=== PATIENT | female | born 1960 | race Caucasian/White ===

== ENCOUNTER 2016-06-11 10:11 | Emergency (ER) | payer MEDICAID ==
[~2016-06-11] VITALS: Ht 170.2 cm; Wt 81.6 kg
[~2016-06-11 10:11] MED LIST: ALPR-229 PO; HYDR-2616 PO; LACO100T PO; LAMO200T34 PO; LEVE750T16 PO; LISI-275 PO; METH4PAK PO; NITR-48 PO; NORTRIPTYLINE PO
[2016-06-11 10:28] VITALS: BP 110/58
== END 2016-06-11 11:36 | disposition home or self-care (01) ==
LOC: ER 10:11
DX: J20.9 Acute bronchitis, unspecified (principal); J44.9 Chronic obstructive pulmonary disease, unspecified; I10 Essential (primary) hypertension; F17.210 Nicotine dependence, cigarettes, uncomplicated
CPT/HCPCS: 71020; 99284; J7030

== ENCOUNTER 2017-01-11 11:09 | Emergency (ER) | payer MEDICAID ==
[~2017-01-11] VITALS: Ht 170.2 cm; Wt 86.2 kg
[2017-01-11 11:09] VITALS: BP 142/92
[2017-01-11] MEDS ORDERED: KETOROLAC TROMETH 60MG/2ML VIAL IM ONE (13:15)
[2017-01-11] MEDS ORDERED: diphenhdrAMINE HCL 25 MG CAP PO ONE (13:15)
== END 2017-01-11 14:08 | disposition home or self-care (01) ==
LOC: ER 11:09
DX: J32.9 Chronic sinusitis, unspecified (principal); I10 Essential (primary) hypertension; G40.909 Epilepsy, unspecified, not intractable, without status epilepticus; Z98.51 Tubal ligation status; F17.210 Nicotine dependence, cigarettes, uncomplicated
CPT/HCPCS: 70486; 96372; 99284; J1885

== ENCOUNTER 2017-08-01 16:13 | Observation (INO) | payer MEDICAID ==
[~2017-08-01] VITALS: Ht 170.2 cm; Wt 86.2 kg
[~2017-08-01 16:13] MED LIST changes: +ALPR1TAB2 PO; +FENO1TAB42 PO; -HYDR-2616 PO; +LEVE500T22 PO; -LEVE750T16 PO; -LISI-275 PO; -METH4PAK PO; +NORT25CA PO; -NORTRIPTYLINE PO
[2017-08-01 18:01] LABS: Basophils # (auto) 0.1 uL; Eosinophils # (auto) 0.1 uL; Eosinophils % (auto) 1.7 % (0.0-7.0); Hematocrit 43.3 % (36.0-46.0); Hemoglobin 14.5 g/dL (12.2-16.2); Lymphocytes # (auto) 2.2 uL; Lymphocytes % (auto) 35.6 % (10.0-50.0); Mean Corpuscular Hemoglobin 30.9 pg (28.0-32.0); Mean Corpuscular Hgb Conc. 33.4 g/dL (32.0-36.0); Mean Corpuscular Volume 92.5 fL (80.0-100.0); Monocytes # (auto) 0.4 uL; Monocytes % (auto) 7.3 % (0.0-12.0); Neutrophils # (auto) 3.3 uL; Neutrophils % (auto) 54.4 % (37.0-80.0); Nucleated Red Blood Cells % 0.3 %; Platelet Count (auto) 297 10^3/uL (140-450); Red Blood Cells 4.68 10^6/uL (4.0-5.20); Red Cell Distribution Width 13.2 % (11.8-14.3); White Blood Cell 6.1 10^3/uL (4.4-10.8)
[2017-08-01 18:21] LABS: Urine Bacteria NONE SEEN /hpf (None Seen); Urine Blood Negative /uL (Negative); Urine Mucus FEW (None Seen); Urine Specific Gravity 1.025 (1.001-1.035); Urine WBC 229 /hpf (0 - 5)
[2017-08-01 18:29] LABS: Alanine Aminotransferase 34 U/L (13-56); Albumin 4.3 g/dL (3.4-5.0); Alkaline Phosphatase 67 U/L (45-117); Anion Gap 10 (5-15); BUN/Creatinine Ratio 8.6; Bilirubin, Total 0.5 mg/dL (0.2-1.0); Blood Urea Nitrogen 7 mg/dL (7-18); Carbon Dioxide 24 mmol/L (21-32); Chloride 107 mmol/L (98-107); GFR African American 94 mL/min; GFR Non-African American 78 mL/min; Glucose 91 mg/dL (74-106); Potassium 3.9 mmol/L (3.5-5.1); Sodium 141 mmol/L (136-145); Total Protein 7.7 g/dL (6.4-8.2)
[2017-08-01 18:48] LABS: Aspartate Aminotransferase 19 U/L (15-37)
[2017-08-01] MEDS ORDERED: ACETAMINOPHEN 325 MG TAB PO ONE (19:15)
[2017-08-01 20:03] LABS: Alcohol, Urine < 3.0 mg/dL (0-5); Amphetamine Screen, Urine NEGATIVE (NEGATIVE); Barbiturate Scree,Urine NEGATIVE (NEGATIVE); Benzodiazephine Screen, Urine POSITIVE (NEGATIVE); Cannabinoid Screen, Urine NEGATIVE (NEGATIVE); Cocaine Screen, Urine NEGATIVE (NEGATIVE); Opiate Scree,Urine NEGATIVE (NEGATIVE); Phencyclidine Screen, Urine NEGATIVE (NEGATIVE)
[2017-08-01 21:00] VITALS: BP 150/95
[2017-08-01] MEDS ORDERED: cefTRIAXone 1GM/10ml IVPUSH 10 ML IV ONE (21:00)
== END 2017-08-01 21:26 | disposition home or self-care (01) | DRG 54 ==
LOC: ER 16:13 → OVERFLOW 19:16 → ER 21:26
PROVIDERS: ADMIT Family Medicine; ATTEND Family Medicine
DX: R51 Headache (principal); N30.00 Acute cystitis without hematuria; G40.909 Epilepsy, unspecified, not intractable, without status epilepticus; Z82.49 Family history of ischemic heart disease and other diseases of the circulatory system
CPT/HCPCS: 36415; 70450; 71045; 80053; 80307; 81001; 83735; 84484; 85025; 99285; G0378

== ENCOUNTER 2017-08-04 10:28 | Emergency (ER) | payer MEDICAID ==
[~2017-08-04] VITALS: Ht 170.2 cm; Wt 88.0 kg
[2017-08-04 10:38] VITALS: BP 134/56
== END 2017-08-04 16:20 | disposition left against medical advice (07) ==
LOC: ER 10:28
DX: R63.0 Anorexia (principal); R42 Dizziness and giddiness; Z53.21 Procedure and treatment not carried out due to patient leaving prior to being seen by health care provider
CPT/HCPCS: 93005

== ENCOUNTER 2017-10-22 11:40 | Emergency (ER) | payer MEDICAID ==
[~2017-10-22] VITALS: Ht 170.2 cm; Wt 87.1 kg
[2017-10-22] MEDS ORDERED: LORazepam 2MG/ML-1ML VIAL ONE (12:04)
[2017-10-22] MEDS ORDERED: LORazepam 2MG/ML-1ML VIAL IV ONE (12:15)
[2017-10-22 12:18] LABS: Urine WBC None Seen /hpf (0 - 5)
[2017-10-22 12:18] LABS: Basophils # (auto) 0 uL; Basophils % (auto) 0.5 % (0.0-2.0); Eosinophils # (auto) 0.1 uL; Hematocrit 45.1 % (36.0-46.0); Lymphocytes # (auto) 2.2 uL; Lymphocytes % (auto) 29.5 % (10.0-50.0); Mean Corpuscular Hemoglobin 30.7 pg (28.0-32.0); Mean Corpuscular Hgb Conc. 33.3 g/dL (32.0-36.0); Mean Corpuscular Volume 92.2 fL (80.0-100.0); Monocytes # (auto) 0.3 uL; Monocytes % (auto) 4.5 % (0.0-12.0); Neutrophils # (auto) 4.8 uL; Neutrophils % (auto) 64.5 % (37.0-80.0); Nucleated Red Blood Cells % 0.1 %; Platelet Count (auto) 332 10^3/uL (140-450); Red Blood Cells 4.89 10^6/uL (4.0-5.20); Red Cell Distribution Width 12.9 % (11.8-14.3); White Blood Cell 7.4 10^3/uL (4.4-10.8)
[2017-10-22] MEDS ORDERED: LEVETIRACETAM INJ 1,000 MG in D5W 5% 100 ML IV ONE (12:30)
[2017-10-22 12:33] LABS: Urine Bacteria NONE SEEN /hpf (None Seen); Urine Blood Negative /uL (Negative); Urine Specific Gravity 1.007 (1.001-1.035)
[2017-10-22] MEDS ORDERED: ACETAMINOPHEN 325 MG TAB PO ONE (12:45)
[2017-10-22 13:06] LABS: Albumin 4.4 g/dL (3.4-5.0); BUN/Creatinine Ratio 7.6; Bilirubin, Total 0.4 mg/dL (0.2-1.0); Total Protein 7.9 g/dL (6.4-8.2)
[2017-10-22 14:53] VITALS: BP 125/92
== END 2017-10-22 15:32 | disposition home or self-care (01) ==
LOC: ER 11:40
DX: G40.909 Epilepsy, unspecified, not intractable, without status epilepticus (principal); I12.9 Hypertensive chronic kidney disease with stage 1 through stage 4 chronic kidney disease, or unspecified chronic kidney disease; N18.9 Chronic kidney disease, unspecified; E78.5 Hyperlipidemia, unspecified; F17.210 Nicotine dependence, cigarettes, uncomplicated
CPT/HCPCS: 36415; 80053; 81001; 82542; 85025; 93005; 94761; 96365; 96375; 99285; J1953; J2060; J7060

== ENCOUNTER 2018-04-13 17:22 | Emergency (ER) | payer MEDICAID ==
[~2018-04-13] VITALS: Ht 167.6 cm; Wt 79.4 kg
[~2018-04-13 17:22] MED LIST changes: -NITR-48 PO; +NITR100C44 PO
[2018-04-13 18:14] LABS: Basophils # (auto) 0 uL; Basophils % (auto) 0.5 % (0.0-2.0); Eosinophils # (auto) 0.1 uL; Eosinophils % (auto) 0.8 % (0.0-7.0); Hematocrit 41.7 % (36.0-46.0); Hemoglobin 13.9 g/dL (12.2-16.2); Lymphocytes # (auto) 1.2 uL; Lymphocytes % (auto) 16.2 % (10.0-50.0); Mean Corpuscular Hemoglobin 30.8 pg (28.0-32.0); Mean Corpuscular Hgb Conc. 33.4 g/dL (32.0-36.0); Mean Corpuscular Volume 92.1 fL (80.0-100.0); Monocytes # (auto) 0.3 uL; Monocytes % (auto) 3.9 % (0.0-12.0); Neutrophils # (auto) 5.8 uL; Neutrophils % (auto) 78.6 % (37.0-80.0); Platelet Count (auto) 301 10^3/uL (140-450); Red Blood Cells 4.52 10^6/uL (4.0-5.20); Red Cell Distribution Width 12.8 % (11.8-14.3); White Blood Cell 7.3 10^3/uL (4.4-10.8)
[2018-04-13 18:32] LABS: Albumin 4.3 g/dL (3.4-5.0); BUN/Creatinine Ratio 12.8; Calcium 9.2 mg/dL (8.5-10.1); Potassium 3.9 mmol/L (3.5-5.1)
[2018-04-13 18:35] LABS: Bilirubin, Total 0.5 mg/dL (0.2-1.0); Total Protein 7.7 g/dL (6.4-8.2)
[2018-04-14 05:43] VITALS: BP 139/97
[2018-04-14] MEDS ORDERED: MECLIZINE HCL 25 MG TAB PO ONE (07:15)
[2018-04-14 08:29] LABS: Urine Bacteria FEW /hpf (None Seen); Urine Blood Negative /uL (Negative); Urine Mucus FEW (None Seen); Urine Specific Gravity 1.013 (1.001-1.035); Urine WBC 25 /hpf (0 - 5)
== END 2018-04-14 08:57 | disposition home or self-care (01) ==
LOC: ER 17:22 → EDBD 17:22 → ER 04-14 08:57
DX: R42 Dizziness and giddiness (principal); I12.9 Hypertensive chronic kidney disease with stage 1 through stage 4 chronic kidney disease, or unspecified chronic kidney disease; N18.9 Chronic kidney disease, unspecified; E78.5 Hyperlipidemia, unspecified; F17.210 Nicotine dependence, cigarettes, uncomplicated; Z88.8 Allergy status to other drugs, medicaments and biological substances; Z79.899 Other long term (current) drug therapy; Z98.51 Tubal ligation status
CPT/HCPCS: 36415; 70450; 80053; 81001; 85025; 93005; 99284; J8597

== ENCOUNTER 2019-01-02 21:13 | Emergency (ER) | payer MEDICAID ==
[~2019-01-02] VITALS: Ht 172.7 cm; Wt 67.1 kg
[2019-01-02 22:32] LABS: Urine Bacteria FEW /hpf (None Seen); Urine Blood Negative /uL (Negative); Urine Hyaline Cast FEW /lpf (0 - 2); Urine Specific Gravity 1.022 (1.001-1.035); Urine WBC 28 /hpf (0 - 5)
[2019-01-02 22:42] LABS: Basophils # (auto) 0 uL; Basophils % (auto) 0.4 % (0.0-2.0); Eosinophils # (auto) 0.1 uL; Eosinophils % (auto) 1.5 % (0.0-7.0); Hematocrit 40.3 % (36.0-46.0); Hemoglobin 13.8 g/dL (12.2-16.2); Lymphocytes # (auto) 1.1 uL; Lymphocytes % (auto) 18.5 % (10.0-50.0); Mean Corpuscular Hemoglobin 31.4 pg (28.0-32.0); Mean Corpuscular Hgb Conc. 34.2 g/dL (32.0-36.0); Mean Corpuscular Volume 91.9 fL (80.0-100.0); Monocytes # (auto) 0.3 uL; Monocytes % (auto) 5.5 % (0.0-12.0); Neutrophils # (auto) 4.5 uL; Neutrophils % (auto) 74.1 % (37.0-80.0); Platelet Count (auto) 285 10^3/uL (140-450); Red Blood Cells 4.38 10^6/uL (4.0-5.20); Red Cell Distribution Width 12.8 % (11.8-14.3); White Blood Cell 6.1 10^3/uL (4.4-10.8)
[2019-01-02 22:59] LABS: Albumin 4.5 g/dL (3.4-5.0); Anion Gap 7 (5-15); Blood Urea Nitrogen 10 mg/dL (7-18); Calcium 9.4 mg/dL (8.5-10.1); Carbon Dioxide 26 mmol/L (21-32); Chloride 107 mmol/L (98-107); Glucose 99 mg/dL (74-106); Magnesium 2.5 mg/dL (1.6-2.6); Sodium 140 mmol/L (136-145)
[2019-01-02 23:05] LABS: Alanine Aminotransferase 28 U/L (13-56); Alkaline Phosphatase 39 U/L (45-117); Aspartate Aminotransferase 17 U/L (15-37); BUN/Creatinine Ratio 9.6; Bilirubin, Total 0.4 mg/dL (0.2-1.0); GFR African American 70 mL/min; GFR Non-African American 58 mL/min
[2019-01-02 23:11] LABS: INR 1.09 (0.9-1.15); Partial Thromboplastin Time 24.1 sec (23.64-32.05)
[2019-01-03 00:33] LABS: Alcohol, Urine < 3.0 mg/dL (0-5); Amphetamine Screen, Urine NEGATIVE (NEGATIVE); Barbiturate Scree,Urine NEGATIVE (NEGATIVE); Benzodiazephine Screen, Urine NEGATIVE (NEGATIVE); Cannabinoid Screen, Urine NEGATIVE (NEGATIVE); Cocaine Screen, Urine NEGATIVE (NEGATIVE); Opiate Scree,Urine NEGATIVE (NEGATIVE); Phencyclidine Screen, Urine NEGATIVE (NEGATIVE)
[2019-01-03 07:48] VITALS: BP 105/75
[2019-01-03] MEDS ORDERED: ONDANSETRON ODT 4 MG TAB PO ONE (08:00)
[2019-01-03] MEDS ORDERED: MECLIZINE HCL 25 MG TAB PO ONE (08:00)
== END 2019-01-03 08:00 | disposition home or self-care (01) ==
LOC: EDBD 21:13 → ER 21:20
DX: R42 Dizziness and giddiness (principal); N39.0 Urinary tract infection, site not specified; E78.5 Hyperlipidemia, unspecified; I12.9 Hypertensive chronic kidney disease with stage 1 through stage 4 chronic kidney disease, or unspecified chronic kidney disease; N18.9 Chronic kidney disease, unspecified; F17.210 Nicotine dependence, cigarettes, uncomplicated; Z98.51 Tubal ligation status; Z79.899 Other long term (current) drug therapy
CPT/HCPCS: 36415; 70450; 71045; 80053; 80307; 81001; 83735; 83880; 84484; 85025; 85379; 85610; 85730; 93005; 99284; J8597; Q0162

== ENCOUNTER 2019-02-24 19:35 | Emergency (ER) | payer MEDICAID ==
[~2019-02-24] VITALS: Ht 170.2 cm; Wt 36.3 kg
[2019-02-24 20:09] LABS: Basophils # (auto) 0.1 uL; Basophils % (auto) 0.9 % (0.0-2.0); Eosinophils # (auto) 0.2 uL; Eosinophils % (auto) 2.3 % (0.0-7.0); Hematocrit 40.3 % (36.0-46.0); Hemoglobin 13.4 g/dL (12.2-16.2); Lymphocytes # (auto) 2.9 uL; Lymphocytes % (auto) 35.3 % (10.0-50.0); Mean Corpuscular Hemoglobin 30.9 pg (28.0-32.0); Mean Corpuscular Hgb Conc. 33.2 g/dL (32.0-36.0); Mean Corpuscular Volume 93.1 fL (80.0-100.0); Monocytes # (auto) 0.4 uL; Monocytes % (auto) 4.9 % (0.0-12.0); Neutrophils # (auto) 4.7 uL; Neutrophils % (auto) 56.6 % (37.0-80.0); Nucleated Red Blood Cells % 0.1 %; Platelet Count (auto) 360 10^3/uL (140-450); Red Blood Cells 4.33 10^6/uL (4.0-5.20); Red Cell Distribution Width 13.4 % (11.8-14.3); White Blood Cell 8.3 10^3/uL (4.4-10.8)
[2019-02-24 20:30] LABS: Albumin 4.1 g/dL (3.4-5.0); BUN/Creatinine Ratio 15.2; Calcium 8.5 mg/dL (8.5-10.1); Potassium 3.9 mmol/L (3.5-5.1)
[2019-02-24] MEDS ORDERED: MORPHINE SULFATE 4 MG/ML SYR/VIAL IV ONE ×2 (20:30→22:45)
[2019-02-24] MEDS ORDERED: ONDANSETRON HCL 4 MG/2 ML VIAL IV ONE (20:30)
[2019-02-24 20:32] LABS: Bilirubin, Total 0.3 mg/dL (0.2-1.0); Total Protein 7.6 g/dL (6.4-8.2)
[2019-02-24 22:50] LABS: INR 1.06 (0.9-1.15); Partial Thromboplastin Time 23.6 sec (23.64-32.05)
[2019-02-24 23:13] VITALS: BP 139/67
[2019-02-24] MEDS ORDERED: PROMETHAZINE HCL 25 MG/ML 1ML IV ONE (23:15)
== END 2019-02-25 00:13 | disposition short-term general hospital (02) ==
LOC: EDBD 19:35 → ER 19:38
DX: S22.20XA Unspecified fracture of sternum, initial encounter for closed fracture (principal); S22.31XA Fracture of one rib, right side, initial encounter for closed fracture; S16.1XXA Strain of muscle, fascia and tendon at neck level, initial encounter; S30.1XXA Contusion of abdominal wall, initial encounter; R51 Headache; I12.9 Hypertensive chronic kidney disease with stage 1 through stage 4 chronic kidney disease, or unspecified chronic kidney disease; N18.9 Chronic kidney disease, unspecified; E78.5 Hyperlipidemia, unspecified; Z98.51 Tubal ligation status; Z88.4 Allergy status to anesthetic agent; Z79.899 Other long term (current) drug therapy; V43.62XA Car passenger injured in collision with other type car in traffic accident, initial encounter; Y93.89 Activity, other specified; Y99.8 Other external cause status; Y92.410 Unspecified street and highway as the place of occurrence of the external cause
CPT/HCPCS: 36415; 70450; 71250; 72125; 74176; 80053; 84484; 85025; 85610; 85730; 93005; 96374; 96375; 96376; 99291; J2270; J2405; J2550

== ENCOUNTER 2019-06-01 18:48 | Emergency (ER) | payer MEDICAID ==
[~2019-06-01] VITALS: Ht 170.2 cm; Wt 81.6 kg
[~2019-06-01 18:48] MED LIST changes: -ALPR-229 PO; +ALPR2TAB6 PO; +FENO145T27 PO; -FENO1TAB42 PO
[2019-06-01 21:33] LABS: Albumin 4.4 g/dL (3.4-5.0); Calcium 9.3 mg/dL (8.5-10.1); Potassium 3.6 mmol/L (3.5-5.1)
[2019-06-01 21:37] LABS: Bilirubin, Total 0.6 mg/dL (0.2-1.0); Total Protein 8.3 g/dL (6.4-8.2)
[2019-06-01 21:40] LABS: Basophils # (auto) 0 uL; Basophils % (auto) 0.4 % (0.0-2.0); Eosinophils # (auto) 0.1 uL; Eosinophils % (auto) 0.8 % (0.0-7.0); Hematocrit 43.5 % (36.0-46.0); Hemoglobin 14.7 g/dL (12.2-16.2); Lymphocytes # (auto) 1.7 uL; Lymphocytes % (auto) 17.6 % (10.0-50.0); Mean Corpuscular Hemoglobin 30.9 pg (28.0-32.0); Mean Corpuscular Hgb Conc. 33.8 g/dL (32.0-36.0); Mean Corpuscular Volume 91.3 fL (80.0-100.0); Monocytes # (auto) 0.4 uL; Monocytes % (auto) 4.5 % (0.0-12.0); Neutrophils # (auto) 7.2 uL; Neutrophils % (auto) 76.7 % (37.0-80.0); Nucleated Red Blood Cells % 0.1 %; Platelet Count (auto) 312 10^3/uL (140-450); Red Blood Cells 4.76 10^6/uL (4.0-5.20); Red Cell Distribution Width 12.9 % (11.8-14.3); White Blood Cell 9.4 10^3/uL (4.4-10.8)
[2019-06-01] MEDS ORDERED: SODIUM CHLORIDE 0.9% 1,000 ML IV ONE (23:30)
[2019-06-01] MEDS ORDERED: FAMOTIDINE (10MG/ML) 2ML VL IV ONE (23:30)
[2019-06-01] MEDS ORDERED: ONDANSETRON HCL 4 MG/2 ML VIAL IV ONE (23:30)
[2019-06-01] MEDS ORDERED: MECLIZINE HCL 25 MG TAB PO ONE (23:30)
[2019-06-02] VITALS: BP 119/63
== END 2019-06-02 05:09 | disposition home or self-care (01) ==
LOC: ER 18:50
DX: E86.0 Dehydration (principal); R51 Headache; R42 Dizziness and giddiness; I12.9 Hypertensive chronic kidney disease with stage 1 through stage 4 chronic kidney disease, or unspecified chronic kidney disease; N18.9 Chronic kidney disease, unspecified; E78.5 Hyperlipidemia, unspecified; F17.210 Nicotine dependence, cigarettes, uncomplicated
CPT/HCPCS: 36415; 70450; 80053; 82542; 85025; 96361; 96374; 96375; 99284; J2405; J3490; J7030; J8597

== ENCOUNTER 2019-07-05 09:36 | Emergency (ER) | payer MEDICAID ==
[~2019-07-05] VITALS: Ht 170.2 cm; Wt 86.2 kg
[2019-07-05 09:46] VITALS: BP 130/82
== END 2019-07-05 11:31 | disposition home or self-care (01) ==
LOC: ER 09:36
DX: J20.9 Acute bronchitis, unspecified (principal); I12.9 Hypertensive chronic kidney disease with stage 1 through stage 4 chronic kidney disease, or unspecified chronic kidney disease; N18.9 Chronic kidney disease, unspecified; E78.5 Hyperlipidemia, unspecified; F17.210 Nicotine dependence, cigarettes, uncomplicated; Z98.51 Tubal ligation status
CPT/HCPCS: 71046

== ENCOUNTER 2019-10-28 14:24 | Emergency (ER) | payer MEDICAID ==
[~2019-10-28] VITALS: Ht 170.2 cm; Wt 86.2 kg
[2019-10-28 14:35] VITALS: BP 148/82
[2019-10-28] MEDS ORDERED: KETOROLAC TROMETH 60MG/2ML VIAL IM ONE (16:15)
== END 2019-10-28 16:36 | disposition home or self-care (01) ==
LOC: ER 14:24
DX: S46.911A Strain of unspecified muscle, fascia and tendon at shoulder and upper arm level, right arm, initial encounter (principal); S83.92XA Sprain of unspecified site of left knee, initial encounter; F17.210 Nicotine dependence, cigarettes, uncomplicated; I11.0 Hypertensive heart disease with heart failure; I50.9 Heart failure, unspecified; E78.5 Hyperlipidemia, unspecified; Z98.51 Tubal ligation status; Z88.6 Allergy status to analgesic agent; Z79.899 Other long term (current) drug therapy; W10.8XXA Fall (on) (from) other stairs and steps, initial encounter; Y93.89 Activity, other specified; Y92.89 Other specified places as the place of occurrence of the external cause; Y99.8 Other external cause status
CPT/HCPCS: 73030; 73562; 96372; 99284; J1885

== ENCOUNTER 2019-11-30 14:08 | Emergency (ER) | payer MEDICAID ==
[~2019-11-30] VITALS: Ht 170.2 cm; Wt 86.2 kg
[2019-11-30 14:23] VITALS: BP 140/86
[2019-11-30] MEDS ORDERED: ACETAMINOPHEN 500 MG TAB PO ONE (15:00)
== END 2019-11-30 15:17 | disposition home or self-care (01) ==
LOC: ER 14:08
DX: J01.91 Acute recurrent sinusitis, unspecified (principal)

== ENCOUNTER 2020-02-13 14:28 | Emergency (ER) | payer MEDICAID ==
[~2020-02-13] VITALS: Ht 170.2 cm; Wt 81.6 kg
[~2020-02-13 14:28] MED LIST changes: -LEVE500T22 PO; +LEVE500T32 PO; +NITR-87 PO; -NITR100C44 PO
[2020-02-13 15:19] VITALS: BP 151/75
[2020-02-13] MEDS ORDERED: IBUPROFEN 800 MG TAB PO ONE (16:15)
[2020-02-13] MEDS ORDERED: METHOCARBAMOL 500 MG TAB PO ONE (16:15)
== END 2020-02-13 16:39 | disposition home or self-care (01) ==
LOC: ER 14:28
DX: S33.5XXA Sprain of ligaments of lumbar spine, initial encounter (principal); N39.0 Urinary tract infection, site not specified; F17.210 Nicotine dependence, cigarettes, uncomplicated; I12.9 Hypertensive chronic kidney disease with stage 1 through stage 4 chronic kidney disease, or unspecified chronic kidney disease; N18.9 Chronic kidney disease, unspecified; E78.5 Hyperlipidemia, unspecified; Z79.899 Other long term (current) drug therapy; Z88.8 Allergy status to other drugs, medicaments and biological substances; X58.XXXA Exposure to other specified factors, initial encounter; Y93.89 Activity, other specified; Y92.89 Other specified places as the place of occurrence of the external cause; Y99.8 Other external cause status
CPT/HCPCS: 72100; 72220

== ENCOUNTER 2023-07-26 11:23 | Emergency (ER) | payer MEDICAID ==
[~2023-07-26] VITALS: Ht 170.2 cm; Wt 90.4 kg
[~2023-07-26 11:23] MED LIST changes: -LEVE500T32 PO; +LEVE500T40 PO
[2023-07-26 11:33] VITALS: BP 170/58; PULSE 82; RESP 16; O2SAT 95
[2023-07-26] MEDS ORDERED: AUG875T PO (14:41)
[2023-07-26] MEDS ORDERED: ACET500T58 PO (14:41)
[2023-07-26] MEDS ORDERED: PSEU120T2 PO (14:41)
== END 2023-07-26 14:50 | disposition home or self-care (01) ==
LOC: ER 11:23
DX: J32.1 Chronic frontal sinusitis (principal); I12.9 Hypertensive chronic kidney disease with stage 1 through stage 4 chronic kidney disease, or unspecified chronic kidney disease; N18.9 Chronic kidney disease, unspecified; E78.5 Hyperlipidemia, unspecified; F32.9 Major depressive disorder, single episode, unspecified; F17.210 Nicotine dependence, cigarettes, uncomplicated; Z98.890 Other specified postprocedural states

== ENCOUNTER 2024-04-25 14:07 | Emergency (ER) | payer MEDICAID ==
[~2024-04-25] VITALS: Ht 170.2 cm; Wt 85.0 kg
[~2024-04-25 14:07] MED LIST changes: +ACET500T58 PO; +ALBU108A5 IN; +AUG875T PO; +AZIT500T66 PO; +BENZ200C64 PO; +CEPH500C PO; +HYDR-4798 PO; +KEP500T PO; +LACO10SO3 PO; +LAMO200T2 PO; +LISI10TA34 PO; +MECL12.586 PO; +MEMA1TAB3 PO; +PHEN-922 PO; +PHEN95TA17 OR; +PRED20TA2 PO; +PROM1SOL4 PO; +PSEU120T2 PO
--- NOTE | 2024-04-25 14:20 | ED.PDOC ---
History of Present Illness HPI Comments 64 year old female presents to the ED with chief complaint of cough. Patient reports that she has been experiencing a productive cough with yellow phlegm for the past few days and a headache for the past 2 days. Patient denies any N/V/D, chest pain, SOB, dizziness, fever, or chills. Time Seen by MD: 14:14 Primary Care Provider: Ron Reviewed Notes: Nurses Notes, Medications, Allergies Allergies: Coded Allergies: Lidocaine (Verified Allergy, Unknown, 09/03/15) Home Meds Active Scripts Hydrocodone-Acetaminophen (Hydrocodone Bitartrate/AC 10-325 mg) 1 Tab Tab, 1 TAB PO BID, #10 TAB Prov:MARGE GARSIA 01/20/24 Cephalexin Monohydrate (Cephalexin) 500 Mg Cap, 1 CAP PO TID for 3 Days, #9 CAP Prov:SHWETHA ANDREA MD 01/02/24 Phenazopyridine HCl (Phenazopyridine Hydrochlo) 200 Mg Tab, 200 MG PO TID for 2 Days, #6 TAB 0 Refills Prov:MYRA GARCIA NP 11/09/23 Nitrofurantoin Monohydrate Mac (Macrobid) 100 Mg Cap, 100 MG PO BID for 7 Days, #14 CAP 0 Refills Prov:MYRA GARCIA NP 11/09/23 Promethazine-Dm (Promethazine Dm 6.25-15 mg/5Ml) 1 Alexa Alexa, 5 ML PO TID, #180 ML Prov:MARGE GARSIA 09/10/23 Albuterol Sulfate (Albuterol Sulfate Hfa) 108 Mcg/Act Aer, 108 MCG IN TID, #90 AER Prov:MAGRE GARSIA 09/10/23 Prednisone (Prednisone) 20 Mg Tab, 60 MG PO DAILY, #15 TAB Prov:MARGE GARSIA 09/04/23 Benzonatate (Benzonatate) 200 Mg Cap, 1 CAP PO TIDP, #30 CAP Prov:MARGE GARSIA 09/04/23 Azithromycin (Azithromycin) 500 Mg Tab, 1 TAB PO DAILY, #5 TAB Prov:MARGE GARSIA 09/04/23 Acetaminophen (Acetaminophen) 500 Mg Tab, 500 MG PO TIDPRN PRN for 10 Days, #30 TAB 0 Refills Prov:MYRA GARCIA INSULATION MACHINE OPERATOR 07/26/23 Pseudoephedrine (Sudafed 12 Hour) 120 Mg Tab, 1 TAB PO BID for 10 Days, #20 TAB 0 Refills Prov:MYRA GARCIA INSULATION MACHINE OPERATOR 07/26/23 Amoxicillin & Pot Clavulanate (AUGMENTIN TABLET) 875 Mg Tb, 875 MG PO BID for 7 Days, #14 TAB 0 Refills Prov:MYRA GARCIA INSULATION MACHINE OPERATOR 07/26/23 Nitrofurantoin Monohydrate Mac (Macrobid) 100 Mg Cap, 100 MG PO Q12HR, #13 CAP Prov:STAR ALVARADO MD 05/12/17 Reported Medications Memantine Hydrochloride (Memantine HCl) 5 Mg Tab, 5 MG PO BID, TAB 01/01/24 Meclizine Hcl (Meclizine Hcl) 12.5 Mg Tab, 12.5 MG PO BIDP PRN for DIZZINESS for 30 Days, MG 01/01/24 Lisinopril (Lisinopril) 10 Mg Tab, 10 MG PO DAILY for 30 Days, MG 01/01/24 Lacosamide (Vimpat) 10 Mg/Ml Alexa, 10 MG PO BID, ML 01/01/24 Lamotrigine (Lamictal) 200 Mg Tab, 200 MG PO BID, TAB 01/01/24 Levetiracetam (KEPPRA TABLET) 500 Mg Tb, 500 MG PO BID, TAB 01/01/24 Phenazopyridine Hcl (EQ URINARY PAIN RELIEF) 95 Mg Tab, 95 MG OR BID, TAB 01/01/24 Nortriptyline Hcl (PAMELOR CAPSULE) 25 Mg Cp, 10 MG PO BID, #30 CAP 05/12/17 Fenofibrate (FENOFIBRATE) 145 Mg Tab, 1 TAB PO DAILY, #30 TAB 5 Refills 05/12/17 Alprazolam (Xanax) 1 Mg Tab, 1 TAB PO TID, #90 TAB 05/12/17 Levetiracetam (Keppra) 500 Mg Tab, 1000 MG PO BID for 30 Days, MG 05/11/17 [Alprazolam2 Mg] (Alprazolam) 2 MG TAB No Conflict Check, 2 MG PO BID, 0 Refills 01/10/13 Lamotrigine (Lamotrigine) 200 Mg Tab, 200 MG PO BID 03/16/12 Lacosamide (Vimpat) 100 Mg Tab, 100 MG PO BID 03/16/12 Information Source: Patient Mode of Arrival: Ambulatory Severity: Moderate Timing: Days Duration: Since onset Prehospital treatment: None Past Medical History PAST MEDICAL HISTORY: CKF, Depression, High Lipids, HTN, Seizures Past Medical History (Other): Hearing problems, Fractured back. Surgical History: Tubal Ligation VALIDATION ARCHITECT History: No Pertinent VALIDATION ARCHITECT History Family History Family History: Reviewed,noncontributory to illness, Family hx of heart letty, Family hx of HTN Social History Smoker: Cigarettes, Less Than 1 Pack/Day Alcohol: Denies ETOH Use Drugs: Denies Drug Use Lives In: Home Constitutional: denies: chills, diaphoresis, fatigue, fever, malaise, sweats, weakness, others EENTM: denies: blurred vision, double vision, ear bleeding, ear discharge, ear drainage, ear pain, ear ringing, eye pain, eye redness, hearing loss, mouth pain, mouth swelling, nasal discharge, nose bleeding, nose congestion, nose pain, photophobia, tearing, throat pain, throat swelling, voice changes, others Respiratory: reports: cough; denies: hemoptysis, orthopnea, SOB at rest, shortness of breath, SOB with excertion, stridor, wheezing, others Cardiovascular: denies: chest pain, dizzy spells, diaphoresis, Dyspnea on exertion, edema, irregular heart beat, left arm pain, lightheadedness, palpitations, PND, syncope, others Gastrointestinal: denies: abdomen distended, abdominal pain, blood streaked bowels, constipated, diarrhea, dysphagia, difficulty swallowing, hematemesis, melena, nausea, poor appetite, poor fluid intake, rectal bleeding, rectal pain, vomiting, others Genitourinary: denies: abnormal vagina bleeding, burning, dyspareunia, dysuria, flank pain, frequency, hematuria, incontinence, pain, , vagina discharge, urgency, others Neurological: reports: headache; denies: dizziness, fainting, left sided numbness, left sided weakness, numbness, paresthesia, pre-existing deficit, right sided numbness, right sided weakness, seizure, speech problems, tingling, tremors, weakness, others Musculoskeletal: denies: back pain, gout, joint pain, joint swelling, muscle pain, muscle stiffness, neck pain, others Integumetry: denies: bruises, change in color, change in hair/nails, dryness, laceration, lesions, lumps, rash, wounds, others Allergic/Immunocompromised: denies: Difficulty Healing, Frequent Infections, Hives, Itching, others Hematologic/Lymphatic: denies: anemia, blood clots, easy bleeding, easy bruising, swollen glands, others Endocrine: denies: excessive hunger, excessive sweating, excessive thirst, excessive urination, flushing, intolerance to cold, intolerance to heat, unexplained weight gain, unexplained weight loss, others Psychiatric: denies: anxiety, bipolar disorder, depression, hopeless, panic disorder, schizophrenia, sleepless, suicidal, others All Other Systems: Reviewed and Negative Physical Exam General Appearance: No Apparent Distress, Normal HEENT: Normal ENT Inspection, PERRL/EOMI, Pharynx Normal, TMs Normal Neck: Full Range of Motion, Non-Tender, Normal, Normal Inspection Respiratory: Chest Non-Tender, Lungs Clear, No Accessory Muscle Use, No Respiratory Distress, Normal Breath Sounds Cardiovascular: No Edema, No JVD, No Murmur, No Gallop, Normal Peripheral Pulses, Regular Rate/Rhythm Breast Exam: Deferred Gastrointestinal: No Organomegaly, Non Tender, No Pulsatile Mass, Normal Bowel Sounds, Soft Genitalia: Deferred Pelvic: Deferred Rectal: Deferred Extremities: No calf tenderness, Normal capillary refill, Normal inspection, Normal range of motion, Non-tender, No pedal edema Musculoskeletal : Apperance: Normal Neurologic: Alert, tile setter apprentice II-XII nml as Tested, No Motor Deficits, Normal Affect, Normal Mood, No Sensory Deficits Cerebellar Function: Normal Reflexes: Normal Skin: Dry, Normal Color, Warm Lymphatic: No Adenopathy Was a procedure done? Was a procedure done?: No Differential Dx Considerations may include: bronchitis, pneumonia, viral uri, postnasal drips, allergy, GERD X-Ray, Labs, Meds, VS Vital Signs Date Time Temp Pulse Resp B/P (MAP) Pulse Ox O2 Delivery O2 Flow Rate FiO2 04/25/24 14:16 98.6 100 18 153/96 (115) 96 Chest XR: FINDINGS: Lines and Tubes: None Lungs: No focal consolidation. Pleura: No effusion. No pneumothorax. Cardiomediastinal contours: Unremarkable Bones: No acute osseous abnormality. IMPRESSION: No acute cardiopulmonary disease. Images Reviewed?: Images reviewed and evaluated by me Time of 1ST Reevaluation: 15:14 Reevaluation 1ST: Unchanged Patient Education/Counseling: Diagnosis, Treatment, Prognosis, Need For Follow Up Family Education/Counseling: No Family Present Additional Information - The following tests were ordered, and results were reviewed by me: Chest XR - I reviewed and agreed with the following test results read by other provider: Chest XR - I discussed treatments and results with medical personnel. pt does not have pneumonia. she appears well. pt has bronchitis. i will start her on tessalon. she is stable to follow up with her PCP Departure 1 Departure Time of Disposition: 16:35 Impression: Primary Impression: Acute bronchitis Qualified Codes: J20.9 - Acute bronchitis, unspecified Disposition: HOME / SELF CARE / HOMELESS Condition: Good e-Prescriptions Albuterol Sulfate (Proair Respiclick) 108 Mcg/Act Aer 108 MCG IN Q4HP PRN, #1 AER Prov: REILLY ALVAREZ MD 04/25/24 Benzonatate (Benzonatate) 200 Mg Cap 1 CAP PO TID, #30 CAP Prov: REILLY ALVAREZ MD 04/25/24 Discharged With: Self Critical Care Note Critical Care Time?: No Stability Stability form required: No Heart Score Heart Score: Heart Score Response (Comments) Value History N/A 0 EKG N/A 0 Age N/A 0 Risk Factors N/A 0 Troponin N/A 0 Total 0 I personally scribed for REILLY ALVAREZ MD ([email or web address]) on 04/25/24 at 14:20. Electronically submitted by Cruz Parisi ([email or web address]). I personally scribed for REILLY ALVAREZ MD ([email or web address]) on 04/25/24 at 15:22. Electronically submitted by Cruz Parisi ([email or web address]). REILLY ALVAREZ MD Apr 25, 2024 14:20
--- NOTE | 2024-04-25 14:53 | DVH ---
EXAM: XY CHEST PORTABLE Indication: cough Technique: Single frontal view of the chest was obtained Comparison: None FINDINGS: Lines and Tubes: None Lungs: No focal consolidation. Pleura: No effusion. No pneumothorax. Cardiomediastinal contours: Unremarkable Bones: No acute osseous abnormality. IMPRESSION: No acute cardiopulmonary disease.
[2024-04-25] MEDS ORDERED: BENZ200C64 PO (16:37)
[2024-04-25] MEDS ORDERED: ALBU1AER4 IN (16:37)
[2024-04-25 16:43] VITALS: BP 140/62; TEMP 98.6
[2024-04-25 16:44] VITALS: PULSE 72; RESP 20; O2SAT 97
== END 2024-04-25 16:46 | disposition home or self-care (01) ==
LOC: ER 14:07
DX: J20.9 Acute bronchitis, unspecified (principal); E78.5 Hyperlipidemia, unspecified; I12.9 Hypertensive chronic kidney disease with stage 1 through stage 4 chronic kidney disease, or unspecified chronic kidney disease; N18.9 Chronic kidney disease, unspecified; F17.210 Nicotine dependence, cigarettes, uncomplicated; Z98.890 Other specified postprocedural states; Z88.6 Allergy status to analgesic agent; Z79.899 Other long term (current) drug therapy
CPT/HCPCS: 71045

== ENCOUNTER 2024-05-27 23:46 | Inpatient (IN) | payer MEDICAID ==
[~2024-05-27] VITALS: Ht 167.6 cm; Wt 89.9 kg
[~2024-05-27 23:46] MED LIST changes: +ALBU1AER4 IN
[2024-05-28] VITALS (12 sets, daily range): BP systolic 98–152; BP diastolic 56–78; PULSE 62–94; RESP 14–20; TEMP 97.9–98.2; O2SAT 92–100
--- NOTE | 2024-05-28 00:32 | ED.PDOC ---
History of Present Illness HPI Comments 64-year-old female came to ER via EMS for generalized weakness. Patient was very histrionic at time of evaluation. Patient is a poor informant. She states she has been unable to eat for the past 3 days. States she feels like something is blocking her from eating. Since then patient has been feeling generally weak, has been having difficulty standing up and ambulating, feeling dizzy with loss of balance. Vital signs were stable on arrival. Chief Complaint: General Weakness Time Seen by MD: 00:39 Primary Care Provider: Ron Reviewed Notes: Nurses Notes, Brake Tester Notes Allergies: Coded Allergies: Lidocaine (Verified Allergy, Unknown, 09/03/15) Home Meds Active Scripts Albuterol Sulfate (Proair Respiclick) 108 Mcg/Act Aer, 108 MCG IN Q4HP PRN, #1 AER Prov:REILLY ALVAREZ MD 04/25/24 Benzonatate (Benzonatate) 200 Mg Cap, 1 CAP PO TID, #30 CAP Prov:REILLY ALVAREZ MD 04/25/24 Hydrocodone-Acetaminophen (Hydrocodone Bitartrate/AC 10-325 mg) 1 Tab Tab, 1 TAB PO BID, #10 TAB Prov:MARGE GARSIA 01/20/24 Cephalexin Monohydrate (Cephalexin) 500 Mg Cap, 1 CAP PO TID for 3 Days, #9 CAP Prov:SHWETHA ANDREA MD 01/02/24 Phenazopyridine HCl (Phenazopyridine Hydrochlo) 200 Mg Tab, 200 MG PO TID for 2 Days, #6 TAB 0 Refills Prov:MYRA GARCIA NP 11/09/23 Nitrofurantoin Monohydrate Mac (Macrobid) 100 Mg Cap, 100 MG PO BID for 7 Days, #14 CAP 0 Refills Prov:MYRA GARCIA NP 11/09/23 Promethazine-Dm (Promethazine Dm 6.25-15 mg/5Ml) 1 Alexa Alexa, 5 ML PO TID, #180 ML Prov:MARGE GARSIA 09/10/23 Albuterol Sulfate (Albuterol Sulfate Hfa) 108 Mcg/Act Aer, 108 MCG IN TID, #90 AER Prov:MARGE GARSIA 09/10/23 Prednisone (Prednisone) 20 Mg Tab, 60 MG PO DAILY, #15 TAB Prov:MARGE GARSIA 09/04/23 Benzonatate (Benzonatate) 200 Mg Cap, 1 CAP PO TIDP, #30 CAP Prov:MARGE GARSIA 09/04/23 Azithromycin (Azithromycin) 500 Mg Tab, 1 TAB PO DAILY, #5 TAB Prov:MARGE GARSIA 09/04/23 Acetaminophen (Acetaminophen) 500 Mg Tab, 500 MG PO TIDPRN PRN for 10 Days, #30 TAB 0 Refills Prov:MYRA GARCIA DIRECTOR FOR [employer] 07/26/23 Pseudoephedrine (Sudafed 12 Hour) 120 Mg Tab, 1 TAB PO BID for 10 Days, #20 TAB 0 Refills Prov:MYRA GARCIA DIRECTOR FOR [employer] 07/26/23 Amoxicillin & Pot Clavulanate (AUGMENTIN TABLET) 875 Mg Tb, 875 MG PO BID for 7 Days, #14 TAB 0 Refills Prov:MYRA GARCIA DIRECTOR FOR [employer] 07/26/23 Nitrofurantoin Monohydrate Mac (Macrobid) 100 Mg Cap, 100 MG PO Q12HR, #13 CAP Prov:STAR ALVARADO MD 05/12/17 Reported Medications Memantine Hydrochloride (Memantine HCl) 5 Mg Tab, 5 MG PO BID, TAB 01/01/24 Meclizine Hcl (Meclizine Hcl) 12.5 Mg Tab, 12.5 MG PO BIDP PRN for DIZZINESS for 30 Days, MG 01/01/24 Lisinopril (Lisinopril) 10 Mg Tab, 10 MG PO DAILY for 30 Days, MG 01/01/24 Lacosamide (Vimpat) 10 Mg/Ml Alexa, 10 MG PO BID, ML 01/01/24 Lamotrigine (Lamictal) 200 Mg Tab, 200 MG PO BID, TAB 01/01/24 Levetiracetam (KEPPRA TABLET) 500 Mg Tb, 500 MG PO BID, TAB 01/01/24 Phenazopyridine Hcl (EQ URINARY PAIN RELIEF) 95 Mg Tab, 95 MG OR BID, TAB 01/01/24 Nortriptyline Hcl (PAMELOR CAPSULE) 25 Mg Cp, 10 MG PO BID, #30 CAP 05/12/17 Fenofibrate (FENOFIBRATE) 145 Mg Tab, 1 TAB PO DAILY, #30 TAB 5 Refills 05/12/17 Alprazolam (Xanax) 1 Mg Tab, 1 TAB PO TID, #90 TAB 05/12/17 Levetiracetam (Keppra) 500 Mg Tab, 1000 MG PO BID for 30 Days, MG 05/11/17 [Alprazolam2 Mg] (Alprazolam) 2 MG TAB No Conflict Check, 2 MG PO BID, 0 Refills 01/10/13 Lamotrigine (Lamotrigine) 200 Mg Tab, 200 MG PO BID 03/16/12 Lacosamide (Vimpat) 100 Mg Tab, 100 MG PO BID 03/16/12 Information Source: Patient, Emergency Med Personnel Mode of Arrival: EMS Severity: Moderate Timing: Days Duration: Intermittent Prehospital treatment: None Past Medical History PAST MEDICAL HISTORY: CKF, Depression, High Lipids, HTN, Seizures Surgical History: Tubal Ligation SOLUTIONS DEVELOPMENT ANALYST History: No Pertinent SOLUTIONS DEVELOPMENT ANALYST History Family History Family History: Reviewed,noncontributory to illness, Family hx of heart letty, Family hx of HTN Social History Smoker: Cigarettes, Less Than 1 Pack/Day Alcohol: Denies ETOH Use Drugs: Denies Drug Use Lives In: Home Constitutional: reports: fatigue, weakness; denies: chills, diaphoresis, fever, malaise, sweats, others EENTM: denies: blurred vision, double vision, ear bleeding, ear discharge, ear drainage, ear pain, ear ringing, eye pain, eye redness, hearing loss, mouth pain, mouth swelling, nasal discharge, nose bleeding, nose congestion, nose pain, photophobia, tearing, throat pain, throat swelling, voice changes, others Respiratory: denies: cough, hemoptysis, orthopnea, SOB at rest, shortness of breath, SOB with excertion, stridor, wheezing, others Cardiovascular: denies: chest pain, dizzy spells, diaphoresis, Dyspnea on exertion, edema, irregular heart beat, left arm pain, lightheadedness, palpitations, PND, syncope, others Gastrointestinal: reports: poor appetite; denies: abdomen distended, abdominal pain, blood streaked bowels, constipated, diarrhea, dysphagia, difficulty swallowing, hematemesis, melena, nausea, poor fluid intake, rectal bleeding, rectal pain, vomiting, others Genitourinary: denies: abnormal vagina bleeding, burning, dyspareunia, dysuria, flank pain, frequency, hematuria, incontinence, pain, , vagina discharge, urgency, others Neurological: reports: dizziness, weakness; denies: fainting, headache, left sided numbness, left sided weakness, numbness, paresthesia, pre-existing deficit, right sided numbness, right sided weakness, seizure, speech problems, tingling, tremors, others Musculoskeletal: denies: back pain, gout, joint pain, joint swelling, muscle pain, muscle stiffness, neck pain, others Integumetry: denies: bruises, change in color, change in hair/nails, dryness, laceration, lesions, lumps, rash, wounds, others Allergic/Immunocompromised: denies: Difficulty Healing, Frequent Infections, Hives, Itching, others Hematologic/Lymphatic: denies: anemia, blood clots, easy bleeding, easy bruising, swollen glands, others Endocrine: denies: excessive hunger, excessive sweating, excessive thirst, excessive urination, flushing, intolerance to cold, intolerance to heat, unexplained weight gain, unexplained weight loss, others Psychiatric: reports: depression; denies: anxiety, bipolar disorder, hopeless, panic disorder, schizophrenia, sleepless, suicidal, others Physical Exam General Appearance: Moderate Distress (Patient appears to be in moderate distress at time of evaluation. Patient appears to be in poor overall health.), Normal HEENT: Normal ENT Inspection, Pharynx Normal, TMs Normal Neck: Full Range of Motion, Non-Tender, Normal, Normal Inspection Respiratory: Chest Non-Tender, Lungs Clear, No Accessory Muscle Use, No Respiratory Distress, Normal Breath Sounds Cardiovascular: No Edema, No JVD, No Murmur, No Gallop, Normal Peripheral Pulses, Regular Rate/Rhythm Breast Exam: Deferred Gastrointestinal: Non Tender, No Pulsatile Mass, Normal Bowel Sounds, Soft Genitalia: Deferred Pelvic: Deferred Rectal: Deferred Extremities: Normal capillary refill, No pedal edema, Other (Patient states she can not stand up on her own. Patient states she has bilateral leg weakness.) Musculoskeletal : Apperance: Normal Neurologic: Alert, No Sensory Deficits Cerebellar Function: NOT DONE Reflexes: NOT DONE Skin: Dry, Normal Color, Warm Lymphatic: No Adenopathy Was a procedure done? Was a procedure done?: No Differential Dx Considerations may include: Anemia, electrolyte imbalance, dehydration, sepsis, pneumonia, failure to thrive, fall risk X-Ray, Labs, Meds, VS Vital Signs Date Time Temp Pulse Resp B/P (MAP) Pulse Ox O2 Delivery O2 Flow Rate FiO2 05/28/24 02:59 94 14 95 Room Air* 0 21 05/28/24 02:50 98.2 94 14 120/71 (87) 95 98.2 05/27/24 23:54 98.0 90 24 130/84 (99) 98 Lab Test 05/28/24 00:29 Range/Units White Blood Count 10.1 4.4-10.8 10^3/uL Red Blood Count 4.74 4.0-5.20 10^6/uL Hemoglobin 14.8 12.2-16.2 g/dL Hematocrit 43.5 36.0-46.0 % Mean Corpuscular Volume 91.8 80.0-100.0 fL Mean Corpuscular Hemoglobin 31.2 28.0-32.0 pg Mean Corpuscular Hemoglobin Concent 34.0 32.0-36.0 g/dL Red Cell Distribution Width 13.4 11.8-14.3 % Platelet Count 301 140-450 10^3/uL Mean Platelet Volume 7.7 6.9-10.8 fL Neutrophils (%) (Auto) 79.7 37.0-80.0 % Lymphocytes (%) (Auto) 14.8 10.0-50.0 % Monocytes (%) (Auto) 3.7 0.0-12.0 % Eosinophils (%) (Auto) 1.3 0.0-7.0 % Basophils (%) (Auto) 0.5 0.0-2.0 % Neutrophils # (Auto) 8.0 1.6-8.6 10 ^3/uL Lymphocytes # (Auto) 1.5 0.4-5.4 10 ^3/uL Monocytes # (Auto) 0.4 0-1.3 10 ^3/uL Eosinophils # (Auto) 0.1 0-0.8 10 ^3/uL Basophils # (Auto) 0 0-0.2 10 ^3/uL Nucleated Red Blood Cells 0.0 % Sodium Level 141 136-145 mmol/L Potassium Level 3.0 L 3.5-5.1 mmol/L Chloride Level 106 98-107 mmol/L Carbon Dioxide Level 26 20-31 mmol/L Anion Gap 9 5-15 Blood Urea Nitrogen 12 9-23 mg/dL Creatinine 0.92 0.550-1.02 mg/dL Glomerular Filtration Rate Calc 70 >90 mL/min BUN/Creatinine Ratio 13.0 10.0-20.0 Serum Glucose 140 H 74-106 mg/dL Calcium Level 10.1 8.7-10.4 mg/dL Total Bilirubin 0.7 0.2-1.0 mg/dL Aspartate Amino Transferase (AST) 9 L 13-40 U/L Alanine Aminotransferase (ALT) 16 7-40 U/L Alkaline Phosphatase 87 46-116 U/L B-Type Natriuretic Peptide 7.36 0-100 pg/mL Total Protein 7.4 5.7-8.2 g/dL Albumin 4.8 3.2-4.8 g/dL Current Medications Medications (Trade) Dose Ordered Sig/Octavio Route Start Time Stop Time Status Last Admin Meclizine HCl (Antivert Tablet) 25 mg ONCE ONCE PO 05/28/24 00:30 05/28/24 00:31 DC 05/28/24 02:54 X-Ray, Labs, Meds, VS Comment Several studies were pending at time of this note. Of the studies available, patient reveals a pneumonia with some mild pleural effusion. Additionally, patient was hypokalemic. Due to the patient's fall risk and concerns and what appears to be failure to thrive, patient will be admitted for antibiotics to address her pneumonia as well as possible SNF placement to address her failure to thrive and weakness concerns. Time of 1ST Reevaluation: 03:09 Reevaluation 1ST: Improved Consultation: PCP Patient Education/Counseling: Diagnosis, Treatment Family Education/Counseling: Diagnosis, Treatment, No Family Present Departure 1 Departure Time of Disposition: 03:10 Impression: Primary Impression: Pneumonia Additional Impressions: Pleural effusion Hypokalemia Failure to thrive Risk for falls Disposition: 09 ADMITTED INPATIENT Condition: Fair Discharged With: Self Critical Care Note Critical Care Time?: No Stability Stability form required: No Heart Score Heart Score: Heart Score Response (Comments) Value History N/A 0 EKG N/A 0 Age N/A 0 Risk Factors N/A 0 Troponin N/A 0 Total 0 I personally scribed for PRINCE HILL PAC ([email or web address]) on 05/28/24 at 00:32. Elect ronically submitted by Mickey Fitzgerald ([email or web address]). I personally scribed for PRINCE HILL PAC ([email or web address]) on 05/28/24 at 00:39. E lectronically submitted by Mickey Fitzgerald ([email or web address]). PRINCE HILL PAC May 28, 2024 00:32
[2024-05-28 00:54] LABS: Basophils # (auto) 0 10 ^3/uL (0-0.2); Basophils % (auto) 0.5 % (0.0-2.0); Eosinophils # (auto) 0.1 10 ^3/uL (0-0.8); Eosinophils % (auto) 1.3 % (0.0-7.0); Hematocrit 43.5 % (36.0-46.0); Hemoglobin 14.8 g/dL (12.2-16.2); Lymphocytes # (auto) 1.5 10 ^3/uL (0.4-5.4); Lymphocytes % (auto) 14.8 % (10.0-50.0); Mean Corpuscular Hemoglobin 31.2 pg (28.0-32.0); Mean Corpuscular Volume 91.8 fL (80.0-100.0); Monocytes # (auto) 0.4 10 ^3/uL (0-1.3); Monocytes % (auto) 3.7 % (0.0-12.0); Neutrophils % (auto) 79.7 % (37.0-80.0); Platelet Count (auto) 301 10^3/uL (140-450); Red Blood Cells 4.74 10^6/uL (4.0-5.20); Red Cell Distribution Width 13.4 % (11.8-14.3); White Blood Cell 10.1 10^3/uL (4.4-10.8)
[2024-05-28 01:07] LABS: Alanine Aminotransferase 16 U/L (7-40); Alkaline Phosphatase 87 U/L (46-116); Anion Gap 9 (5-15); Blood Urea Nitrogen 12 mg/dL (9-23); Calcium 10.1 mg/dL (8.7-10.4); Carbon Dioxide 26 mmol/L (20-31); Chloride 106 mmol/L (98-107); Sodium 141 mmol/L (136-145)
[2024-05-28 01:08] LABS: Bilirubin, Total 0.7 mg/dL (0.2-1.0); Total Protein 7.4 g/dL (5.7-8.2)
[2024-05-28 01:25] LABS: Albumin 4.8 g/dL (3.2-4.8); Aspartate Aminotransferase 9 U/L (13-40); Glucose 140 mg/dL (74-106)
--- NOTE | 2024-05-28 01:41 | DVH ---
CHEST RADIOGRAPH Indication: Shortness of breath Technique: Single frontal view of the chest was obtained COMPARISON: XY CHEST PORTABLE on DOS: 04/25/24 FINDINGS: Lines and Tubes: None Lungs: Left basilar opacity may reflect atelectasis or mild pneumonia. Pleura: Small left pleural effusion. No pneumothorax. Cardiomediastinal contours: Unremarkable Bones: Unremarkable IMPRESSION: 1. Left basilar opacity may reflect atelectasis or mild pneumonia. 2. Small left pleural effusion
[2024-05-28] MEDS: MECLIZINE HCL 25 MG TAB PO ONE (02:54)
[2024-05-28] MEDS: POTASSIUM EFFERVESENT TAB 25 MEQ PO ONE (03:50)
[2024-05-28] MEDS: AZITHROMYCIN 500MG/ 250ML 250 ML IV ONE (03:51)
--- NOTE | 2024-05-28 05:40 | DVH ---
EXAM: CT HEAD WITHOUT CONTRAST INDICATION: dizziness TECHNIQUE: CT of the head without intravenous contrast. Radiation Dose Information: CT Dose: CTDI volume is 25 mGy. Dose-length product is 250 mGy*cm The dose indicators for CT are the volume Computed Tomography (CT) Dose Index (CTDIvol) and the Dose Length Product (DLP), and are measured in units of mGy and mGy-cm, respectively. These indicators are not patient dose, but values generated from the CT scanner acquisition factors. The report includes radiation exposure data for exposures received during this examination. COMPARISON: HEAD WITHOUT CONTRAST on DOS: 06/01/19 FINDINGS: There is no evidence of acute intracranial hemorrhage, extra-axial collection, mass effect, midline s hift, herniation or hydrocephalus. The ventricles, sulci and cisterns are age appropriate. The green-white differentiation is intact. Patchy periventricular and subcortical white matter hypoattenuation is nonspecific but may be related to small vessel ischemic disease. The visualized paranasal sinuses and mastoid air cells are clear. The surrounding soft tissues and osseous structures are unremarkable. IMPRESSION: No acute intracranial abnormality.
[2024-05-28 05:42] LABS: COVID19 ANTIGEN SOFIA FIA NEGATIVE (NEGATIVE)
[2024-05-28 05:44] LABS: Rapid Influenza A Negative (Negative); Rapid Influenza B Negative (Negative)
[2024-05-28 05:54] LABS: Urine Bacteria None Seen /hpf (None Seen)
[2024-05-28] MEDS ORDERED: ACETAMINOPHEN 325 MG TAB PO PRN (06:00)
[2024-05-28] MEDS ORDERED: ONDANSETRON HCL 4 MG/2 ML VIAL IV PRN (06:00)
--- NOTE | 2024-05-28 06:09 | DVHHP2 ---
Admitting Diagnosis: Pneumonia, Failure to thrive History of Present Illness History Source: Patient Exam Limitations: No limitations HPI Mrs. Marion Morris is a 64-year-old female with a history of CKF, Depression, anxiety, HTN, seizures who presents with a chief complaint of generalized weakness.. Patient states she has been unable to eat for the past 3 days reports poor appetite. Since then patient has been feeling generally weak, has been having difficulty standing up and ambulating, feeling dizzy with loss of balance. Patient reports she has been feeling depressed and anxious denies any suicidal ideations. Patient reports she does not take any anti depression medications only antiseizures and has been compliant with her home medication. Patient reports she lives with some roommates. Patient denies chest pain , nausea, vomiting, abdominal pain, constipation, diarrhea. Patient admitted for further evaluation. Home Meds Active Scripts Albuterol Sulfate (Proair Respiclick) 108 Mcg/Act Aer, 108 MCG IN Q4HP PRN, #1 AER Prov:REILLY ALVAREZ MD 04/25/24 Benzonatate (Benzonatate) 200 Mg Cap, 1 CAP PO TID, #30 CAP Prov:REILLY ALVAREZ MD 04/25/24 Hydrocodone-Acetaminophen (Hydrocodone Bitartrate/AC 10-325 mg) 1 Tab Tab, 1 TAB PO BID, #10 TAB Prov:MARGE GARSIA 01/20/24 Cephalexin Monohydrate (Cephalexin) 500 Mg Cap, 1 CAP PO TID for 3 Days, #9 CAP Prov:SHWETHA ANDREA MD 01/02/24 Phenazopyridine HCl (Phenazopyridine Hydrochlo) 200 Mg Tab, 200 MG PO TID for 2 Days, #6 TAB 0 Refills Prov:MYRA GARCIA NP 11/09/23 Nitrofurantoin Monohydrate Mac (Macrobid) 100 Mg Cap, 100 MG PO BID for 7 Days, #14 CAP 0 Refills Prov:MYRA GARCIA NP 11/09/23 Promethazine-Dm (Promethazine Dm 6.25-15 mg/5Ml) 1 Alexa Alexa, 5 ML PO TID, #180 ML Prov:MARGE GARSIA 09/10/23 Albuterol Sulfate (Albuterol Sulfate Hfa) 108 Mcg/Act Aer, 108 MCG IN TID, #90 AER Prov:SUNLIDYAPrecious POTTS 09/10/23 Prednisone (Prednisone) 20 Mg Tab, 60 MG PO DAILY, #15 TAB Prov:SUN,LIDYAPrecious POTTS 09/04/23 Benzonatate (Benzonatate) 200 Mg Cap, 1 CAP PO TIDP, #30 CAP Prov:SUNMARTHAPAUL POTTS 09/04/23 Azithromycin (Azithromycin) 500 Mg Tab, 1 TAB PO DAILY, #5 TAB Prov:SUNMARTHAPAUL POTTS 09/04/23 Acetaminophen (Acetaminophen) 500 Mg Tab, 500 MG PO TIDPRN PRN for 10 Days, #30 TAB 0 Refills Prov:MYRA GARCIA [employer] 07/26/23 Pseudoephedrine (Sudafed 12 Hour) 120 Mg Tab, 1 TAB PO BID for 10 Days, #20 TAB 0 Refills Prov:MYRA GARCIA [employer] 07/26/23 Amoxicillin & Pot Clavulanate (AUGMENTIN TABLET) 875 Mg Tb, 875 MG PO BID for 7 Days, #14 TAB 0 Refills Prov:MYRA GARCIA [employer] 07/26/23 Nitrofurantoin Monohydrate Mac (Macrobid) 100 Mg Cap, 100 MG PO Q12HR, #13 CAP Prov:STAR ALVARADO MD 05/12/17 Reported Medications Memantine Hydrochloride (Memantine HCl) 5 Mg Tab, 5 MG PO BID, TAB 01/01/24 Meclizine Hcl (Meclizine Hcl) 12.5 Mg Tab, 12.5 MG PO BIDP PRN for DIZZINESS for 30 Days, MG 01/01/24 Lisinopril (Lisinopril) 10 Mg Tab, 10 MG PO DAILY for 30 Days, MG 01/01/24 Lacosamide (Vimpat) 10 Mg/Ml Alexa, 10 MG PO BID, ML 01/01/24 Lamotrigine (Lamictal) 200 Mg Tab, 200 MG PO BID, TAB 01/01/24 Levetiracetam (KEPPRA TABLET) 500 Mg Tb, 500 MG PO BID, TAB 01/01/24 Phenazopyridine Hcl (EQ URINARY PAIN RELIEF) 95 Mg Tab, 95 MG OR BID, TAB 01/01/24 Nortriptyline Hcl (PAMELOR CAPSULE) 25 Mg Cp, 10 MG PO BID, #30 CAP 12/27/17 Fenofibrate (FENOFIBRATE) 145 Mg Tab, 1 TAB PO DAILY, #30 TAB 5 Refills 05/12/17 Alprazolam (Xanax) 1 Mg Tab, 1 TAB PO TID, #90 TAB 05/12/17 Levetiracetam (Keppra) 500 Mg Tab, 1000 MG PO BID for 30 Days, MG 05/11/17 [Alprazolam2 Mg] (Alprazolam) 2 MG TAB No Conflict Check, 2 MG PO BID, 0 Refills 01/10/13 Lamotrigine (Lamotrigine) 200 Mg Tab, 200 MG PO BID 03/16/12 Lacosamide (Vimpat) 100 Mg Tab, 100 MG PO BID 03/16/12 Past Medical History Cardiac: HTN, Hyperlipidemia Pulmonary: No pertinent Hx Central Nervous System: Seizure GI: No pertinent Hx Hemotology/Oncology: No pertinent Hx Hepatobiliary: No pertinent Hx Psychiatric: Anxiety, Depression Musculoskeletal: No pertinent Hx Rheumotologic: No pertinent Hx Infectious Disease: No peritnent Hx ENT: No pertinent Hx Renal/: No pertinent Hx Endocrine: No pertinent Hx Dermatology: No pertinent Hx Patient Family History: Cerebrovascular accident (CVA) G8 FATHER FH: myocardial infarction G8 FATHER Family history: Cardiovascular disease G8 FATHER Smoker: No Hx (Negative) Alocohol: None Drugs: None Lives with: Roommate Domestic Violence: Neg Review of Systems Constitutional: Weakness, Other (poor appetite , dizziness, ) All Other Systems depression, anxiety H&P Exam Vital Signs Vital Signs Date Time Temp Pulse Resp B/P (MAP) Pulse Ox O2 Delivery O2 Flow Rate FiO2 05/28/24 02:59 94 14 95 Room Air* 0 21 05/28/24 02:50 98.2 120/71 (87) 98.2 General Appeara: Well developed, Other (flat affect) Head Exam: Normal inspection Neck Exam: Normal inspection, Non-tender, Normal alignment Eye Exam: bilateral eye Normal inspection, bilateral eye PERRL, bilateral eye EOMI Ear Exam: bilateral ear Auricle normal Nasal Exam: Normal inspection Mouth: Normal Inspection Pulmonary/Respiratory: Normal inspection, Normal breath sounds, Chest non- tender, Lungs clear Cardiovascular/Chest: Normal inspection, Regular rate, Normal Rhythm Peripheral Pulses: 2+ dorsalis pedis (R), 2+ dorsalis pedis (L), 2+ Radial (R), 2+ Radial (L) Abdominal Exam: Normal bowel sounds, Soft, No tenderness Rectal Exam: Deferred Back Exam: Normal inspection Pelvic 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: 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 Exam: Normal hearing, Normal speech, PERRL Neuro/Mental St: Alert, Oriented, Depressed affect Appearance: Appropriate appearance, Appropriate insight Eye contact/ Speech: Cooperative, Normal speech, Avoids eye contact Thoughts/Psych: Normal thought pattern Skin Exam: Normal inspection, Normal color, Warm/dry Labs/Xrays Labs Test 05/28/24 04:32 05/28/24 00:29 05/28/24 00:18 Range/Units Influenza Type A Antigen Negative Negative Influenza Type B Antigen Negative Negative SARS-CoV-2 Antigen (Rapid) Negative NEGATIVE White Blood Count 10.1 4.4-10.8 10^3/uL Red Blood Count 4.74 4.0-5.20 10^6/uL Hemoglobin 14.8 12.2-16.2 g/dL Hematocrit 43.5 36.0-46.0 % Mean Corpuscular Volume 91.8 80.0-100.0 fL Mean Corpuscular Hemoglobin 31.2 28.0-32.0 pg Mean Corpuscular Hemoglobin Concent 34.0 32.0-36.0 g/dL Red Cell Distribution Width 13.4 11.8-14.3 % Platelet Count 301 140-450 10^3/uL Mean Platelet Volume 7.7 6.9-10.8 fL Neutrophils (%) (Auto) 79.7 37.0-80.0 % Lymphocytes (%) (Auto) 14.8 10.0-50.0 % Monocytes (%) (Auto) 3.7 0.0-12.0 % Eosinophils (%) (Auto) 1.3 0.0-7.0 % Basophils (%) (Auto) 0.5 0.0-2.0 % Neutrophils # (Auto) 8.0 1.6-8.6 10 ^3/uL Lymphocytes # (Auto) 1.5 0.4-5.4 10 ^3/uL Monocytes # (Auto) 0.4 0-1.3 10 ^3/uL Eosinophils # (Auto) 0.1 0-0.8 10 ^3/uL Basophils # (Auto) 0 0-0.2 10 ^3/uL Nucleated Red Blood Cells 0.0 % Sodium Level 141 136-145 mmol/L Potassium Level 3.0 L 3.5-5.1 mmol/L Chloride Level 106 98-107 mmol/L Carbon Dioxide Level 26 20-31 mmol/L Anion Gap 9 5-15 Blood Urea Nitrogen 12 9-23 mg/dL Creatinine 0.92 0.550-1.02 mg/dL Glomerular Filtration Rate Calc 70 >90 mL/min BUN/Creatinine Ratio 13.0 10.0-20.0 Serum Glucose 140 H 74-106 mg/dL Calcium Level 10.1 8.7-10.4 mg/dL Total Bilirubin 0.7 0.2-1.0 mg/dL Aspartate Amino Transferase (AST) 9 L 13-40 U/L Alanine Aminotransferase (ALT) 16 7-40 U/L Alkaline Phosphatase 87 46-116 U/L B-Type Natriuretic Peptide 7.36 0-100 pg/mL Total Protein 7.4 5.7-8.2 g/dL Albumin 4.8 3.2-4.8 g/dL Assessment/Plan Problem List: (1) Pneumonia (2) Failure to thrive (3) Hypokalemia Plan This is a 64 yo female with a history of CKF, Hyperlipidemia, hypertension, se izures, anxiety, depression who presents with poor appetite , generalized weakness, dizziness 1. Pneumonia 2. Failure to thrive 3. Depression 4. Acute Hypokalemia Plan Admit Telemetry Tele med psych consultation Social service consultation Dietary consultation IV antibiotic Duo Neb Treatments 2D echocardiogram Monitor electrolytes replenish as needed PT evaluation Discussed all above with patient who verbalizes agreement and understanding of care plan. All questions were answered. Discussed assessment and care plan with supervising MD. Plan discussed with: Patient, Other Code Visit Code Visit Total Time (mins): 45 Additional Comments Additional Comments Additional Comments Patient's chart is reviewed and discussed with the nurse practitioner. I agree with the nurse practitioner's evaluation, documentation, assessment and care plan as outlined. EZEKIEL MARIE May 28, 2024 06:09 MARCIO LOPEZ MD May 28, 2024 16:53
[2024-05-28 06:36] LABS: Urine Blood Negative /uL (Negative); Urine Clarity Turbid (Clear); Urine Color Yellow (Yellow); Urine Hyaline Cast FEW /lpf (0 - 2); Urine Mucus FEW (None Seen); Urine Protein, UAD 1+ (Negative); Urine Specific Gravity 1.035 (1.001-1.035); Urine Squamous Epithelial Cell FEW /hpf (<5); Urine Urobilinogen 2 mg/dL (Negative); Urine WBC 14 /hpf (0 - 5)
[2024-05-28 06:40] LABS: Barbiturate Scree,Urine Neg (NEGATIVE)
[2024-05-28 07:00] LABS: Amphetamine Screen, Urine Neg (NEGATIVE); Benzodiazephine Screen, Urine Neg (NEGATIVE); Cannabinoid Screen, Urine Neg (NEGATIVE); Cocaine Screen, Urine Neg (NEGATIVE); Opiate Scree,Urine Pos (NEGATIVE); Phencyclidine Screen, Urine Neg (NEGATIVE)
[2024-05-28] MEDS: IPRATROPIUM BROM 0.5 MG/2.5ML INH SOL NEB SCH (08:27)
[2024-05-28] MEDS: levoFLOXacin 500MG 100 ML IV SCH (10:00)
[2024-05-28] MEDS: ENOXAPARIN SOD 40 MG/0.4 ML SYRINGE SC SCH (10:16)
[2024-05-28] MEDS ORDERED: POTASSIUM CHLORIDE 20 MEQ, LIDOCAINE 1% (LOCAL ANESTH.) 2 ML in SODIUM CHL 0.9% 100 ML IV ONE (17:00)
[2024-05-28] MEDS: Ensure Enlive Strawberry 8oz Bottle PO SCH (18:20)
[2024-05-28] MEDS: MEMANTINE HCL 5 MG TAB PO SCH (21:22)
[2024-05-28] MEDS: NORTRIPTYLINE HCL 10 MG CAP PO SCH (21:22)
[2024-05-28] MEDS: levETIRAcetam 500 MG TAB PO SCH (21:22)
[2024-05-28] MEDS ORDERED: MECLIZINE HCL 25 MG TAB PO PRN (23:15)
[2024-05-28 23:40] LABS: Chloride 106 mmol/L (98-107); Potassium 3.5 mmol/L (3.5-5.1); Sodium 142 mmol/L (136-145)
[2024-05-28 23:41] LABS: Anion Gap 5 (5-15); Calcium 10.2 mg/dL (8.7-10.4); Carbon Dioxide 31 mmol/L (20-31)
[2024-05-28 23:46] LABS: BUN/Creatinine Ratio 16.5 (10.0-20.0); Blood Urea Nitrogen 15 mg/dL (9-23); Glucose 106 mg/dL (74-106)
[2024-05-29] VITALS (9 sets, daily range): BP systolic 67–141; BP diastolic 53–79; PULSE 68–118; RESP 16–19; TEMP 97.6–98.3; O2SAT 92–99
[2024-05-29 07:47] LABS: Basophils # (auto) 0 10 ^3/uL (0-0.2); Basophils % (auto) 0.7 % (0.0-2.0); Chloride 106 mmol/L (98-107); Eosinophils # (auto) 0.3 10 ^3/uL (0-0.8); Eosinophils % (auto) 3.9 % (0.0-7.0); Hematocrit 39.7 % (36.0-46.0); Hemoglobin 13.7 g/dL (12.2-16.2); Lymphocytes # (auto) 2.1 10 ^3/uL (0.4-5.4); Lymphocytes % (auto) 31.1 % (10.0-50.0); Mean Corpuscular Hemoglobin 31.8 pg (28.0-32.0); Mean Corpuscular Hgb Conc. 34.6 g/dL (32.0-36.0); Mean Corpuscular Volume 91.8 fL (80.0-100.0); Monocytes # (auto) 0.4 10 ^3/uL (0-1.3); Monocytes % (auto) 6.7 % (0.0-12.0); Neutrophils # (auto) 3.8 10 ^3/uL (1.6-8.6); Neutrophils % (auto) 57.6 % (37.0-80.0); Nucleated Red Blood Cells % 0.1 %; Platelet Count (auto) 257 10^3/uL (140-450); Red Blood Cells 4.32 10^6/uL (4.0-5.20); Red Cell Distribution Width 13.3 % (11.8-14.3); Sodium 141 mmol/L (136-145); White Blood Cell 6.7 10^3/uL (4.4-10.8)
[2024-05-29 07:48] LABS: Anion Gap 8 (5-15); Calcium 9.6 mg/dL (8.7-10.4); Carbon Dioxide 27 mmol/L (20-31); Potassium 3.4 mmol/L (3.5-5.1)
[2024-05-29 07:53] LABS: BUN/Creatinine Ratio 10.7 (10.0-20.0); Glucose 94 mg/dL (74-106)
[2024-05-29 07:54] LABS: Blood Urea Nitrogen 9 mg/dL (9-23); Magnesium 2.1 mg/dL (1.6-2.6)
--- NOTE | 2024-05-29 09:58 | DVHINCON2 ---
Date of Service if different f: May 29, 2024 Time of Service: 09:21 Consultation ([facility]) Consulting Physician: LIAM LEVI MD Labs Laboratory Tests Test 05/28/24 00:18 05/28/24 00:29 05/28/24 04:32 05/28/24 05:52 Urine Color Yellow (Yellow) Urine Clarity Turbid (Clear) Urine pH 6.0 (5.0-9.0) Urine Specific Ullin 1.035 (1.001-1.035) Urine Protein 1+ (Negative) Urine Ketones Trace (Negative) Urine Blood Negative /uL (Negative) Urine Nitrite Negative (Negative) Urine Bilirubin Negative (Negative) Urine Urobilinogen 2 mg/dL (Negative) Urine Leukocyte Esterase 2+ /uL (Negative) Urine RBC 1 /hpf (0 - 4) Urine WBC 14 /hpf (0 - 5) Urine Squamous Epithelial Cells Few /hpf (<5) Urine Bacteria None seen /hpf (None Seen) Urine Hyaline Casts Few /lpf (0 - 2) Urine Mucus Few (None Seen) Urine Glucose Normal mg/dL (Normal) Total Bilirubin 0.7 mg/dL (0.2-1.0) Aspartate Amino Transf (AST/SGOT) 9 U/L (13-40) Alanine Aminotransferase (ALT/SGPT) 16 U/L (7-40) Alkaline Phosphatase 87 U/L (46-116) B-Type Natriuretic Peptide 7.36 pg/mL (0-100) Total Protein 7.4 g/dL (5.7-8.2) Albumin 4.8 g/dL (3.2-4.8) Influenza Type A Antigen Negative (Negative) Influenza Type B Antigen Negative (Negative) SARS-CoV-2 Antigen (Rapid) Negative (NEGATIVE) Urine Opiates Screen Pos (NEGATIVE) Urine Fentanyl Screen Neg (NEGATIVE) Urine Barbiturates Screen Neg (NEGATIVE) Urine Phencyclidine Screen Neg (NEGATIVE) Urine Amphetamines Screen Neg (NEGATIVE) Urine Benzodiazepines Screen Neg (NEGATIVE) Urine Cocaine Screen Neg (NEGATIVE) Urine Cannabinoids Screen Neg (NEGATIVE) Test 05/29/24 06:44 White Blood Count 6.7 10^3/uL (4.4-10.8) Red Blood Count 4.32 10^6/uL (4.0-5.20) Hemoglobin 13.7 g/dL (12.2-16.2) Hematocrit 39.7 % (36.0-46.0) Mean Corpuscular Volume 91.8 fL (80.0-100.0) Mean Corpuscular Hemoglobin 31.8 pg (28.0-32.0) Mean Corpuscular Hemoglobin Concent 34.6 g/dL (32.0-36.0) Red Cell Distribution Width 13.3 % (11.8-14.3) Platelet Count 257 10^3/uL (140-450) Mean Platelet Volume 7.9 fL (6.9-10.8) Neutrophils (%) (Auto) 57.6 % (37.0-80.0) Lymphocytes (%) (Auto) 31.1 % (10.0-50.0) Monocytes (%) (Auto) 6.7 % (0.0-12.0) Eosinophils (%) (Auto) 3.9 % (0.0-7.0) Basophils (%) (Auto) 0.7 % (0.0-2.0) Neutrophils # (Auto) 3.8 10 ^3/uL (1.6-8.6) Lymphocytes # (Auto) 2.1 10 ^3/uL (0.4-5.4) Monocytes # (Auto) 0.4 10 ^3/uL (0-1.3) Eosinophils # (Auto) 0.3 10 ^3/uL (0-0.8) Basophils # (Auto) 0 10 ^3/uL (0-0.2) Nucleated Red Blood Cells 0.1 % Sodium Level 141 mmol/L (136-145) Potassium Level 3.4 mmol/L (3.5-5.1) Chloride Level 106 mmol/L (98-107) Carbon Dioxide Level 27 mmol/L (20-31) Anion Gap 8 (5-15) Blood Urea Nitrogen 9 mg/dL (9-23) Creatinine 0.84 mg/dL (0.550-1.02) Glomerular Filtration Rate Calc 79 mL/min (>90) BUN/Creatinine Ratio 10.7 (10.0-20.0) Serum Glucose 94 mg/dL (74-106) Calcium Level 9.6 mg/dL (8.7-10.4) Magnesium Level 2.1 mg/dL (1.6-2.6) Appearance: Stated age Psychomotor activity: WNL, Calm Behavioral: Cooperative Eye contact: Appropriate Speech: WNL Affect: Appropriate, Mood Congruent Mood: Euthymic Thought processes: Linear/Goal-directed Thought content: WNL Suicidal ideations: Absent Homicidal ideations: Absent Orientation: Person, Place, Time, Situation Memory intact: Recent Intellect: Average Abstractability: WNL Concentration: Adequate Attention: Adequate Judgement: WNL Insight: Good Vitals Vital Signs Date Time Temp Pulse Resp B/P (MAP) Pulse Ox O2 Delivery O2 Flow Rate FiO2 05/29/24 08:00 97.6 78 18 126/67 (86) 92 97.6 05/29/24 07:51 Room Air 0.0 05/29/24 07:51 21 Current medications Current Medications Medications Dose Ordered Sig/Octavio Route Start Time Stop Time Status Last Admin Dose Admin Levofloxacin/ Dextrose 100 ml @ 100 mls/hr DAILY IV 05/28/24 10:00 Ondansetron HCl 4 mg Q6HPRN PRN IV 05/28/24 06:00 Enoxaparin Sodium 40 mg DAILY SC 05/28/24 10:00 05/28/24 10:16 40 MG Acetaminophen 650 mg Q6HPRN PRN PO 05/28/24 06:00 Ipratropium [place] 0.5 mg Q6HWA NEB 05/28/24 06:00 05/29/24 07:51 0.5 MG Enteral Nutritional Formula 240 ml BIDWM PO 05/28/24 18:00 05/28/24 18:20 240 ML Levetiracetam 1,000 mg BID PO 05/28/24 22:00 05/28/24 21:22 1,000 MG Memantine 5 mg BID PO 05/28/24 22:00 05/28/24 21:22 5 MG Nortriptyline HCl 10 mg BID PO 05/28/24 22:00 05/28/24 21:22 10 MG Meclizine HCl 25 mg Q8HPRN PRN PO 05/28/24 23:15 Treatment plan discussed: With staff Medication adjusted: No Labs ordered: No Psychotherapy provided: No Type: Voluntary History of Present Illness Reason for Consult: psychiatric evaluation PER H&P: Mrs. Marion Morris is a 64-year-old female with a history of CKF, Depression, anxiety, HTN, seizures who presents with a chief complaint of generalized weakness.. Patient states she has been unable to eat for the past 3 days reports poor appetite. Since then patient has been feeling generally weak, has been having difficulty standing up and ambulating, feeling dizzy with loss of balance. Patient reports she has been feeling depressed and anxious denies any suicidal ideations. Patient reports she does not take any anti depression medications only antiseizures and has been compliant with her home medication. Patient reports she lives with some roommates. Patient denies chest pain , nausea, vomiting, abdominal pain, constipation, diarrhea. Patient admitted for further evaluation. PSYCHIATRIST HPI: The patient was seen and evaluated at [facility] via telepsychiatry platform. 64yr old female was admitted 05/28 for generalized weakness and is being treated for pneumonia, failure to thrive and dizziness. She reported that she is doing good today and said her team told her she has pnuemonia. She stated she had difficulty walking and with balance. She reported she has not been treated for mental illness in the past. She noted she has had a seizure disorder for the past twenty years and takes Keppra, Lamictal and Vimpat for it. She noted she last had a seizure about two weeks ago and has periodic seizures perhaps a couple times a year. She reported she has some short term memory issues and her children sometimes ask her why she forgets things. She had been prescribed Namenda (memantine) and she thinks she has poor memory. She denied having word finding difficulty or losing things. She reported she has poor hearing and doesn't have her hearing aids at the hospital which makes it more challenging for her. When asked for today's date, she said it was May 28, 2024 and Wednesday. She stated she was at "[facility]" and was able to identify a watch and pen. She denied having symptoms of anxiety, depression, psychosis, substance use and mood disorders. She reported she sleeps well and normally has positive mood, but feels it has been down the last few days due to feeling dizzy and having poor appetite. She denied having SI/HI/AVH. Past Psychiatric History : No past hospitalizations or suicide attempts. Current medications: Namenda, Keppra, Lamictal 200mg BID, Lisinopril Past Medical History : Seizure disorder for past twenty years, hearing aids Substance Use: Reported infrequent alcohol use. Denied other drug use. Social History : Lives in [place] with three roommates. 20 years. Has 7 children. DIAGNOSIS: Rule Out Mild Cognitive Impairment Formulation: This 64 yr old female does not appear to suffer from neurocognitive disorder but could have some mild cognitive impairment. Having hearing decline can contribute to cognitive impairment so recommend she wear her hearing aids and if there is concern for MCI or NCD, I would recommend a neurology consult. She does not appear to suffer from depression or anxiety, but likely has some weakness, depressed mood, poor appetite due to he pneumonia, so treating that should return her mood to baseline. Plan: 1. Safety. The patient is a low risk for suicide and may be managed as an outpatient. 2. Legal-voluntary. 3. Medications: no changes recommended. If cognitive impairment is a concern, I recommend referral to neurology or to neuropsychology. 4. Case discussed with NADINE Otto. 5. Please recontact psychiatry for further follow up or reevaluation. Assessment/Diagnosis/Plan Reviewed: Labs, Medications, Previous Orders LIAM LEVI MD May 29, 2024 09:14
--- NOTE | 2024-05-29 13:13 | DVHDS2 ---
Discharge Summary Date of Admission May 28, 2024 at 05:52 Date of Discharge: May 29, 2024 Labs/Diagnostic Data: Laboratory Results Test 05/29/24 06:44 05/28/24 05:52 05/28/24 04:32 05/28/24 00:29 White Blood Count 6.7 10^3/uL (4.4-10.8) Red Blood Count 4.32 10^6/uL (4.0-5.20) Hemoglobin 13.7 g/dL (12.2-16.2) Hematocrit 39.7 % (36.0-46.0) Mean Corpuscular Volume 91.8 fL (80.0-100.0) Mean Corpuscular Hemoglobin 31.8 pg (28.0-32.0) Mean Corpuscular Hemoglobin Concent 34.6 g/dL (32.0-36.0) Red Cell Distribution Width 13.3 % (11.8-14.3) Platelet Count 257 10^3/uL (140-450) Mean Platelet Volume 7.9 fL (6.9-10.8) Neutrophils (%) (Auto) 57.6 % (37.0-80.0) Lymphocytes (%) (Auto) 31.1 % (10.0-50.0) Monocytes (%) (Auto) 6.7 % (0.0-12.0) Eosinophils (%) (Auto) 3.9 % (0.0-7.0) Basophils (%) (Auto) 0.7 % (0.0-2.0) Neutrophils # (Auto) 3.8 10 ^3/uL (1.6-8.6) Lymphocytes # (Auto) 2.1 10 ^3/uL (0.4-5.4) Monocytes # (Auto) 0.4 10 ^3/uL (0-1.3) Eosinophils # (Auto) 0.3 10 ^3/uL (0-0.8) Basophils # (Auto) 0 10 ^3/uL (0-0.2) Nucleated Red Blood Cells 0.1 % Sodium Level 141 mmol/L (136-145) Potassium Level 3.4 mmol/L (3.5-5.1) Chloride Level 106 mmol/L (98-107) Carbon Dioxide Level 27 mmol/L (20-31) Anion Gap 8 (5-15) Blood Urea Nitrogen 9 mg/dL (9-23) Creatinine 0.84 mg/dL (0.550-1.02) Glomerular Filtration Rate Calc 79 mL/min (>90) BUN/Creatinine Ratio 10.7 (10.0-20.0) Serum Glucose 94 mg/dL (74-106) Calcium Level 9.6 mg/dL (8.7-10.4) Magnesium Level 2.1 mg/dL (1.6-2.6) Urine Opiates Screen Pos (NEGATIVE) Urine Fentanyl Screen Neg (NEGATIVE) Urine Barbiturates Screen Neg (NEGATIVE) Urine Phencyclidine Screen Neg (NEGATIVE) Urine Amphetamines Screen Neg (NEGATIVE) Urine Benzodiazepines Screen Neg (NEGATIVE) Urine Cocaine Screen Neg (NEGATIVE) Urine Cannabinoids Screen Neg (NEGATIVE) Influenza Type A Antigen Negative (Negative) Influenza Type B Antigen Negative (Negative) SARS-CoV-2 Antigen (Rapid) Negative (NEGATIVE) Total Bilirubin 0.7 mg/dL (0.2-1.0) Aspartate Amino Transferase (AST) 9 U/L (13-40) Alanine Aminotransferase (ALT) 16 U/L (7-40) Alkaline Phosphatase 87 U/L (46-116) B-Type Natriuretic Peptide 7.36 pg/mL (0-100) Total Protein 7.4 g/dL (5.7-8.2) Albumin 4.8 g/dL (3.2-4.8) Test 05/28/24 00:18 Urine Color Yellow (Yellow) Urine Clarity Turbid (Clear) Urine pH 6.0 (5.0-9.0) Urine Specific [place] 1.035 (1.001-1.035) Urine Protein 1+ (Negative) Urine Ketones Trace (Negative) Urine Blood Negative /uL (Negative) Urine Nitrite Negative (Negative) Urine Bilirubin Negative (Negative) Urine Urobilinogen 2 mg/dL (Negative) Urine Leukocyte Esterase 2+ /uL (Negative) Urine RBC 1 /hpf (0 - 4) Urine WBC 14 /hpf (0 - 5) Urine Squamous Epithelial Cells Few /hpf (<5) Urine Bacteria None seen /hpf (None Seen) Urine Hyaline Casts Few /lpf (0 - 2) Urine Mucus Few (None Seen) Urine Glucose Normal mg/dL (Normal) Other Laboratory Tests 05/29/24 06:44 Brief Hx & Hospital Course: Mrs. Marion Morris is a 64-year-old female with a history of CKF, Depression, anxiety, HTN, seizures who presents with a chief complaint of generalized weakness.. Patient states she has been unable to eat for the past 3 days reports poor appetite. Since then patient has been feeling generally weak, has been having difficulty standing up and ambulating, feeling dizzy with loss of balance. Patient reports she has been feeling depressed and anxious denies any suicidal ideations. Patient reports she does not take any anti depression medications only antiseizures and has been compliant with her home medication. Patient reports she lives with some roommates. Patient denies chest pain , nausea, vomiting, abdominal pain, constipation, diarrhea. Patient admitted for further evaluation. She is admitted and underwent psychiatric eval for her chronic medical problems. Patient clinically remained stable in the hospital. Her workup in the hospital is normal. Patient given the weakness home health for safety evaluation is being arranged for home. Patient is resumed on her home medications and supportive care and treatment is done. Given her workup and evaluations is normal it is felt she can be safely discharged back home. Patient is advised to continue the medications and follow up with primary care physician. Patient verbalized understanding over hospital diagnosis, treatment she received, discharge medications, discharge instructions and agree with the discharge follow-up plan of care. Consults/Reason for consult DIAGNOSIS: Rule Out Mild Cognitive Impairment Formulation: This 64 yr old female does not appear to suffer from neurocognitive disorder but could have some mild cognitive impairment. Having hearing decline can contribute to cognitive impairment so recommend she wear her hearing aids and if there is concern for MCI or NCD, I would recommend a neurology consult. She does not appear to suffer from depression or anxiety, but likely has some weakness, depressed mood, poor appetite due to he pneumonia, so treating that should return her mood to baseline. Plan: 1. Safety. The patient is a low risk for suicide and may be managed as an outpatient. 2. Legal-voluntary. 3. Medications: no changes recommended. If cognitive impairment is a concern, I recommend referral to neurology or to neuropsychology. 4. Case discussed with NADINE Otto. 5. Please recontact psychiatry for further follow up or reevaluation. Assessment/Diagnosis/Plan Reviewed: Labs, Medications, Previous Orders LIAM LEVI MD May 29, 2024 09:14 Operations or Procedures Conclusion The study is technically limited. Normal left ventricular size and systolic function. Ejection fraction is estimated at 60%. Mild concentric left ventricular hypertrophy. Normal right ventricular size and systolic function. Thickening and calcification of the anterior mitral valve leaflet. No hemodynamically significant valvular disease. PA systolic pressure is not adequately estimated. SIGNED BY: МАРИЯ SAENZ MD SIGNED DATE/TIME: 05/30/24 0805 Condition at Discharge: Stable Final Diagnosis/Problems List Generalized weakness Discharge Disposition: Home with Health Services Discharge Instruct/Medications Diet: Consistent carbohydrate, Cardiac 2g Na,low cholest Activity: No Restrictions, As Tolerated Activity comment: Fall precautions Follow Up/Referral: Primary care physician two weeks Medications: Home medications for discharge med list Continued Medications: Acetaminophen (Acetaminophen) 500 Mg Tab 500 MG PO TIDPRN PRN for 10 Days, #30 TAB 0 Refills Albuterol Sulfate (Albuterol Sulfate Hfa) 108 Mcg/Act Aer 108 MCG IN TID, #90 AER Albuterol Sulfate (Proair Respiclick) 108 Mcg/Act Aer 108 MCG IN Q4HP PRN, #1 AER Alprazolam (Xanax) 1 Mg Tab 1 TAB PO TID, #90 TAB [Alprazolam2 Mg] () 2 MG TAB 2 MG PO BID, 0 Refills Benzonatate (Benzonatate) 200 Mg Cap 1 CAP PO TIDP, #30 CAP Fenofibrate (Fenofibrate) 145 Mg Tab 1 TAB PO DAILY, #30 TAB 5 Refills Hydrocodone-Acetaminophen (Hydrocodone Bitartrate/AC 10-325 mg) 1 Tab Tab 1 TAB PO BID, #10 TAB Lacosamide (Vimpat) 100 Mg Tab 100 MG PO BID Lacosamide (Vimpat) 10 Mg/Ml Alexa 10 MG PO BID, ML Lamotrigine (Lamotrigine) 200 Mg Tab 200 MG PO BID Lamotrigine (Lamictal) 200 Mg Tab 200 MG PO BID, TAB Levetiracetam (Keppra) 500 Mg Tab 1000 MG PO BID for 30 Days, MG Levetiracetam (Keppra Tablet) 500 Mg Tb 500 MG PO BID, TAB Lisinopril (Lisinopril) 10 Mg Tab 10 MG PO DAILY for 30 Days, MG Meclizine Hcl (Meclizine Hcl) 12.5 Mg Tab 12.5 MG PO BIDP PRN for DIZZINESS for 30 Days, MG Memantine Hydrochloride (Memantine HCl) 5 Mg Tab 5 MG PO BID, TAB Promethazine-Dm (Promethazine Dm 6.25-15 mg/5Ml) 1 Alexa Alexa 5 ML PO TID, #180 ML Discontinued Medications: Amoxicillin & Pot Clavulanate (Augmentin Tablet) 875 Mg Tb 875 MG PO BID for 7 Days, #14 TAB 0 Refills Azithromycin (Azithromycin) 500 Mg Tab 1 TAB PO DAILY, #5 TAB Benzonatate (Benzonatate) 200 Mg Cap 1 CAP PO TID, #30 CAP Cephalexin Monohydrate (Cephalexin) 500 Mg Cap 1 CAP PO TID for 3 Days, #9 CAP Nitrofurantoin Monohydrate Mac (Macrobid) 100 Mg Cap 100 MG PO Q12HR, #13 CAP Nitrofurantoin Monohydrate Mac (Macrobid) 100 Mg Cap 100 MG PO BID for 7 Days, #14 CAP 0 Refills Nortriptyline Hcl (Pamelor Capsule) 25 Mg Cp 10 MG PO BID, #30 CAP Phenazopyridine HCl (Phenazopyridine Hydrochlo) 200 Mg Tab 200 MG PO TID for 2 Days, #6 TAB 0 Refills Phenazopyridine Hcl (Eq Urinary Pain Relief) 95 Mg Tab 95 MG OR BID, TAB Prednisone (Prednisone) 20 Mg Tab 60 MG PO DAILY, #15 TAB Pseudoephedrine (Sudafed 12 Hour) 120 Mg Tab 1 TAB PO BID for 10 Days, #20 TAB 0 Refills Discharge Statement: "Patient was advised to return to the ER or call 911 if any headaches, dizziness, shortness of breath, chest pain, abdominal pain, bleeding, fevers, or worsening of medical condition. Patient was counseled about treatment plan, medications, possible side effects, patientverbalized understanding. All questions were answered to the best of my ability. This discharge took greater then 30 minutes in planning, reviewing documentation, counseling the patient, and discussing with other team members." ASSESSMENT ASSESSMENT Assessment Generalized weakness MARCIO LOPEZ MD May 29, 2024 13:13
--- NOTE | 2024-05-30 08:05 | DVHSR ---
APPROVED REPORT EXAM: LIMITED Two-dimensional and M-mode echocardiogram with Doppler and color Doppler. Blood Pressure: 124/45 mmHg INDICATION Dizziness RISK FACTORS Height: 5'6", Weight: 178 DIMENSIONS LVDd4.4 (3.8-5.7cm)LA (2D) (1.9-4.0cm)Aortic Root3.3 (2.0-3.7cm) LVDs3.1 (2.5-4.0cm)LA (MM) (1.9-4.0cm)Aortic Cusp Exc1.9 (1.5-2.0cm) EF (%) 60.0 (55-70%)Rt. Atrium (1.9-4.0cm)Asc. Aorta cm IVSd1.3 (0.7-1.1cm)RV (D) (1.8-2.4cm) PWd1.3 (0.7-1.1cm) Mitral Valve MitralMitral Stenosis E/A ratio0.02D MVAcm2 Aortic Valve Aortic ValveAortic Stenosis LVOT Diameter2.1 (1.8-2.4cm)Doppler AVAcm2 Pulmonic Valve V21.17m/s LEFT VENTRICLE Normal ventricular size. Wall thickness is mildly increased. Ejection fraction is normal and is est imated at 60% based on visual estimate. There is no gross wall motion abnormalities. Diastolic func tion is not well assessed. RIGHT VENTRICLE Right ventricle is of normal size. Right ventricular systolic function is normal. ATRIA Both atria are of normal size. MITRAL VALVE The valve leaflets are not well visualized. There appears to be calcification and thickening in the anterior mitral valve leaflet. There is no significant mitral regurgitation or stenosis. PULMONIC VALVE Likely normal. TRICUSPID VALVE Normal structure and function. No significant tricuspid regurgitation. PA systolic pressure isn't a dequately estimated. AORTIC VALVE Likely of normal structure and function. GREAT VESSELS The aortic root is of normal size. PERICARDIAL EFFUSION No significant pericardial effusion. IVC is not visualized. Other Information Quality : Technically LimitedRhythm : Technically limited study due to body habitus and patient position. Conclusion The study is technically limited. Normal left ventricular size and systolic function. Ejection fraction is estimated at 60%. Mild concentric left ventricular hypertrophy. Normal right ventricular size and systolic function. Thickening and calcification of the anterior mitral valve leaflet. No hemodynamically significant valvular disease. PA systolic pressure is not adequately estimated.
== END 2024-05-29 17:40 | disposition home health service (06) | DRG 139 ==
LOC: ER 23:46 → EDUNIT# 23:46 → EDBD 23:46 → TELE 05-28 05:52 → TELE-WESTW 05-28 16:24
PROVIDERS: ADMIT Nurse Practitioner Family; ATTEND Nurse Practitioner Family
DX: J15.9 Unspecified bacterial pneumonia (principal); R62.7 Adult failure to thrive; J12.9 Viral pneumonia, unspecified; E87.6 Hypokalemia; Z20.822 Contact with and (suspected) exposure to COVID-19; F17.210 Nicotine dependence, cigarettes, uncomplicated; I12.9 Hypertensive chronic kidney disease with stage 1 through stage 4 chronic kidney disease, or unspecified chronic kidney disease; N18.9 Chronic kidney disease, unspecified; E78.5 Hyperlipidemia, unspecified; F41.9 Anxiety disorder, unspecified; F32.A Depression, unspecified; G40.909 Epilepsy, unspecified, not intractable, without status epilepticus; Z82.49 Family history of ischemic heart disease and other diseases of the circulatory system; Z86.73 Personal history of transient ischemic attack (TIA), and cerebral infarction without residual deficits; Z68.32 Body mass index [BMI] 32.0-32.9, adult
CPT/HCPCS: 36415; 70450; 71045; 80048; 80053; 80307; 81001; 83735; 83880; 84132; 85025; 87426; 87804; 93306; 94640; 97163; G0378

== ENCOUNTER 2024-11-08 14:01 | Inpatient (IN) | payer MEDICAID ==
[~2024-11-08] VITALS: Ht 170.2 cm; Wt 88.3 kg
[~2024-11-08 14:01] MED LIST changes: -AUG875T PO; -AZIT500T66 PO; -CEPH500C PO; -NITR-87 PO; -NORT25CA PO; -PHEN-922 PO; -PHEN95TA17 OR; -PRED20TA2 PO; -PSEU120T2 PO
--- NOTE | 2024-11-08 14:08 | ED.PDOC ---
HPI (NEURO) HPI Comments This is a 64 year old female EMILYA presenting to the ED with chief complaint of seizures. EMS reports patient was found already on the ground of her home by her roommates, awake, but not answering questions. EMS relays that the patient has been able to follow commands, but is non-verbal. EMS states patient had been noted to have some arrhythmia on their 12 lead EKG. EMS notes patient is able to ambulate on her own, but appears confused. Patient still unable to answer questions at this time. No further symptoms or concerns reported. Time Seen by MD: 14:05 Primary Care Provider: Ron Reviewed Notes: Nurses Notes, V Belt [employer] As[employer]er [employer] Notes, Medications, Allergies Information Source: Emergency Med Personnel Mode of Arrival: EMS Severity: Moderate Timing: Hours Duration: Since onset Prehospital treatment: None Seizure Quality: Tonic-clonic, Single Episodes Seizure Location: Generalized Onset: At rest Circumstances: Spontaneous Past Medical History PAST MEDICAL HISTORY: CKF, Depression, High Lipids, HTN, Seizures Surgical History: Tubal Ligation GIS COORDINATOR History: No Pertinent GIS COORDINATOR History Family History Family History: Reviewed,noncontributory to illness, Family hx of heart letty, Family hx of HTN Social History Smoker: Cigarettes, Less Than 1 Pack/Day Alcohol: Denies ETOH Use Drugs: Denies Drug Use Lives In: Home Constitutional: denies: chills, diaphoresis, fatigue, fever, malaise, sweats, weakness, others EENTM: denies: blurred vision, double vision, ear bleeding, ear discharge, ear drainage, ear pain, ear ringing, eye pain, eye redness, hearing loss, mouth pain, mouth swelling, nasal discharge, nose bleeding, nose congestion, nose pain, photophobia, tearing, throat pain, throat swelling, voice changes, others Respiratory: denies: cough, hemoptysis, orthopnea, SOB at rest, shortness of breath, SOB with excertion, stridor, wheezing, others Cardiovascular: denies: chest pain, dizzy spells, diaphoresis, Dyspnea on exertion, edema, irregular heart beat, left arm pain, lightheadedness, palpitations, PND, syncope, others Gastrointestinal: denies: abdomen distended, abdominal pain, blood streaked bowels, constipated, diarrhea, dysphagia, difficulty swallowing, hematemesis, melena, nausea, poor appetite, poor fluid intake, rectal bleeding, rectal pain, vomiting, others Genitourinary: denies: abnormal vagina bleeding, burning, dyspareunia, dysuria, flank pain, frequency, hematuria, incontinence, pain, , vagina discharge, urgency, others Neurological: reports: seizure; denies: dizziness, fainting, headache, left sided numbness, left sided weakness, numbness, paresthesia, pre-existing deficit, right sided numbness, right sided weakness, speech problems, tingling, tremors, weakness, others Musculoskeletal: denies: back pain, gout, joint pain, joint swelling, muscle pain, muscle stiffness, neck pain, others Integumetry: denies: bruises, change in color, change in hair/nails, dryness, laceration, lesions, lumps, rash, wounds, others Allergic/Immunocompromised: denies: Difficulty Healing, Frequent Infections, Hives, Itching, others Hematologic/Lymphatic: denies: anemia, blood clots, easy bleeding, easy bruising, swollen glands, others Endocrine: denies: excessive hunger, excessive sweating, excessive thirst, excessive urination, flushing, intolerance to cold, intolerance to heat, unexplained weight gain, unexplained weight loss, others Psychiatric: denies: anxiety, bipolar disorder, depression, hopeless, panic disorder, schizophrenia, sleepless, suicidal, others All Other Systems: Reviewed and Negative Physical Exam General Appearance: Moderate Distress HEENT: Normal ENT Inspection, Pharynx Normal, TMs Normal Neck: Full Range of Motion, Non-Tender, Normal, Normal Inspection Respiratory: Chest Non-Tender, Lungs Clear, No Accessory Muscle Use, No Respiratory Distress, Normal Breath Sounds Cardiovascular: No Edema, No JVD, No Murmur, No Gallop, Normal Peripheral Pulses, Regular Rate/Rhythm Breast Exam: Deferred Gastrointestinal: No Organomegaly, Non Tender, No Pulsatile Mass, Normal Bowel Sounds, Soft Genitalia: Deferred Pelvic: Deferred Rectal: Deferred Extremities: No calf tenderness, Normal capillary refill, Normal inspection, Normal range of motion, Non-tender, No pedal edema Musculoskeletal : Apperance: Normal Neurologic: beef splitter II-XII nml as Tested, Motor Weakness, Normal Affect, No Sensory Deficits, Other (The patient is altered and most likely postictal) Cerebellar Function: Unable to Test Reflexes: Normal Skin: Dry, Pallor, Warm Lymphatic: No Adenopathy EKG EKG : Pulse Rate (adult): 87 [place]: Normal Cardiac Rhythm: NSR Block: RBBB Hypertrophy: LVH ST: Normal Was a procedure done? Was a procedure done?: No Differential Diagnosis (SZ) Seizure: Idiopathic, Syncope, Epilepsy-Status X-Ray, Labs, Meds, VS Vital Signs Date Time Temp Pulse Resp B/P (MAP) Pulse Ox O2 Delivery O2 Flow Rate FiO2 11/08/24 15:00 93 16 95 Room Air* 0 21 11/08/24 14:56 98.2 93 16 171/79 (109) 95 98.2 11/08/24 14:13 98.2 90 16 153/85 (107) 97 98.2 11/08/24 14:09 87 11/08/24 14:05 87 Lab Test 11/08/24 14:29 Range/Units White Blood Count 8.2 4.4-10.8 10^3/uL Red Blood Count 4.87 4.0-5.20 10^6/uL Hemoglobin 15.4 12.2-16.2 g/dL Hematocrit 44.9 36.0-46.0 % Mean Corpuscular Volume 92.1 80.0-100.0 fL Mean Corpuscular Hemoglobin 31.6 28.0-32.0 pg Mean Corpuscular Hemoglobin Concent 34.3 32.0-36.0 g/dL Red Cell Distribution Width 12.9 11.8-14.3 % Platelet Count 281 140-450 10^3/uL Mean Platelet Volume 7.4 6.9-10.8 fL Neutrophils (%) (Auto) 82.9 H 37.0-80.0 % Lymphocytes (%) (Auto) 13.2 10.0-50.0 % Monocytes (%) (Auto) 2.8 0.0-12.0 % Eosinophils (%) (Auto) 0.3 0.0-7.0 % Basophils (%) (Auto) 0.8 0.0-2.0 % Neutrophils # (Auto) 6.8 1.6-8.6 10 ^3/uL Lymphocytes # (Auto) 1.1 0.4-5.4 10 ^3/uL Monocytes # (Auto) 0.2 0-1.3 10 ^3/uL Eosinophils # (Auto) 0 0-0.8 10 ^3/uL Basophils # (Auto) 0.1 0-0.2 10 ^3/uL Nucleated Red Blood Cells 0.1 % Sodium Level 139 136-145 mmol/L Potassium Level 4.6 3.5-5.1 mmol/L Chloride Level 103 98-107 mmol/L Carbon Dioxide Level 24 20-31 mmol/L Anion Gap 12 5-15 Blood Urea Nitrogen 6 L 9-23 mg/dL Creatinine 0.78 0.550-1.02 mg/dL Glomerular Filtration Rate Calc 86 >90 mL/min BUN/Creatinine Ratio 7.7 L 10.0-20.0 Serum Glucose 107 H 74-106 mg/dL Calcium Level 10.3 8.7-10.4 mg/dL CAT scan of the head is negative IV Hep-Lock was established. Seizure precautions were placed The patient's CBC is within normal limits The chemistry panel is within normal limits At this time, the patient is being admitted Images Reviewed?: Images reviewed and evaluated by me Time of 1ST Reevaluation: 17:33 Reevaluation 1ST: Unchanged Patient Education/Counseling: Diagnosis, Treatment, Prognosis Family Education/Counseling: No Family Present Additional Information Reviewed patient's previous visit(s): 05/28/24 for failure to thrive and pneum onia The following tests were ordered, and results were reviewed by me: CT Head, CBC, BMP, EKG Additional information was gathered from interviewing the following independent historian: EMS I reviewed and agreed with the following test results read by other provider: CT Head I discussed treatments and results with medical personnel and: PATIENT Comprehensive systems review obtained and negative except for what is stated in the HPI. Departure 1 Departure Time of Disposition: 17:33 Impression: Primary Impression: Risk for falls Additional Impression: Seizures Disposition: 09 ADMITTED INPATIENT Admit to: Med Surg Condition: Fair Critical Care Note Critical Care Time?: Yes (45 min-critical care time only) Stability Stability form required: Yes Unstable for transfer: Telemetry monitoring (Telemetry monitoring required), ED Physician Assesment (Clinical assesment) Heart Score Heart Score: Heart Score Response (Comments) Value History N/A 0 EKG N/A 0 Age N/A 0 Risk Factors N/A 0 Troponin N/A 0 Total 0 I personally scribed for SIDRA ALARCON MD ([email or web address]) on 11/08/24 at 14:08. Electronically submitted by Cruz Parisi ([email or web address]). I personally scribed for SIDRA ALARCON MD ([email or web address]) on 11/08/24 at 14:09. Electronically submitted by Cruz Parisi ([email or web address]). I personally scribed for SIDRA ALARCON MD ([email or web address]) on 11/08/24 at 14:32. Electronically submitted by Cruz Parisi ([email or web address]). SIDRA ALARCON MD Nov 08, 2024 14:08
[2024-11-08 14:36] LABS: Basophils # (auto) 0.1 10 ^3/uL (0-0.2); Basophils % (auto) 0.8 % (0.0-2.0); Eosinophils # (auto) 0 10 ^3/uL (0-0.8); Eosinophils % (auto) 0.3 % (0.0-7.0); Hematocrit 44.9 % (36.0-46.0); Hemoglobin 15.4 g/dL (12.2-16.2); Lymphocytes # (auto) 1.1 10 ^3/uL (0.4-5.4); Lymphocytes % (auto) 13.2 % (10.0-50.0); Mean Corpuscular Hemoglobin 31.6 pg (28.0-32.0); Mean Corpuscular Hgb Conc. 34.3 g/dL (32.0-36.0); Mean Corpuscular Volume 92.1 fL (80.0-100.0); Monocytes # (auto) 0.2 10 ^3/uL (0-1.3); Monocytes % (auto) 2.8 % (0.0-12.0); Neutrophils # (auto) 6.8 10 ^3/uL (1.6-8.6); Neutrophils % (auto) 82.9 % (37.0-80.0); Nucleated Red Blood Cells % 0.1 %; Platelet Count (auto) 281 10^3/uL (140-450); Red Blood Cells 4.87 10^6/uL (4.0-5.20); Red Cell Distribution Width 12.9 % (11.8-14.3); White Blood Cell 8.2 10^3/uL (4.4-10.8)
[2024-11-08 14:44] LABS: Chloride 103 mmol/L (98-107); Potassium 4.6 mmol/L (3.5-5.1); Sodium 139 mmol/L (136-145)
[2024-11-08 14:45] LABS: Anion Gap 12 (5-15); Calcium 10.3 mg/dL (8.7-10.4); Carbon Dioxide 24 mmol/L (20-31)
[2024-11-08 14:50] LABS: BUN/Creatinine Ratio 7.7 (10.0-20.0); Blood Urea Nitrogen 6 mg/dL (9-23); Glucose 107 mg/dL (74-106)
[2024-11-08 15:00] VITALS: PULSE 93; RESP 16; O2SAT 95
--- NOTE | 2024-11-08 15:36 | DVH ---
EXAM: CT HEAD WITHOUT CONTRAST INDICATION: seizure TECHNIQUE: CT of the head without intravenous contrast. Radiation Dose Information: CT Dose: CTDI volume is 54.8 mGy. Dose-length product is 970.44 mGy*cm The dose indicators for CT are the volume Computed Tomography (CT) Dose Index (CTDIvol) and the Dose Length Product (DLP), and are measured in units of mGy and mGy-cm, respectively. These indicators are not patient dose, but values generated from the CT scanner acquisition factors. The report includes radiation exposure data for exposures received during this examination. COMPARISON: CT HEAD WITHOUT CONTRAST on DOS: 05/28/24, HEAD WITHOUT CONTRAST on DOS: 06/01/19 FINDINGS: There is no evidence of acute intracranial hemorrhage, extra-axial collection, mass effect, midline s hift, herniation or hydrocephalus. The ventricles, sulci and cisterns are age appropriate. The green-white differentiation is intact. Patchy periventricular and subcortical white matter hypoattenuation is nonspecific but may be related to small vessel ischemic disease. The visualized paranasal sinuses and mastoid air cells are clear. The surrounding soft tissues and osseous structures are unremarkable. IMPRESSION: 1. No acute intracranial abnormality. 2. No significant change from 05/28/2024.
[2024-11-08] MEDS ORDERED: ONDANSETRON HCL 4 MG/2 ML VIAL IV PRN (19:30)
[2024-11-08] MEDS ORDERED: LORazepam 2MG/ML-1ML VIAL IV PRN (19:30)
[2024-11-08] MEDS ORDERED: ACETAMINOPHEN 325 MG TAB PO PRN (19:30)
[2024-11-08] MEDS: cloNIDine HCL 0.1 MG TAB PO ONE (19:55)
[2024-11-08] MEDS ORDERED: LACOSAMIDE 50 MG TAB PO SCH (22:00)
[2024-11-08] MEDS: MEMANTINE HCL 5 MG TAB PO SCH (22:36)
[2024-11-08] MEDS: lamoTRIgine 100 MG TAB PO SCH (22:37)
[2024-11-08] MEDS: levETIRAcetam 500 MG TAB PO SCH (22:37)
[2024-11-08] MEDS: LACOSAMIDE 50 MG TAB PO SCH (22:38)
--- NOTE | 2024-11-08 23:15 | DVHHP2 ---
History of Present Illness Reason for Visit: Seizure History of Present Illness 64-year-old female presents for evaluation of seizures. Patient was noted to be having a seizure by one of her roommates. Patient is currently awake but not following commands or answering questions. No oral or head trauma noted. No unilateral weakness noted. Past Medical History Seizure, hypertension, dyslipidemia, depression, chronic kidney disease,? Dementia Past Surgical History Tubal ligation Family History Noncontributory Smoke: No ALCOHOL: none Drugs: None Review of Systems Review of Systems Review of systems are limited due to the patient's altered mental status. Allergies: Coded Allergies: Lidocaine (Verified Allergy, Unknown, 09/03/15) Medications Current Medications Medications Dose Ordered Sig/Octavio Route Start Time Stop Time Status Last Admin Dose Admin Lamotrigine 200 mg Q12HR PO 11/08/24 22:00 11/08/24 22:37 200 MG Levetiracetam 1,000 mg BID PO 11/08/24 22:00 11/08/24 22:37 1,000 MG Lisinopril 10 mg DAILY PO 11/09/24 10:00 Memantine 5 mg Q12HR PO 11/08/24 22:00 11/08/24 22:36 5 MG Lorazepam 1 mg Q5MINP PRN IV 11/08/24 19:30 Ondansetron HCl 4 mg Q4HP PRN IV 11/08/24 19:30 Acetaminophen 650 mg Q6HP PRN PO 11/08/24 19:30 Lacosamide 150 mg BID PO 11/08/24 22:00 11/08/24 22:38 150 MG Exam Vital Signs Vital Signs Date Time Temp Pulse Resp B/P (MAP) Pulse Ox O2 Delivery O2 Flow Rate FiO2 11/08/24 22:40 96 11/08/24 22:20 99.5 13 134/91 (105) 94 99.5 11/08/24 15:00 Room Air* 0 21 Exam Gen: 64-year-old female in no apparent distress Skin: Warm, dry, normal color and texture, no rash. HEENT: Normocephalic atraumatic, mucous membranes moist and pink. Neck: Cervical and supraclavicular nodes normal without enlargement, trachea is midline, thyroid gland is normal without masses. Pulmonary: Clear to auscultation and percussion bilaterally. Cardiac: Regular rate and rhythm. No murmur Abdomen: Soft, nontender, nondistended, bowel sounds present all 4 quadrants, no guarding, no rigidity, no organomegaly. Extremities: No cyanosis, clubbing, no edema Neuro: Lethargic no focal deficits noted Labs/Xrays ORDERING PHYSICIAN: SIDRA ALARCON MD PROCEDURE(s): HWOCT - HEAD WITHOUT CONTRAST REASON: seizure ORDER NUMBER(s): [id number], ACCESSION NUMBER(s): [id number] EXAM: CT HEAD WITHOUT CONTRAST INDICATION: seizure TECHNIQUE: CT of the head without intravenous contrast. Radiation Dose Information: CT Dose: CTDI volume is 54.8 mGy. Dose-length product is 970.44 mGy*cm The dose indicators for CT are the volume Computed Tomography (CT) Dose Index (CTDIvol) and the Dose Length Product (DLP), and are measured in units of mGy and mGy-cm, respectively. These indicators are not patient dose, but values generated from the CT scanner acquisition factors. The report includes radiation exposure data for exposures received during this examination. COMPARISON: CT HEAD WITHOUT CONTRAST on DOS: 05/28/24, HEAD WITHOUT CONTRAST on DOS: 06/01/19 FINDINGS: There is no evidence of acute intracranial hemorrhage, extra-axial collection, mass effect, midline shift, herniation or hydrocephalus. The ventricles, sulci and cisterns are age appropriate. The green-white differentiation is intact. Patchy periventricular and subcortical white matter hypoattenuation is nonspecific but may be related to small vessel ischemic disease. The visualized paranasal sinuses and mastoid air cells are clear. The surrounding soft tissues and osseous structures are unremarkable. IMPRESSION: 1. No acute intracranial abnormality. 2. No significant change from 05/28/2024. Labs Test 11/08/24 20:23 11/08/24 14:29 Range/Units POC Glucose 133 H 70-106 mg/dl White Blood Count 8.2 4.4-10.8 10^3/uL Red Blood Count 4.87 4.0-5.20 10^6/uL Hemoglobin 15.4 12.2-16.2 g/dL Hematocrit 44.9 36.0-46.0 % Mean Corpuscular Volume 92.1 80.0-100.0 fL Mean Corpuscular Hemoglobin 31.6 28.0-32.0 pg Mean Corpuscular Hemoglobin Concent 34.3 32.0-36.0 g/dL Red Cell Distribution Width 12.9 11.8-14.3 % Platelet Count 281 140-450 10^3/uL Mean Platelet Volume 7.4 6.9-10.8 fL Neutrophils (%) (Auto) 82.9 H 37.0-80.0 % Lymphocytes (%) (Auto) 13.2 10.0-50.0 % Monocytes (%) (Auto) 2.8 0.0-12.0 % Eosinophils (%) (Auto) 0.3 0.0-7.0 % Basophils (%) (Auto) 0.8 0.0-2.0 % Neutrophils # (Auto) 6.8 1.6-8.6 10 ^3/uL Lymphocytes # (Auto) 1.1 0.4-5.4 10 ^3/uL Monocytes # (Auto) 0.2 0-1.3 10 ^3/uL Eosinophils # (Auto) 0 0-0.8 10 ^3/uL Basophils # (Auto) 0.1 0-0.2 10 ^3/uL Nucleated Red Blood Cells 0.1 % Sodium Level 139 136-145 mmol/L Potassium Level 4.6 3.5-5.1 mmol/L Chloride Level 103 98-107 mmol/L Carbon Dioxide Level 24 20-31 mmol/L Anion Gap 12 5-15 Blood Urea Nitrogen 6 L 9-23 mg/dL Creatinine 0.78 0.550-1.02 mg/dL Glomerular Filtration Rate Calc 86 >90 mL/min BUN/Creatinine Ratio 7.7 L 10.0-20.0 Serum Glucose 107 H 74-106 mg/dL Calcium Level 10.3 8.7-10.4 mg/dL Assessment/Plan Assessment/Plan Assessment Breakthrough seizure Hypertension ? Dementia Plan Admit the patient to [facility] to the hospitalist Nephrology consultation Resume home medications Continue treatment per orders. Plan discussed with: Patient My Orders Orders - GOOD STAUFFER Procedure Category Date Status Time Seizure Precautions JOSE 11/08/[address] 19:25 Lamotrigine Tablet PHA 11/08/24 In Process (Lamictal Tablet) 22:00 Levetiracetam Tablet PHA 11/08/24 In Process (Keppra Tablet) 22:00 Lisinopril Tablet PHA 11/09/24 In Process (Zestril Tablet) 10:00 Memantine Tablet PHA 11/08/24 In Process (Namenda Tablet) 22:00 Lorazepam 2mg/Ml Inj PHA 11/08/24 In Process (Ativan Inj) 19:30 * Neurology Consult CONS 11/08/24 Transmitted 19:25 Basic Metabolic Panel LAB 11/09/24 Verified 04:00 Admit ADMIT 11/08/24 Transmitted 19:25 Ondansetron Hcl PHA 11/08/24 In Process (Zofran) 19:30 Cardiac DIET 11/09/24 Transmitted Diet-2gna,Lofat,Lochol Breakfast Condition: Stable JOSE 11/08/24 In Process 19:25 Acetaminophen Tablet PHA 11/08/24 In Process (Tylenol Tablet) 19:30 Bedrest With Bathroom JOSE 11/08/24 In Process Privileg 19:25 Lacosamide (Vimpat) PHA 11/08/24 In Process 22:00 Date of Service: Nov 08, 2024 Billing Provider: GOOD STAUFFER Common Visit Codes: [id number] INP/OBS CARE (HIGH) GOOD STAUFFER Nov 08, 2024 23:15
[2024-11-09] VITALS (10 sets, daily range): BP systolic 133–161; BP diastolic 69–95; PULSE 59–88; RESP 16–18; TEMP 98–99.8; O2SAT 95–98
[2024-11-09 07:02] LABS: Chloride 104 mmol/L (98-107); Potassium 3.9 mmol/L (3.5-5.1); Sodium 142 mmol/L (136-145)
[2024-11-09 07:03] LABS: Anion Gap 11 (5-15); Carbon Dioxide 27 mmol/L (20-31)
[2024-11-09 07:05] LABS: Calcium 10.5 mg/dL (8.7-10.4)
[2024-11-09 07:08] LABS: BUN/Creatinine Ratio 12.5 (10.0-20.0); Blood Urea Nitrogen 11 mg/dL (9-23); Glucose 101 mg/dL (74-106)
[2024-11-09] MEDS: LISINOPRIL 5 MG TAB PO SCH (10:00)
--- NOTE | 2024-11-09 10:42 | ECG ---
[facility] Test Date: 2024-11-08 Test Time: 14:05:07 Pat Name: OTTONIEL RIVERA Department: ED Room: 0280 A Gender: F Sales Support Associate: liliya : 1960 Requested By: SIDRA ALARCON Order Number: [id number] Reading MD: Geoff Malloy Measurements Intervals [place] Rate: 87 P: 11 WI: 150 QRS: -39 QRSD: 111 T: -16 QT: 357 QTc: 430 Interpretive Statements Sinus rhythm Incomplete RBBB and LAFB Abnormal R-wave progression, late transition Left ventricular hypertrophy Electronically Signed On 11-11-2024 19:59:00 PDT by Geoff Malloy Please click the below link to view image of tracing.
[2024-11-09] MEDS ORDERED: hydrALAZINE HCL 25 MG TAB PO ONE (17:30)
--- NOTE | 2024-11-09 17:33 | DVHPN2 ---
Subjective Seen and examined at bedside, patient reports episodes of confusion. Await Neuro Cx. Need URINE SAMPLE. Changes from previous H/P or p: No Changes Objective Vitals Vital Signs Date Time Temp Pulse Resp B/P (MAP) Pulse Ox O2 Delivery O2 Flow Rate FiO2 11/09/24 17:00 98.9 85 18 161/95 (117) 96 98.9 11/09/24 08:00 Room Air* 0 21 Intake/Output Intake and Output 11/09/24 07:00 Intake Total 250 ml Balance 250 ml Intake Oral 250 ml General Appearance: Alert, Oriented X3, Cooperative HEENT: Atraumatic Lungs: Clear to auscultation Cardiovascular: Regular rate, Normal S1, Normal S2 Abdomen: Normal bowel sounds, Soft Psych/Mental Status: Mental status NL Medications Current Medications Medications Dose Ordered Sig/Octavio Route Start Time Stop Time Status Last Admin Dose Admin Lamotrigine 200 mg Q12HR PO 11/08/24 22:00 11/08/24 22:37 200 MG Levetiracetam 1,000 mg BID PO 11/08/24 22:00 11/08/24 22:37 1,000 MG Lisinopril 10 mg DAILY PO 11/09/24 10:00 Memantine 5 mg Q12HR PO 11/08/24 22:00 11/09/24 10:07 5 MG Lorazepam 1 mg Q5MINP PRN IV 11/08/24 19:30 Ondansetron HCl 4 mg Q4HP PRN IV 11/08/24 19:30 Acetaminophen 650 mg Q6HP PRN PO 11/08/24 19:30 Lacosamide 150 mg BID PO 11/08/24 22:00 11/08/24 22:38 150 MG Hydralazine HCl 25 mg Q8HR PO 11/09/24 22:00 UNV Laboratory Results Laboratory Tests 11/08/24 14:29 11/09/24 06:17 Chemistry Test 11/09/24 06:17 Calcium Level 10.5 mg/dL (8.7-10.4) H Assessment/Plan Assessment/Plan # Toxic Encephalopathy - Needs UA - Neuro Cx # Seizure Disorder - Cont Meds - Neuro Cx # Dementia? Plan discussed with: Patient My Orders Orders - JULIUS RILEY MD Procedure Category Date Status Time Urinalysis LAB 6/26/25 Transmitted 17:26 Drug Screen LAB 11/09/24 Transmitted 17:26 Hydralazine Hcl PHA 11/09/24 Transmitted Tablet (Apresoline 22:00 Hydralazine Hcl PHA 11/09/24 Transmitted Tablet (Apresoline 17:30 Comprehensive LAB 11/10/24 Verified Metabolic Panel 04:00 Complete Blood Count LAB 11/10/24 Verified 04:00 Magnesium LAB 11/10/24 Verified 04:00 Phosphorus LAB 11/10/24 Verified 04:00 Straight Cath Patient ORDERS 11/09/24 Transmitted 17:26 Date of Service: Nov 09, 2024 Billing Provider: JULIUS RILEY MD Common Visit Codes: [id number] INP/OBS CARE(HIGH) JULIUS RILEY MD Nov 09, 2024 17:33
[2024-11-09 19:37] LABS: Urine Bacteria MANY /hpf (None Seen); Urine Blood Negative /uL (Negative); Urine Clarity Turbid (Clear); Urine Color Colorless (Yellow); Urine Protein, UAD Negative (Negative); Urine Specific Gravity 1.005 (1.001-1.035); Urine Squamous Epithelial Cell FEW /hpf (<5); Urine Urobilinogen Normal (Negative); Urine WBC 117 /HPF (0-5)
[2024-11-09 19:52] LABS: Amphetamine Screen, Urine Neg (NEGATIVE); Barbiturate Scree,Urine Neg (NEGATIVE); Benzodiazephine Screen, Urine Neg (NEGATIVE); Cannabinoid Screen, Urine Neg (NEGATIVE); Cocaine Screen, Urine Neg (NEGATIVE); Opiate Scree,Urine Neg (NEGATIVE); Phencyclidine Screen, Urine Neg (NEGATIVE)
[2024-11-09] MEDS: hydrALAZINE HCL 25 MG TAB PO SCH (21:44)
[2024-11-09] MEDS ORDERED: hydrALAZINE HCL 25 MG TAB ONE (21:44)
--- NOTE | 2024-11-09 22:24 | DVHINCON2 ---
Date of service: Nov 09, 2024 Referring Physician Quirino Reason for Consultation Breakthrough seizures History of Present Illness Ms. Hauser is a 64-year-old right-handed female with a history of hypertension and anxiety disorder. The patient into the hospital in 11/08/2024 with a chief complaint of seizure, at this time, she is alert, oriented x3, but not a good historian I saw her in 02/2012, on 09/03/2015, 01/20/2016 for seizure She is not aware what happened to her, she remember going to the bed the night prior, but the next memory was waking up in the hospital. according to ER note, the patient was found on the floor by her roommate, awake but not able to answer questions. When EMS came over, the patient was able to follow commands but was nonverbal She has a seizure disorder since 2002, she has company amnesia about her seizure symptoms, She has two type of seizures, in one of them, feels generalized tonic- clonic activity, which only happens once a while, she did not have one in 2023, and this was only one since 2024. The other type seizure was spells event where she become nonresponsive, spacing out briefly with complete amnesia. She does not know how often this happens, but she believes it is a happened quite frequently She sees a local neurologist, she is on Keppra 1000 mg b.i.d., Vimpat 150 mg b.i.d., lamotrigine 200 mg b.i.d.. He reports good compliance She did not recent chills, fever, coughing, nausea, vomit, diarrhea or other acute illness, UDS, 11/09/2024: Negative Urinalysis, 11/09/2024: WBC: 116, urine leukocyte esterase: 3+ CBC, 11/08/2024: Unremarkable BMP, 11/08/2024: Unremarkable CT head, 09/26/15: Unremarkable unenhanced CT of the brain. No interval change CT head, 11/08/2024: 1. No acute intracranial abnormality. 2. No significant change from 05/28/2024. MR head, 01/02/2024: No evidence of acute infarction, intracranial hemorrhage, mass effect or hydrocephalus. Past Medical History Hypertension, dyslipidemia, chronic kidney disease, anxiety, depression, closed head injury Past Surgical History Tubal ligation, facial and head laceration repair Family History: Cerebrovascular accident (CVA) G8 FATHER FH: myocardial infarction G8 FATHER Family history: Cardiovascular disease G8 FATHER Family History Hypertension, heart attack Social History The patient was a tobacco smoker, but denies history of alcohol or recreational substance abuse. Allergies: Coded Allergies: Lidocaine (Verified Allergy, Unknown, 09/03/15) Home Meds Reported Medications Lisinopril (Lisinopril) 10 Mg Tab, 10 MG PO DAILY for 30 Days, MG 01/01/24 Levetiracetam (Keppra) 500 Mg Tab, 1000 MG PO BID for 30 Days, MG 05/11/17 Lamotrigine (Lamotrigine) 200 Mg Tab, 200 MG PO BID 03/16/12 Lacosamide (Vimpat) 100 Mg Tab, 100 MG PO BID 03/16/12 Current Medications Current Medications Medications (Trade) Dose Ordered Sig/Octavio Route PRN Reason Start Time Stop Time Status Last Admin Lisinopril (Zestril Tablet) 10 mg DAILY PO 11/09/24 10:00 Hydralazine HCl (Apresoline Tablet) 25 mg Q8HR PO 11/09/24 22:00 11/09/24 21:44 Review of Systems As mentioned above. The other system a negative Vital Signs Vital Signs Date Time Temp Pulse Resp B/P (MAP) Pulse Ox O2 Delivery O2 Flow Rate FiO2 11/09/24 21:44 147/74 11/09/24 17:00 98.9 85 18 96 98.9 11/09/24 08:00 Room Air* 0 21 Physical Exam GENERAL EXAM: General: the patient is well developed and nourished. No acute distress. HEENT: Normocephalic, neck is supple, no carotid bruits. No mass. RESPIRATORY: Normal respiratory effort with symmetrical lung expansion. Lungs clear to auscultation. CARDIOVASCULAR: Regular rate and rhythm with no murmurs. S1, S2. ABDOMEN: Soft, nontender, normal bowel sound NEUROLOGICAL: MENTAL STATUS: Awake and alert. Oriented to person, place, time and general circumstances. Able to give personal history. SPEECH, LANGUAGE, HIGHER CORTICAL FUNCTION: no aphasia or dysathria. CRANIAL NERVES: #2: Intact visual hare to confrontation. The optic discs were sharp. #3,4,6: Pupils are equal, round and reactive. EOMs full and conjugate. No nystagmus. #5: Facial sensation intact in all three divisions bilaterally. Mandibular strength intact. #7: Facial muscles symmetrical and strength intact. #8: Hearing grossly normal to voice. #9,10: Uvula and soft palate rise in the midline. Swallow and voice are normal. #11: Trapezius and sternomastoid strength intact bilaterally. #12: Tongue midline. No fasciculations or atrophy. SENSATION: Sensation to touch and pinprick is normal. MOTOR: Normal tone in the upper and lower extremity. Normal muscle bulk. No fasciculations. No abnormal movements or posturing. Muscle strength of the major groups in the upper extremities is 5/5. Muscle strength of the major groups in the lower extremities is 5/5. REFLEXES: Deep tendon reflexes symmetrical. No pathological reflexes. CEREBELLAR/COORDINATION: Finger to nose and heel to briceno are normal bilaterally. GAIT/STATION: deferred. Labs/Diagnostic Data Labs Test 11/09/24 17:53 11/09/24 06:17 11/08/24 20:23 11/08/24 14:29 Range/Units Urine Color Colorless Yellow Urine Clarity Turbid H Clear Urine pH 6.0 5.0-9.0 Urine Specific D[place]ron 1.005 1.001-1.035 Urine Protein Negative Negative Urine Ketones Trace Negative Urine Blood Negative Negative /uL Urine Nitrite Negative Negative Urine Bilirubin Negative Negative Urine Urobilinogen Normal Negative mg/dL Urine Leukocyte Esterase 3+ Negative /uL Urine RBC <1 0 - 4 /hpf Urine Microscopic WBC 117 H 0-5 /HPF Urine Squamous Epithelial Cells Few <5 /hpf Urine Bacteria Many H None Seen /hpf Urine Glucose Normal Normal mg/dL Urine Opiates Screen Neg NEGATIVE Urine Fentanyl Screen Neg NEGATIVE Urine Barbiturates Screen Neg NEGATIVE Urine Phencyclidine Screen Neg NEGATIVE Urine Amphetamines Screen Neg NEGATIVE Urine Benzodiazepines Screen Neg NEGATIVE Urine Cocaine Screen Neg NEGATIVE Urine Cannabinoids Screen Neg NEGATIVE Sodium Level 142 136-145 mmol/L Potassium Level 3.9 3.5-5.1 mmol/L Chloride Level 104 98-107 mmol/L Carbon Dioxide Level 27 20-31 mmol/L Anion Gap 11 5-15 Blood Urea Nitrogen 11 9-23 mg/dL Creatinine 0.88 0.550-1.02 mg/dL Glomerular Filtration Rate Calc 74 >90 mL/min BUN/Creatinine Ratio 12.5 10.0-20.0 Serum Glucose 101 74-106 mg/dL Calcium Level 10.5 H 8.7-10.4 mg/dL POC Glucose 133 H 70-106 mg/dl White Blood Count 8.2 4.4-10.8 10^3/uL Red Blood Count 4.87 4.0-5.20 10^6/uL Hemoglobin 15.4 12.2-16.2 g/dL Hematocrit 44.9 36.0-46.0 % Mean Corpuscular Volume 92.1 80.0-100.0 fL Mean Corpuscular Hemoglobin 31.6 28.0-32.0 pg Mean Corpuscular Hemoglobin Concent 34.3 32.0-36.0 g/dL Red Cell Distribution Width 12.9 11.8-14.3 % Platelet Count 281 140-450 10^3/uL Mean Platelet Volume 7.4 6.9-10.8 fL Neutrophils (%) (Auto) 82.9 H 37.0-80.0 % Lymphocytes (%) (Auto) 13.2 10.0-50.0 % Monocytes (%) (Auto) 2.8 0.0-12.0 % Eosinophils (%) (Auto) 0.3 0.0-7.0 % Basophils (%) (Auto) 0.8 0.0-2.0 % Neutrophils # (Auto) 6.8 1.6-8.6 10 ^3/uL Lymphocytes # (Auto) 1.1 0.4-5.4 10 ^3/uL Monocytes # (Auto) 0.2 0-1.3 10 ^3/uL Eosinophils # (Auto) 0 0-0.8 10 ^3/uL Basophils # (Auto) 0.1 0-0.2 10 ^3/uL Nucleated Red Blood Cells 0.1 % Assessment Grand mal seizure Complete partial seizure Plan/Recommendation Monitoring Supportive treatment Lamictal 200 mg twice a day, Keppra 1000 mg twice a day, Vimpat 150 mg twice a day, Ativan for seizure breakthrough She is not licensed to drive More recommendation per clinical course Follow up with her doctors on discharge Progress: Poor This medical document was created using an electronic medical record system with [employer] dictation system. Although this document has been carefully reviewed, there may still be some phonetic and typographical errors. These areas are purely typographical due to imperfections of the software programs, and do not reflect any compromise in the patient's medical care. Plan discussed with: Patient, Other NAN GRANT MD Nov 09, 2024 22:24
[2024-11-09] MEDS ORDERED: LORazepam 2MG/ML-1ML VIAL IV PRN (23:15)
[2024-11-10] VITALS (8 sets, daily range): BP systolic 116–148; BP diastolic 56–93; PULSE 84–96; RESP 16–19; TEMP 98.6–99.3; O2SAT 94–96
[2024-11-10 06:52] LABS: Basophils # (auto) 0.1 10 ^3/uL (0-0.2); Basophils % (auto) 0.8 % (0.0-2.0); Eosinophils # (auto) 0.1 10 ^3/uL (0-0.8); Eosinophils % (auto) 0.9 % (0.0-7.0); Hematocrit 45.3 % (36.0-46.0); Hemoglobin 15.6 g/dL (12.2-16.2); Lymphocytes # (auto) 2.4 10 ^3/uL (0.4-5.4); Lymphocytes % (auto) 29.4 % (10.0-50.0); Mean Corpuscular Hemoglobin 31.4 pg (28.0-32.0); Mean Corpuscular Hgb Conc. 34.5 g/dL (32.0-36.0); Mean Corpuscular Volume 91.1 fL (80.0-100.0); Monocytes # (auto) 0.5 10 ^3/uL (0-1.3); Monocytes % (auto) 6.5 % (0.0-12.0); Neutrophils # (auto) 5.1 10 ^3/uL (1.6-8.6); Neutrophils % (auto) 62.4 % (37.0-80.0); Nucleated Red Blood Cells % 0.1 %; Platelet Count (auto) 260 10^3/uL (140-450); Red Blood Cells 4.97 10^6/uL (4.0-5.20); Red Cell Distribution Width 12.9 % (11.8-14.3); White Blood Cell 8.1 10^3/uL (4.4-10.8)
[2024-11-10 07:18] LABS: Alanine Aminotransferase 10 U/L (7-40); Alkaline Phosphatase 78 U/L (46-116); Anion Gap 10 (5-15); Aspartate Aminotransferase 11 U/L (<34); BUN/Creatinine Ratio 11.7 (10.0-20.0); Blood Urea Nitrogen 11 mg/dL (9-23); Carbon Dioxide 27 mmol/L (20-31); Chloride 105 mmol/L (98-107); Glucose 89 mg/dL (74-106); Magnesium 2.3 mg/dL (1.6-2.6); Potassium 3.8 mmol/L (3.5-5.1); Sodium 142 mmol/L (136-145); Total Protein 7.7 g/dL (5.7-8.2)
[2024-11-10 07:19] LABS: Phosphorus 3.6 mg/dL (2.4-5.1)
[2024-11-10 07:20] LABS: Albumin 5.1 g/dL (3.2-4.8); Bilirubin, Total 1.3 mg/dL (0.2-1.0); Calcium 10.5 mg/dL (8.7-10.4)
--- NOTE | 2024-11-10 12:01 | DVHPN2 ---
Subjective Seen and examined at bedside, Start Rocephin for UTI Changes from previous H/P or p: No Changes Objective Vitals Vital Signs Date Time Temp Pulse Resp B/P (MAP) Pulse Ox O2 Delivery O2 Flow Rate FiO2 11/10/24 10:10 116/56 11/10/24 07:57 96 Room Air* 0 21 11/10/24 05:00 99.0 95 19 99.0 Intake/Output Intake and Output 11/10/24 07:00 Intake Total 2025 ml Balance 2025 ml Intake Oral 2025 ml # Voids 9 General Appearance: Alert, Oriented X3, Cooperative HEENT: Atraumatic Lungs: Clear to auscultation Cardiovascular: Regular rate, Normal S1, Normal S2 Abdomen: Normal bowel sounds, Soft Psych/Mental Status: Mental status NL Medications Current Medications Medications Dose Ordered Sig/Octavio Route Start Time Stop Time Status Last Admin Dose Admin Lamotrigine 200 mg Q12HR PO 11/08/24 22:00 11/10/24 10:08 200 MG Levetiracetam 1,000 mg BID PO 11/08/24 22:00 11/10/24 10:08 1,000 MG Lisinopril 10 mg DAILY PO 11/09/24 10:00 11/10/24 10:10 10 MG Memantine 5 mg Q12HR PO 11/08/24 22:00 11/10/24 10:09 5 MG Ondansetron HCl 4 mg Q4HP PRN IV 11/08/24 19:30 Acetaminophen 650 mg Q6HP PRN PO 11/08/24 19:30 Lacosamide 150 mg BID PO 11/08/24 22:00 11/10/24 10:09 150 MG Hydralazine HCl 25 mg Q8HR PO 11/09/24 22:00 11/10/24 06:39 25 MG Lorazepam 1 mg Q5MINP PRN IV 11/09/24 23:15 Laboratory Results Laboratory Tests 11/10/24 06:19 Chemistry Test 11/10/24 06:19 Albumin 5.1 g/dL (3.2-4.8) H Calcium Level 10.5 mg/dL (8.7-10.4) H Magnesium Level 2.3 mg/dL (1.6-2.6) Phosphorus Level 3.6 mg/dL (2.4-5.1) Total Protein 7.7 g/dL (5.7-8.2) LFT Test 11/10/24 06:19 Alanine Aminotransferase (ALT) 10 U/L (7-40) Alkaline Phosphatase 78 U/L (46-116) Aspartate Amino Transferase (AST) 11 U/L (<34) Total Bilirubin 1.3 mg/dL (0.2-1.0) H Urinalysis Test 11/09/24 17:53 Urine Color Colorless (Yellow) Urine Clarity Turbid (Clear) H Urine pH 6.0 (5.0-9.0) Urine Specific [place] 1.005 (1.001-1.035) Urine Protein Negative (Negative) Urine Ketones Trace (Negative) Urine Blood Negative /uL (Negative) Urine Nitrite Negative (Negative) Urine Bilirubin Negative (Negative) Urine Urobilinogen Normal mg/dL (Negative) Urine Leukocyte Esterase 3+ /uL (Negative) Urine RBC <1 /hpf (0 - 4) Urine Microscopic WBC 117 /HPF (0-5) H Urine Squamous Epithelial Cells Few /hpf (<5) Urine Bacteria Many /hpf (None Seen) H Urine Glucose Normal mg/dL (Normal) Assessment/Plan Assessment/Plan # Toxic Encephalopathy - Neuro Cx noted # Acute Cystitis - Rocephin # Seizure Disorder - Cont Meds - Neuro Cx # Dementia? Plan discussed with: Patient My Orders Orders - JULIUS RILEY MD Procedure Category Date Status Time Hydralazine Hcl PHA 11/09/24 In Process Tablet (Apresoline 22:00 Straight Cath Patient ORDERS 11/09/24 Transmitted 17:26 Date of Service: Nov 10, 2024 Billing Provider: JULIUS RILEY MD Common Visit Codes: [id number] INP/OBS CARE(HIGH) JULIUS RILEY MD Nov 10, 2024 12:00
[2024-11-10] MEDS: cefTRIAXone 2GM/50ML D5W 50 ML IV ONE (15:36)
--- NOTE | 2024-11-10 23:46 | DVHPN2 ---
Progress Note - Dictate Date Seen: Nov 10, 2024 Medical Necessity Reason Pt with a Central, PICC or Fol: No Subjective Ms. Hauser is a 64-year-old right-handed female with a history of hypertension and anxiety disorder. The patient into the hospital in 11/08/2024 with a chief complaint of seizure I saw her in 02/2012, on 09/03/2015, 01/20/2016 for seizure I have seen and examined the patient, I have talked to her nurse, she is alert, oriented x3, but she claims she is confused and her mind was different. No seizure activity in the hospital Nurse does not know why her anticoagulation was discontinued UDS, 11/09/2024: Negative Urinalysis, 11/09/2024: WBC: 116, urine leukocyte esterase: 3+ CBC, 11/08/2024: Unremarkable BMP, 11/08/2024: Unremarkable CT head, 09/26/15: Unremarkable unenhanced CT of the brain. No interval change CT head, 11/08/2024: 1. No acute intracranial abnormality. 2. No significant change from 05/28/2024. MR head, 01/02/2024: No evidence of acute infarction, intracranial hemorrhage, mass effect or hydrocephalus. vital signs Vital Sign Date Time Temp Pulse Resp B/P (MAP) Pulse Ox O2 Delivery O2 Flow Rate FiO2 11/10/24 21:30 127/73 11/10/24 21:00 99.3 96 18 95 99.3 11/10/24 20:00 Room Air* 0 21 Total Intake and Output 11/09/24 11/09/24 11/10/24 15:00 23:00 07:00 Intake Total 1675 ml 350 ml Balance 1675 ml 350 ml medications Current Medications Medications Dose Ordered Sig/Octavio Route Start Time Stop Time Status Last Admin Dose Admin Lamotrigine 200 mg Q12HR PO 11/08/24 22:00 11/10/24 21:29 200 MG Levetiracetam 1,000 mg BID PO 11/08/24 22:00 11/10/24 21:30 1,000 MG Lisinopril 10 mg DAILY PO 11/09/24 10:00 11/10/24 10:10 10 MG Memantine 5 mg Q12HR PO 11/08/24 22:00 11/10/24 21:30 5 MG Ondansetron HCl 4 mg Q4HP PRN IV 11/08/24 19:30 Acetaminophen 650 mg Q6HP PRN PO 11/08/24 19:30 Lacosamide 150 mg BID PO 11/08/24 22:00 11/10/24 21:29 150 MG Hydralazine HCl 25 mg Q8HR PO 11/09/24 22:00 11/10/24 21:30 25 MG Lorazepam 1 mg Q5MINP PRN IV 11/09/24 23:15 Ceftriaxone Sodium 50 ml @ 100 mls/hr DAILY@09 IV 11/11/24 09:00 objective General: the patient is well developed and nourished. No acute distress. MENTAL STATUS: Subjective SPEECH, LANGUAGE, HIGHER CORTICAL FUNCTION: no aphasia or dysathria. CRANIAL NERVES: Pupils are equal, round and reactive. EOMs full and conjugate. No nystagmus.Facial sensation intact in all three divisions bilaterally. Mandibular strength intact. Facial muscles symmetrical and strength intact. SENSATION: Sensation to touch and pinprick is normal. MOTOR: Normal tone in the upper and lower extremity. Normal muscle bulk. No fasciculations. No abnormal movements or posturing. Muscle strength of the major groups in the extremities is 5/5. REFLEXES: Deep tendon reflexes symmetrical. No pathological reflexes. CEREBELLAR/COORDINATION: Finger to nose and heel to briceno are normal bilaterally. GAIT/STATION: deferred. laboratory and microbiology Laboratory Tests 11/10/24 06:19 Test 11/10/24 06:19 Range/Units Serum Glucose 89 74-106 mg/dL Problem List Grand mal seizure Complete partial seizure Confusion Assessment/Plan Monitoring Supportive treatment EEG Lamictal 200 mg twice a day, Keppra 1000 mg twice a day, Vimpat 150 mg twice a day, Ativan for seizure breakthrough She is not licensed to drive More recommendation per clinical course Follow up with her doctors on discharge This medical document was created using an electronic medical record system with [employer] dictation system. Although this document has been carefully reviewed, there may still be some phonetic and typographical errors. These areas are purely typographical due to imperfections of the software programs, and do not reflect any compromise in the patient's medical care. Prognosis poor Plan discussed with: Patient, Other Total Time (mins): 35 NAN GRANT MD Nov 10, 2024 23:46
[2024-11-11 01:00] VITALS: BP 130/64; PULSE 104; RESP 18; TEMP 97.7; O2SAT 95
[2024-11-11 05:00] VITALS: BP 144/53; PULSE 98; RESP 17; TEMP 98.6; O2SAT 95
[2024-11-11 08:00] VITALS: RESP 16
[2024-11-11 08:29] VITALS: BP 105/45; PULSE 95; RESP 20; TEMP 98.6; O2SAT 95
[2024-11-11] MEDS: cefTRIAXone 1GM/50ML D5W 50 ML IV SCH (09:18)
[2024-11-11] MEDS ORDERED: CEPH250C PO (10:19)
--- NOTE | 2024-11-11 10:22 | DVHDS2 ---
Discharge Summary Date of Admission Nov 08, 2024 at 19:25 Date of Discharge: Nov 11, 2024 Admitting Diagnosis Toxic Encephalopathy Labs/Diagnostic Data: Laboratory Results Test 11/10/24 06:19 11/09/24 17:53 11/08/24 20:23 White Blood Count 8.1 10^3/uL (4.4-10.8) Red Blood Count 4.97 10^6/uL (4.0-5.20) Hemoglobin 15.6 g/dL (12.2-16.2) Hematocrit 45.3 % (36.0-46.0) Mean Corpuscular Volume 91.1 fL (80.0-100.0) Mean Corpuscular Hemoglobin 31.4 pg (28.0-32.0) Mean Corpuscular Hemoglobin Concent 34.5 g/dL (32.0-36.0) Red Cell Distribution Width 12.9 % (11.8-14.3) Platelet Count 260 10^3/uL (140-450) Mean Platelet Volume 7.8 fL (6.9-10.8) Neutrophils (%) (Auto) 62.4 % (37.0-80.0) Lymphocytes (%) (Auto) 29.4 % (10.0-50.0) Monocytes (%) (Auto) 6.5 % (0.0-12.0) Eosinophils (%) (Auto) 0.9 % (0.0-7.0) Basophils (%) (Auto) 0.8 % (0.0-2.0) Neutrophils # (Auto) 5.1 10 ^3/uL (1.6-8.6) Lymphocytes # (Auto) 2.4 10 ^3/uL (0.4-5.4) Monocytes # (Auto) 0.5 10 ^3/uL (0-1.3) Eosinophils # (Auto) 0.1 10 ^3/uL (0-0.8) Basophils # (Auto) 0.1 10 ^3/uL (0-0.2) Nucleated Red Blood Cells 0.1 % Sodium Level 142 mmol/L (136-145) Potassium Level 3.8 mmol/L (3.5-5.1) Chloride Level 105 mmol/L (98-107) Carbon Dioxide Level 27 mmol/L (20-31) Anion Gap 10 (5-15) Blood Urea Nitrogen 11 mg/dL (9-23) Creatinine 0.94 mg/dL (0.550-1.02) Glomerular Filtration Rate Calc 69 mL/min (>90) BUN/Creatinine Ratio 11.7 (10.0-20.0) Serum Glucose 89 mg/dL (74-106) Calcium Level 10.5 mg/dL (8.7-10.4) Phosphorus Level 3.6 mg/dL (2.4-5.1) Magnesium Level 2.3 mg/dL (1.6-2.6) Total Bilirubin 1.3 mg/dL (0.2-1.0) Aspartate Amino Transferase (AST) 11 U/L (<34) Alanine Aminotransferase (ALT) 10 U/L (7-40) Alkaline Phosphatase 78 U/L (46-116) Total Protein 7.7 g/dL (5.7-8.2) Albumin 5.1 g/dL (3.2-4.8) Urine Color Colorless (Yellow) Urine Clarity Turbid (Clear) Urine pH 6.0 (5.0-9.0) Urine Specific [place] 1.005 (1.001-1.035) Urine Protein Negative (Negative) Urine Ketones Trace (Negative) Urine Blood Negative /uL (Negative) Urine Nitrite Negative (Negative) Urine Bilirubin Negative (Negative) Urine Urobilinogen Normal mg/dL (Negative) Urine Leukocyte Esterase 3+ /uL (Negative) Urine RBC <1 /hpf (0 - 4) Urine Microscopic WBC 117 /HPF (0-5) Urine Squamous Epithelial Cells Few /hpf (<5) Urine Bacteria Many /hpf (None Seen) Urine Glucose Normal mg/dL (Normal) Urine Opiates Screen Neg (NEGATIVE) Urine Fentanyl Screen Neg (NEGATIVE) Urine Barbiturates Screen Neg (NEGATIVE) Urine Phencyclidine Screen Neg (NEGATIVE) Urine Amphetamines Screen Neg (NEGATIVE) Urine Benzodiazepines Screen Neg (NEGATIVE) Urine Cocaine Screen Neg (NEGATIVE) Urine Cannabinoids Screen Neg (NEGATIVE) POC Glucose 133 mg/dl (70-106) Other Laboratory Tests 11/10/24 06:19 Brief Hx & Hospital Course: Ms. Hauser is a 64-year-old right-handed female with a history of hypertension and anxiety disorder. The patient into the hospital in 11/08/2024 with a chief complaint of seizure, at this time, she is alert, oriented x3, but not a good historian She is not aware what happened to her, she remember going to the bed the night prior, but the next memory was waking up in the hospital. according to ER note, the patient was found on the floor by her roommate, awake but not able to answer questions. When EMS came over, the patient was able to follow commands but was nonverbal She has a seizure disorder since 2002, she has company amnesia about her seizure symptoms, She has two type of seizures, in one of them, feels generalized tonic- clonic activity, which only happens once a while, she did not have one in 2023, and this was only one since 2024. The other type seizure was spells event where she become nonresponsive, spacing out briefly with complete amnesia. She does not know how often this happens, but she believes it is a happened quite frequently She sees a local neurologist, she is on Keppra 1000 mg b.i.d., Vimpat 150 mg b.i.d., lamotrigine 200 mg b.i.d.. She reports good compliance Patient was also found to have a UTI, no seizure episodes in the hospital. Patient will be discharged home with Keflex for UTI and followup with [facility]. Condition at Discharge: Poor Final Diagnosis/Problems List # Toxic Encephalopathy - Neuro Cx noted # Acute Cystitis - Keflex # Seizure Disorder - Cont Meds # Dementia? Discharge Disposition: Home Discharge Instruct/Medications Diet: Regular Activity: See Comment Activity comment: No driving or operating heavy machinery Follow Up/Referral: DC clinic Medications: Keflex Discharge Statement: "Patient was advised to return to the ER or call 911 if any headaches, dizziness, shortness of breath, chest pain, abdominal pain, bleeding, fevers, or worsening of medical condition. Patient was counseled about treatment plan, medications, possible side effects, patientverbalized understanding. All questions were answered to the best of my ability. This discharge took greater then 30 minutes in planning, reviewing documentation, counseling the patient, and discussing with other team members." ASSESSMENT ASSESSMENT Assessment Date of Service: Nov 11, 2024 Billing Provider: JULIUS RILEY MD Common Visit Codes: 52254-QPB/OBS DISCH DAY >30min JULIUS RILEY MD Nov 11, 2024 10:22
[2024-11-11 11:17] VITALS: BP 105/45; TEMP 37
[2024-11-11 12:38] VITALS: BP 102/57; PULSE 91; RESP 20; TEMP 98.8; O2SAT 93
== END 2024-11-11 14:40 | disposition home or self-care (01) | DRG 463 ==
LOC: ER 14:01 → EDBD 14:01 → OVERFLOW 19:25 → WEST WING 23:43
PROVIDERS: ADMIT Internal Medicine; ATTEND Internal Medicine
DX: N30.00 Acute cystitis without hematuria (principal); G92.9 Unspecified toxic encephalopathy; G40.409 Other generalized epilepsy and epileptic syndromes, not intractable, without status epilepticus; E78.5 Hyperlipidemia, unspecified; F17.210 Nicotine dependence, cigarettes, uncomplicated; I12.9 Hypertensive chronic kidney disease with stage 1 through stage 4 chronic kidney disease, or unspecified chronic kidney disease; N18.9 Chronic kidney disease, unspecified; F32.A Depression, unspecified; F41.9 Anxiety disorder, unspecified; Z79.899 Other long term (current) drug therapy; Z82.3 Family history of stroke; Z82.49 Family history of ischemic heart disease and other diseases of the circulatory system; Z91.81 History of falling
CPT/HCPCS: 36415; 70450; 80048; 80053; 80307; 81001; 82962; 83735; 84100; 85025; 93005; 99291; G0378

== ENCOUNTER 2024-11-12 10:25 | Emergency (ER) | payer MEDICAID, OTHER ==
[~2024-11-12] VITALS: Ht 172.7 cm; Wt 75.0 kg
[~2024-11-12 10:25] MED LIST changes: -ACET500T58 PO; -ALBU108A5 IN; -ALBU1AER4 IN; -ALPR1TAB2 PO; -ALPR2TAB6 PO; -BENZ200C64 PO; +CEPH250C PO; -FENO145T27 PO; -HYDR-4798 PO; -KEP500T PO; -LACO10SO3 PO; -LAMO200T2 PO; -MECL12.586 PO; -MEMA1TAB3 PO; -PROM1SOL4 PO
--- NOTE | 2024-11-12 10:42 | ED.PDOC ---
History of Present Illness HPI Comments 64-year-old female brought in by EMS presents with a chief complaint of dizziness and nausea. Patient was just discharged yesterday after being inpatient for 2 days upstairs. Patient is now complaining of dizziness and some nausea. Patient is not actively vomiting. Patient was hypertensive at 188 systolic for EMS. No other symptoms or modifying factors present at this time. 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 Past Medical History PAST MEDICAL HISTORY: Denies Surgical History: Denies all surgeries NUMERICAL CONTROL LATHE OPERATOR History: No Pertinent NUMERICAL CONTROL LATHE OPERATOR History Family History Family History: Reviewed,noncontributory to illness Social History Smoker: Non-Smoker Alcohol: Denies ETOH Use Drugs: Denies Drug Use Lives In: Home Constitutional: denies: chills, diaphoresis, fatigue, fever, malaise, sweats, weakness, others EENTM: denies: blurred vision, double vision, ear bleeding, ear discharge, ear drainage, ear pain, ear ringing, eye pain, eye redness, hearing loss, mouth pain, mouth swelling, nasal discharge, nose bleeding, nose congestion, nose pain, photophobia, tearing, throat pain, throat swelling, voice changes, others Respiratory: denies: cough, hemoptysis, orthopnea, SOB at rest, shortness of breath, SOB with excertion, stridor, wheezing, others Cardiovascular: denies: chest pain, dizzy spells, diaphoresis, Dyspnea on exertion, edema, irregular heart beat, left arm pain, lightheadedness, palpitations, PND, syncope, others Gastrointestinal: reports: nausea; denies: abdomen distended, abdominal pain, blood streaked bowels, constipated, diarrhea, dysphagia, difficulty swallowing, hematemesis, melena, poor appetite, poor fluid intake, rectal bleeding, rectal pain, vomiting, others Genitourinary: denies: abnormal vagina bleeding, burning, dyspareunia, dysuria, flank pain, frequency, hematuria, incontinence, pain, , vagina discharge, urgency, others Neurological: reports: dizziness; denies: fainting, headache, left sided numbness, left sided weakness, numbness, paresthesia, pre-existing deficit, right sided numbness, right sided weakness, seizure, speech problems, tingling, tremors, weakness, others Musculoskeletal: denies: back pain, gout, joint pain, joint swelling, muscle pain, muscle stiffness, neck pain, others Integumetry: denies: bruises, change in color, change in hair/nails, dryness, laceration, lesions, lumps, rash, wounds, others Allergic/Immunocompromised: denies: Difficulty Healing, Frequent Infections, Hives, Itching, others Hematologic/Lymphatic: denies: anemia, blood clots, easy bleeding, easy bruising, swollen glands, others Endocrine: denies: excessive hunger, excessive sweating, excessive thirst, excessive urination, flushing, intolerance to cold, intolerance to heat, unexplained weight gain, unexplained weight loss, others Psychiatric: denies: anxiety, bipolar disorder, depression, hopeless, panic disorder, schizophrenia, sleepless, suicidal, others All Other Systems: Reviewed and Negative Physical Exam General Appearance: Moderate Distress, Normal HEENT: Normal ENT Inspection, Pharynx Normal, TMs Normal Neck: Full Range of Motion, Non-Tender, Normal, Normal Inspection Respiratory: Chest Non-Tender, Lungs Clear, No Accessory Muscle Use, No Respiratory Distress, Normal Breath Sounds Cardiovascular: No Edema, No JVD, No Murmur, No Gallop, Normal Peripheral Pulses, Regular Rate/Rhythm Breast Exam: Deferred Gastrointestinal: No Organomegaly, Non Tender, No Pulsatile Mass, Normal Bowel Sounds, Soft Genitalia: Deferred Pelvic: Deferred Rectal: Deferred Extremities: No calf tenderness, Normal capillary refill, Normal inspection, Normal range of motion, Non-tender, No pedal edema Musculoskeletal : Apperance: Normal Neurologic: Alert, automobile sales representative II-XII nml as Tested, No Motor Deficits, Normal Affect, Normal Mood, No Sensory Deficits Cerebellar Function: Normal Reflexes: Normal Skin: Dry, Normal Color, Warm Peripheral Pulses: 3+ Radial (R), 3+ Radial (L) Lymphatic: No Adenopathy Was a procedure done? Was a procedure done?: No Differential Dx Considerations may include: Autonomic disorder X-Ray, Labs, Meds, VS Vital Signs Date Time Temp Pulse Resp B/P (MAP) Pulse Ox O2 Delivery O2 Flow Rate FiO2 11/12/24 11:34 98.0 95 18 120/76 (91) 98 98.0 11/12/24 10:47 96 16 94 Room Air 11/12/24 10:47 97.7 96 16 116/72 (87) 94 97.7 11/12/24 10:30 98.6 92 16 138/85 (102) 96 98.6 Patient alert. Vitals stable. Was recently discharged from this hospital. Answering all questions. No sign of any distress. Reviewed her previous visit. No leg swelling. Saturation pristine on room air. Abdomen is soft. Explained to the patient. Was told to follow up with her primary care physician. Was told to come back if there is any problem. Time of 1ST Reevaluation: 10:40 Reevaluation 1ST: Improved Patient Education/Counseling: Diagnosis, Treatment, Prognosis Family Education/Counseling: No Family Present SEPSIS Sepsis Screen Physician Orders Troponin-I Hs (11/12/24 11:51) Complete Blood Count (11/12/24 11:51) Urinalysis (11/12/24 11:51) Basic Metabolic Panel (11/12/24 11:51) Vital Signs Date Time Temp Pulse Resp B/P (MAP) Pulse Ox O2 Delivery O2 Flow Rate FiO2 11/12/24 11:34 98.0 95 18 120/76 (91) 98 98.0 11/12/24 10:47 96 16 94 Room Air 11/12/24 10:47 97.7 96 16 116/72 (87) 94 97.7 11/12/24 10:30 98.6 92 16 138/85 (102) 96 98.6 Departure 1 Departure Time of Disposition: 12:12 Impression: Primary Impression: Autonomic disorder Disposition: 01 HOME / SELF CARE / HOMELESS Condition: Good Discharged With: Self Critical Care Note Critical Care Time?: No Stability Stability form required: No Heart Score Heart Score: Heart Score Response (Comments) Value History N/A 0 EKG N/A 0 Age N/A 0 Risk Factors N/A 0 Troponin N/A 0 Total 0 I personally scribed for CASSIE SANTIAGO MD ([email or web address]) on 11/12/24 at 10:42. Electronically submitted by Mark Truong ([email or web address]). CASSIE SANTIAGO MD Nov 12, 2024 10:42
[2024-11-12 11:34] VITALS: BP 120/76; PULSE 95; RESP 18; TEMP 98; O2SAT 98
[2024-11-12 12:25] LABS: Basophils # (auto) 0 10 ^3/uL (0-0.2); Basophils % (auto) 0.2 % (0.0-2.0); Eosinophils # (auto) 0.2 10 ^3/uL (0-0.8); Eosinophils % (auto) 1.4 % (0.0-7.0); Hematocrit 44.7 % (36.0-46.0); Hemoglobin 15.1 g/dL (12.2-16.2); Lymphocytes # (auto) 1.2 10 ^3/uL (0.4-5.4); Mean Corpuscular Hgb Conc. 33.7 g/dL (32.0-36.0); Mean Corpuscular Volume 91.8 fL (80.0-100.0); Monocytes # (auto) 0.5 10 ^3/uL (0-1.3); Monocytes % (auto) 3.4 % (0.0-12.0); Platelet Count (auto) 329 10^3/uL (140-450); Red Blood Cells 4.87 10^6/uL (4.0-5.20); Red Cell Distribution Width 12.9 % (11.8-14.3)
[2024-11-12 12:38] LABS: Chloride 104 mmol/L (98-107); Sodium 138 mmol/L (136-145)
[2024-11-12 12:39] LABS: Anion Gap 14 (5-15); Carbon Dioxide 20 mmol/L (20-31)
[2024-11-12 12:42] LABS: Potassium 3.5 mmol/L (3.5-5.1)
[2024-11-12 12:44] LABS: Glucose 179 mg/dL (74-106)
[2024-11-12 13:02] LABS: BUN/Creatinine Ratio 13.8 (10.0-20.0); Blood Urea Nitrogen 15 mg/dL (9-23)
== END 2024-11-12 12:27 | disposition home or self-care (01) ==
LOC: EDUNIT# 10:25 → ER 10:25 → EDBD 10:25 → ER 12:27
DX: G90.9 Disorder of the autonomic nervous system, unspecified (principal)
CPT/HCPCS: 36415; 80048; 84484; 85025

== ENCOUNTER 2024-11-13 21:10 | Emergency (ER) | payer MEDICAID, OTHER ==
[~2024-11-13] VITALS: Ht 172.7 cm; Wt 75.0 kg
[2024-11-13 21:15] VITALS: BP 137/81; RESP 17; TEMP 98.2; O2SAT 98
[2024-11-13 21:30] VITALS: PULSE 86
--- NOTE | 2024-11-13 22:53 | ED.PDOC ---
History of Present Illness HPI Comments 64 y/o F is BIBA for c/o generalized weakness and room spinning dizziness. Per EMS report, patient endorses on unprovoked onset, this evening. She states on being unable able to get up herself and move. Significant medical history of seizures and vertigo in addition to recent ED visit for same complaint on . No chest pain, shortness of breath, headache, nausea, vomiting, or further associated symptoms reported at this time. Chief Complaint: General Weakness Time Seen by MD: 21:30 Reviewed Notes: Nurses Notes, Medications, Allergies Allergies: Coded Allergies: Lidocaine (Verified Allergy, Unknown, 09/03/15) Home Meds Active Scripts Cephalexin (KEFLEX CAPSULE) 250 Mg Cp, 500 MG PO TID for 5 Days, #15 CAP Prov:JULIUS RILEY MD 11/11/24 Reported Medications Lisinopril (Lisinopril) 10 Mg Tab, 10 MG PO DAILY for 30 Days, MG 01/01/24 Levetiracetam (Keppra) 500 Mg Tab, 1000 MG PO BID for 30 Days, MG 05/11/17 Lamotrigine (Lamotrigine) 200 Mg Tab, 200 MG PO BID 03/16/12 Lacosamide (Vimpat) 100 Mg Tab, 100 MG PO BID 03/16/12 Information Source: Patient, Emergency Med Personnel Mode of Arrival: EMS Severity: Moderate Timing: Hours Duration: Since onset Prehospital treatment: 12 Lead EKG, Accucheck, Stonecutter Past Medical History PAST MEDICAL HISTORY: Anxiety, HTN, Seizures, UTI'S (cystitis ) Surgical History: Denies all surgeries PUBLIC RELATIONS WRITER History: Denies all PUBLIC RELATIONS WRITER Hx Family History Family History: Unknown Social History Smoker: Non-Smoker Alcohol: Denies ETOH Use Drugs: Denies Drug Use Lives In: Assisted Care All Other Systems: Reviewed and Negative (Comprehensive review of systems are negative unless otherwise stated in HPI) Physical Exam General Appearance: No Apparent Distress, Normal HEENT: Normal ENT Inspection, Pharynx Normal, TMs Normal Neck: Full Range of Motion, Non-Tender, Normal, Normal Inspection Respiratory: Chest Non-Tender, Lungs Clear, No Accessory Muscle Use, No Respiratory Distress, Normal Breath Sounds Cardiovascular: No Edema, No JVD, No Murmur, No Gallop, Normal Peripheral Pulses, Regular Rate/Rhythm Breast Exam: Deferred Gastrointestinal: No Organomegaly, Non Tender, No Pulsatile Mass, Normal Bowel Sounds, Soft Genitalia: Deferred Pelvic: Deferred Rectal: Deferred Extremities: No calf tenderness, Normal capillary refill, Normal inspection, Normal range of motion, Non-tender, No pedal edema Musculoskeletal : Apperance: Normal Neurologic: Alert, firefighter type one II-XII nml as Tested, No Motor Deficits, Normal Affect, Normal Mood, No Sensory Deficits Cerebellar Function: Normal Reflexes: Normal Skin: Dry, Normal Color, Warm Lymphatic: No Adenopathy Was a procedure done? Was a procedure done?: No Differential Dx Considerations may include: vertigo, viral syndrome, electrolyte imbalance, dehydration, among others X-Ray, Labs, Meds, VS Vital Signs Date Time Temp Pulse Resp B/P (MAP) Pulse Ox O2 Delivery O2 Flow Rate FiO2 11/13/24 21:30 86 11/13/24 21:15 98.2 84 17 137/81 (99) 98 98.2 Lab Test 11/13/24 22:50 Range/Units White Blood Count 11.0 #H 4.4-10.8 10^3/uL Red Blood Count 4.62 4.0-5.20 10^6/uL Hemoglobin 14.5 12.2-16.2 g/dL Hematocrit 42.1 36.0-46.0 % Mean Corpuscular Volume 91.0 80.0-100.0 fL Mean Corpuscular Hemoglobin 31.4 28.0-32.0 pg Mean Corpuscular Hemoglobin Concent 34.5 32.0-36.0 g/dL Red Cell Distribution Width 12.9 11.8-14.3 % Platelet Count 298 140-450 10^3/uL Mean Platelet Volume 8.4 6.9-10.8 fL Neutrophils (%) (Auto) 85.5 H 37.0-80.0 % Lymphocytes (%) (Auto) 9.6 L 10.0-50.0 % Monocytes (%) (Auto) 2.5 0.0-12.0 % Eosinophils (%) (Auto) 2.1 0.0-7.0 % Basophils (%) (Auto) 0.3 0.0-2.0 % Neutrophils # (Auto) 9.4 H 1.6-8.6 10 ^3/uL Lymphocytes # (Auto) 1.1 0.4-5.4 10 ^3/uL Monocytes # (Auto) 0.3 0-1.3 10 ^3/uL Eosinophils # (Auto) 0.2 0-0.8 10 ^3/uL Basophils # (Auto) 0 0-0.2 10 ^3/uL Nucleated Red Blood Cells 0.0 % Sodium Level 142 136-145 mmol/L Potassium Level 3.7 3.5-5.1 mmol/L Chloride Level 105 98-107 mmol/L Carbon Dioxide Level 27 20-31 mmol/L Anion Gap 10 5-15 Blood Urea Nitrogen 13 9-23 mg/dL Creatinine 1.01 0.550-1.02 mg/dL Glomerular Filtration Rate Calc 63 >90 mL/min BUN/Creatinine Ratio 12.9 10.0-20.0 Serum Glucose 125 H 74-106 mg/dL Calcium Level 9.7 8.7-10.4 mg/dL [place] [id number] Ph: [phone] DIAGNOSTIC IMAGING Diagnostic Imaging Report : [id number] Signed PATIENT: OTTONIEL RIVERA ACCT: [id number] UNIT: [id number] : 1960 LOC: ER ROOM / BED: / AGE / SEX: 64 / F ADM STATUS: REG ER SERVICE 34 ORDERING PHYSICIAN: REILLY ALVAREZ MD PROCEDURE(s): CXRP - CHEST PORTABLE REASON: weakness ORDER NUMBER(s): [id number], ACCESSION NUMBER(s): [id number] CHEST RADIOGRAPH Indication: weakness Technique: Single frontal view of the chest was obtained COMPARISON: XY CHEST PORTABLE on DOS: 05/28/24, XY CHEST PORTABLE on DOS: 04/25/24 FINDINGS: Lines and Tubes: None Lungs: Clear Pleura: No effusion. No pneumothorax. Cardiomediastinal contours: Unremarkable Bones: Unremarkable IMPRESSION: 1. No acute disease. ATED BY: TUAN NOVAK MD DICTATED DATE/TIME: 11/13/242345 SIGNED BY: TUAN NOVAK MD SIGNED DATE/TIME: 11/13/242345 CC: Time of 1ST Reevaluation: 23:29 Reevaluation 1ST: Resolved Patient Education/Counseling: Diagnosis, Treatment, Prognosis, Need For Follow Up Family Education/Counseling: No Family Present Comments pt is resting comfortably, sitting in the lobby. she has ambulated without trouble. the workup is again, unremarkable. she is stable for discharge Additional Information Other visits reviewed: November 12, 2024 encounter for autonomic disorder. Tests ordered: CXR, UA, BMP, CBC, EKG Additional personnel interviewed: EMS Agreement with results interpreted by other providers: CXR Disclosure of medical information to: patient SEPSIS Sepsis Screen Date sepsis recognized/suspect: Nov 13, 2024 Time Sepsis recognized/suspect: 2114 Recent Procedure: No On Antibiotic Therapy: No Respiratory Rate >20: No Heart Rate >90: No Temp<36 C (96.8 F) or >38.3 C: No SBP <90 or MAP <65 mmHG: No New Acute Mental Status Change: No Is the patient on CPAP, BIPAP,: No Physician Orders Electrocardigram (11/13/24 21:34) Urinalysis (11/13/24 22:35) Chest Portable (11/13/24 22:35) Vital Signs Date Time Temp Pulse Resp B/P (MAP) Pulse Ox O2 Delivery O2 Flow Rate FiO2 11/13/24 21:30 86 11/13/24 21:15 98.2 84 17 137/81 (99) 98 98.2 Laboratory Tests Test 11/13/24 22:50 White Blood Count 11.0 10^3/uL (4.4-10.8) #H Departure 1 Departure Time of Disposition: 23:29 Impression: Primary Impression: Weakness Disposition: 01 HOME / SELF CARE / HOMELESS Condition: Stable Discharged With: Self Critical Care Note Critical Care Time?: No Stability Stability form required: No Heart Score Heart Score: Heart Score Response (Comments) Value History N/A 0 EKG N/A 0 Age N/A 0 Risk Factors N/A 0 Troponin N/A 0 Total 0 I personally scribed for REILLY ALVAREZ MD ([email or web address]) on 11/13/24 at 22:53. Electronically submitted by Lee Mckeon ([email or web address]). I personally scribed for REILLY ALVAREZ MD ([email or web address]) on 11/13/24 at 23:58. Electronically submitted by Lee Mckeon ([email or web address]). REILLY ALVAREZ MD Nov 13, 2024 22:53
[2024-11-13 23:04] LABS: Hematocrit 42.1 % (36.0-46.0); Hemoglobin 14.5 g/dL (12.2-16.2); Mean Corpuscular Hemoglobin 31.4 pg (28.0-32.0); Mean Corpuscular Volume 91.0 fL (80.0-100.0); Nucleated Red Blood Cells % 0.0 %
[2024-11-13 23:12] LABS: Chloride 105 mmol/L (98-107); Potassium 3.7 mmol/L (3.5-5.1); Sodium 142 mmol/L (136-145)
[2024-11-13 23:13] LABS: Anion Gap 10 (5-15); Calcium 9.7 mg/dL (8.7-10.4); Carbon Dioxide 27 mmol/L (20-31)
[2024-11-13 23:18] LABS: BUN/Creatinine Ratio 12.9 (10.0-20.0); Blood Urea Nitrogen 13 mg/dL (9-23); Glucose 125 mg/dL (74-106)
--- NOTE | 2024-11-13 23:49 | DVH ---
CHEST RADIOGRAPH Indication: weakness Technique: Single frontal view of the chest was obtained COMPARISON: XY CHEST PORTABLE on DOS: 05/28/24, XY CHEST PORTABLE on DOS: 04/25/24 FINDINGS: Lines and Tubes: None Lungs: Clear Pleura: No effusion. No pneumothorax. Cardiomediastinal contours: Unremarkable Bones: Unremarkable IMPRESSION: 1. No acute disease.
== END 2024-11-14 02:30 | disposition home or self-care (01) ==
LOC: EDBD 21:10 → ER 21:18 → EDUNIT# 21:18 → ER 11-14 02:30
DX: R53.1 Weakness (principal); R42 Dizziness and giddiness; I10 Essential (primary) hypertension; F41.9 Anxiety disorder, unspecified; Z79.899 Other long term (current) drug therapy; Z88.8 Allergy status to other drugs, medicaments and biological substances
CPT/HCPCS: 36415; 71045; 80048; 82947; 85025

== ENCOUNTER 2025-03-08 11:42 | Emergency (ER) | payer MEDICAID ==
[~2025-03-08] VITALS: Ht 170.2 cm; Wt 84.4 kg
[2025-03-08 11:44] VITALS: BP 161/96; PULSE 88; RESP 18; TEMP 97.7; O2SAT 97
--- NOTE | 2025-03-08 12:36 | DVH ---
XY CHEST TWO VIEWS ROUTINE, HISTORY: COUGH COMPARISON: XY CHEST PORTABLE on DOS: 11/13/24, XY CHEST PORTABLE on DOS: 05/28/24, XY CHEST PORTABLE o n DOS: 04/25/24 XY CHEST PORTABLE on DOS: 11/13/24, XY CHEST PORTABLE on DOS: 05/28/24, XY CHEST PORTABLE on DOS: 04/25 TECHNICAL DATA: 1 view of the chest was obtained. FINDINGS: Lines and tubes: None Cardiomediastinal silhouette: normal Pulmonary vasculature: normal Lung expansion: normal Lung airspace: normal Lung interstitium: normal Pleura: normal Pneumothorax: no Bones: Moderate compression deformity of a mid thoracic vertebral body. Other: no IMPRESSION: No acute intrathoracic abnormality.
[2025-03-08] MEDS ORDERED: PROM1SOL4 PO (12:44)
[2025-03-08] MEDS ORDERED: AZIT500T66 PO (12:44)
--- NOTE | 2025-03-08 12:46 | ED.PDOC ---
SOB-HPI HPI Comments A 65 YEAR OLD FEMALE PRESENTS TO THE ED WITH COMPLAINT OF COUGH AND SORE THROAT. PATIENT STATES SHE HAS BEEN EXPERIENCING A COUGH, CONGESTION, AND SORE THROAT FOR PAST 3 DAYS. PATIENT DENIES FEVER, CHILLS, SHORTNESS OF BREATH, CHEST PAIN, ABDOMINAL PAIN, NAUSEA, VOMITING, HEADACHE, OR OTHER COMPLAINTS. NO OTHER SYMPTOMS OR MODIFYING FACTORS AT THIS TIME. PATIENT IS ALERT, ORIENTED X 4, AND HAS STEADY GAIT. Chief Complaint: Cough Time Seen by MD: 11:52 Primary Care Provider: Ron Reviewed notes: Nurses Notes, Medications, Allergies Information Source: Patient Mode of Arrival: Ambulatory Severity: Moderate Timing: Days Duration: Since onset, Days Context: Spontaneous Onset PE Risk Factors: None History of: None Prehospital treatment: None Modifying Factors: Nothing Associated Signs and Symptoms: Cough, Nasal Congestion, Sore Throat If cough with SOB: Productive Past Medical History PAST MEDICAL HISTORY: Anxiety, HTN, Seizures, UTI'S Surgical History: Denies all surgeries RANCH HELPER History: Denies all RANCH HELPER Hx Family History Family History: Reviewed,noncontributory to illness Social History Smoker: Non-Smoker Alcohol: Denies ETOH Use Drugs: Denies Drug Use Lives In: Assisted Care Constitutional: denies: chills, diaphoresis, fatigue, fever, malaise, sweats, weakness, others EENTM: reports: nose congestion, throat pain; denies: blurred vision, double vi rema, ear bleeding, ear discharge, ear drainage, ear pain, ear ringing, eye pain, eye redness, hearing loss, mouth pain, mouth swelling, nasal discharge, nose bleeding, nose pain, photophobia, tearing, throat swelling, voice changes, others Respiratory: reports: cough; denies: hemoptysis, orthopnea, SOB at rest, shortness of breath, SOB with excertion, stridor, wheezing, others Cardiovascular: denies: chest pain, dizzy spells, diaphoresis, Dyspnea on exertion, edema, irregular heart beat, left arm pain, lightheadedness, palpitations, PND, syncope, others Gastrointestinal: denies: abdomen distended, abdominal pain, blood streaked bowels, constipated, diarrhea, dysphagia, difficulty swallowing, hematemesis, melena, nausea, poor appetite, poor fluid intake, rectal bleeding, rectal pain, vomiting, others Genitourinary: denies: abnormal vagina bleeding, burning, dyspareunia, dysuria, flank pain, frequency, hematuria, incontinence, pain, , vagina discharge, urgency, others Neurological: denies: dizziness, fainting, headache, left sided numbness, left sided weakness, numbness, paresthesia, pre-existing deficit, right sided numbnes s, right sided weakness, seizure, speech problems, tingling, tremors, weakness, others Musculoskeletal: denies: back pain, gout, joint pain, joint swelling, muscle pain, muscle stiffness, neck pain, others Integumetry: denies: bruises, change in color, change in hair/nails, dryness, laceration, lesions, lumps, rash, wounds, others Allergic/Immunocompromised: denies: Difficulty Healing, Frequent Infections, Hives, Itching, others Hematologic/Lymphatic: denies: anemia, blood clots, easy bleeding, easy bruising, swollen glands, others Endocrine: denies: excessive hunger, excessive sweating, excessive thirst, excessive urination, flushing, intolerance to cold, intolerance to heat, unexplained weight gain, unexplained weight loss, others Psychiatric: denies: anxiety, bipolar disorder, depression, hopeless, panic disorder, schizophrenia, sleepless, suicidal, others All Other Systems: Reviewed and Negative Physical Exam General Appearance: No Apparent Distress, Normal HEENT: PERRL/EOMI, Pharyngeal Erythema (ERYTHEMA AND SWELLING ON PHARYNX, NO EXUDATES. ), TMs Normal Neck: Full Range of Motion, Non-Tender, Normal, Normal Inspection Respiratory: Chest Non-Tender, Lungs Clear, No Accessory Muscle Use, No Respiratory Distress, Normal Breath Sounds Cardiovascular: No Edema, No JVD, No Murmur, No Gallop, Normal Peripheral Pulses, Regular Rate/Rhythm Breast Exam: Deferred Gastrointestinal: No Organomegaly, Non Tender, No Pulsatile Mass, Normal Bowel Sounds, Soft Genitalia: Deferred Pelvic: Deferred Rectal: Deferred Extremities: No calf tenderness, Normal capillary refill, Normal inspection, Normal range of motion, Non-tender, No pedal edema Musculoskeletal : Apperance: Normal Neurologic: Alert, industrial plant custodian II-XII nml as Tested, No Motor Deficits, Normal Affect, Normal Mood, No Sensory Deficits Cerebellar Function: Normal Reflexes: Normal Skin: Dry, Normal Color, Warm Peripheral Pulses: 2+ carotid (R), 2+ carotid (L), 2+ dorsalis pedis (R), 2+ dorsalis pedis (L) Lymphatic: No Adenopathy Was a procedure done? Was a procedure done?: No Differential Dx Differential Diagnosis: Bronchitis, Pneumonia, Sinusitis, Allergic Rhinitis, Otitis Media, Pharyngitis, URI X-Ray, Labs, Meds, VS Vital Signs Date Time Temp Pulse Resp B/P (MAP) Pulse Ox O2 Delivery O2 Flow Rate FiO2 03/08/25 11:44 97.7 88 18 161/96 97 97.7 PATIENT: OTTONIEL RIVERA JACCT: [id number]: [id number] : 1960 LOC: ER ROOM / BED: / AGE / SEX: 65 / F ADM STATUS: REG ER SERVICE 1200 ORDERING PHYSICIAN: MARGE GARSIA PROCEDURE(s): CXR2 - CHEST TWO VIEWS ROUTINE REASON: COUGH ORDER NUMBER(s): [id number], ACCESSION NUMBER(s): [id number] XY CHEST TWO VIEWS ROUTINE, HISTORY: COUGH COMPARISON: XY CHEST PORTABLE on DOS: 11/13/24, XY CHEST PORTABLE on DOS: 05/28/24, XY CHEST PORTABLE on DOS: 04/25/24 XY CHEST PORTABLE on DOS: 11/13/24, XY CHEST PORTABLE on DOS: 05/28/24, XY CHEST PORTABLE on DOS: 04/25/24 TECHNICAL DATA: 1 view of the chest was obtained. FINDINGS: Lines and tubes: None Cardiomediastinal silhouette: normal Pulmonary vasculature: normal Lung expansion: normal Lung airspace: normal Lung interstitium: normal Pleura: normal Pneumothorax: no Bones: Moderate compression deformity of a mid thoracic vertebral body. Other: no IMPRESSION: No acute intrathoracic abnormality. ATED BY: EDUARDO SABILLON MD DICTATED DATE/TIME: 03/08/25 123 SIGNED BY: EDUARDO SABILLON MD SIGNED DATE/TIME: 03/08/251233 CC: X-Ray, Labs, Meds, VS Comment EXTERNAL MEDICAL RECORDS REVIEWED: [NONE] INDEPENDENT HISTORIANS: [NONE] SOCIAL DETERMINANTS OF HEALTH: [NONE] LABS ORDERED: NONE REVIEWED AND INTERPRETED RESULTS: NONE IMAGING ORDERED: XR CHEST TREATMENTS ORDERED: NONE PROCEDURES PERFORMED: NONE CRITICAL CARE TIME: NONE I HAVE DISCUSSED THE PATIENT WITH THE ATTENDING PHYSICIAN DR. SANTIAGO AND HE AGREES WITH THE PATIENT'S PLAN OF CARE AND DISPOSITION. BASED ON HISTORY OF PRESENT ILLNESS, AND PHYSICAL EXAM, PATIENT WILL BE DISCHARGED HOME. DISCUSSED PLAN FOR DISCHARGE HOME WITH RX [AZITHROMYCIN AND PHENERGAN DM]. MEDICATION WARNINGS GIVEN. SHARED DECISION MAKING: DISCUSSED WITH PATIENT THAT THEIR WORKUP WAS NORMAL. PATIENT INSTRUCTED TO FOLLOW UP WITH PRIMARY CARE PROVIDER IN 1-2 DAYS FOR RE- EVALUATION OF SYMPTOMS. PATIENT VERBALIZES UNDERSTANDING TO RETURN TO ED FOR NEW OR WORSENING SYMPTOMS OR IF FOLLOW UP WITH PCP CANNOT BE OBTAINED. PATIENT FEELS COMFORTABLE GOING HOME AT THIS TIME. ALL QUESTIONS ADDRESSED AT TIME OF DISCHARGE. Images Reviewed?: Images reviewed and evaluated by me Time of 1ST Reevaluation: 13:24 Reevaluation 1ST: Improved Patient Education/Counseling: Diagnosis, Treatment, Need For Follow Up Family Education/Counseling: Diagnosis, Treatment, Need For Follow Up Medical Screening: No EMC Exist At This Time SEPSIS Sepsis Screen Date sepsis recognized/suspect: Mar 08, 2025 Time Sepsis recognized/suspect: 1145 Recent Procedure: No On Antibiotic Therapy: No Respiratory Rate >20: No Heart Rate >90: No Temp<36 C (96.8 F) or >38.3 C: No SBP <90 or MAP <65 mmHG: No New Acute Mental Status Change: No Is the patient on CPAP, BIPAP,: No Physician Orders Chest Two Views Routine (03/08/25 12:00) Vital Signs Date Time Temp Pulse Resp B/P (MAP) Pulse Ox O2 Delivery O2 Flow Rate FiO2 03/08/25 11:44 97.7 88 18 161/96 97 97.7 Departure 1 Departure Time of Disposition: 13:24 Impression: Primary Impression: Acute pharyngitis Qualified Codes: J02.9 - Acute pharyngitis, unspecified Additional Impression: Upper respiratory infection Qualified Codes: J02.9 - Acute pharyngitis, unspecified Disposition: HOME / SELF CARE / HOMELESS Condition: Stable Additional Instructions: F/U PCP IN 2 DAYS RECHECK. IF CONDITION BECOME WORSE, RETURN TO ED IQRA. e-Prescriptions Promethazine-Dm (Promethazine Dm 6.25-15 mg/5Ml) 1 Alexa Alexa 5 ML PO TID, #160 ML Prov: MARGE GARSIA 03/08/25 Azithromycin (Azithromycin) 500 Mg Tab 1 TAB PO DAILY, #5 TAB Prov: MARGE GARSIA 03/08/25 Discharged With: Self Critical Care Note Critical Care Time?: No Stability Stability form required: No Heart Score Heart Score: Heart Score Response (Comments) Value History N/A 0 EKG N/A 0 Age N/A 0 Risk Factors N/A 0 Troponin N/A 0 Total 0 I personally scribed for MARGE GARSIA ([email or web address]) on 03/08/25 at 13:03. Electronically submitted by Tyler Kulkarni ([email or web address]). MARGE GARSIA Mar 08, 2025 12:46
== END 2025-03-08 13:06 | disposition home or self-care (01) ==
LOC: ER 11:42
DX: J02.9 Acute pharyngitis, unspecified (principal); I10 Essential (primary) hypertension; F41.9 Anxiety disorder, unspecified; Z87.440 Personal history of urinary (tract) infections; Z98.890 Other specified postprocedural states
CPT/HCPCS: 71046

== ENCOUNTER 2025-03-11 19:15 | Emergency (ER) | payer MEDICAID ==
[~2025-03-11] VITALS: Ht 170.2 cm; Wt 81.8 kg
[~2025-03-11 19:15] MED LIST changes: +AZIT500T66 PO; +PROM1SOL4 PO
[2025-03-11 20:30] LABS: Hematocrit 41.3 % (36.0-46.0); Hemoglobin 14.3 g/dL (12.2-16.2); Mean Corpuscular Hemoglobin 32.3 pg (28.0-32.0); Mean Corpuscular Volume 93.0 fL (80.0-100.0); Nucleated Red Blood Cells % 0.2 %
[2025-03-11 20:45] LABS: Alanine Aminotransferase 15 U/L (7-40); Alkaline Phosphatase 76 U/L (46-116); Anion Gap 12 (5-15); BUN/Creatinine Ratio 9.6 (10.0-20.0); Bilirubin, Total 0.7 mg/dL (0.2-1.0); Calcium 9.5 mg/dL (8.7-10.4); Carbon Dioxide 24 mmol/L (20-31); Chloride 105 mmol/L (98-107); Glucose 92 mg/dL (74-106); Sodium 141 mmol/L (136-145); Total Protein 8.1 g/dL (5.7-8.2)
[2025-03-11 20:47] LABS: Albumin 5.0 g/dL (3.2-4.8); Blood Urea Nitrogen 8 mg/dL (9-23); Potassium 3.5 mmol/L (3.5-5.1)
--- NOTE | 2025-03-11 20:50 | ED.PDOC ---
History of Present Illness HPI Comments 65 y/o F presents with c/c of nonproductive cough x2 days. Patient reports on returning to the ED after being seen and prescribed Azithromycin during her last ED visit 2x days ago. She comments on having associated choking sensation whenever having said coughing fits and feeling nauseated and having diarrhea, currently. Patient also mentions on having a recent seizure on 03/08/25 and having a history of seizures, vertigo, and hypertension. Denies any recent sick contact, injuries, stressors, strenuous activities, travel, or further pertinent medical history. Denies any chest pain, shortness of breath, wheezing, or further acute symptoms. REVIEW OF SYSTEMS: General: No fever, no chills, or fatigue HEENT: No sore throat, no earache, no congestion, no neck pain. Cardiac: No chest pain. No palpitations. Lungs: Cough. No shortness of breath GI: Nausea, diarrhea, no constipation, no abdominal pain : No dysuria, frequency, or urgency. No hematuria. Musculoskeletal: No joint pain , no joint swelling, no extremity edema. Skin: No rash, no itching. Neuro: No headache, no dizziness, no weakness PHYSICAL EXAM: General: Awake, alert and oriented. No acute distress. Skin: Skin in warm, dry and intact. Appropriate color for ethnicity. HEENT: The head is normocephalic and atraumatic. Conjunctivae are clear without exudates or hemorrhage. Sclera is non-icteric. EOM are intact. No signs of nystagmus. Eyelids are normal in appearance without swelling or lesions. Oral mucosa is pink and moist Neck: The neck is supple with normal range of motion. No JVD. Cardiac: Heart rate and rhythm are normal. No murmurs, gallops, or rubs are auscultated. Respiratory: Dry cough. No signs of respiratory distress. Lung sounds are clear in all lobes bilaterally without rales, rhonchi, or wheezes. Abdominal: Abdomen is soft, non-tender without distention, guarding or rigidity. Bowel sounds are present and normoactive in all four quadrants. Extremities: Upper and lower extremities are atraumatic in appearance without deformity or edema. Neurological: The patient is awake, alert and oriented to person, place, and time with normal speech. Speech is clear. There is no facial asymmetry. Psychiatric: Appropriate mood and affect. Good judgement and insight. Chief Complaint: Shortness of Breath Time Seen by MD: 20:30 Primary Care Provider: Ron Reviewed Notes: Nurses Notes, Medications, Allergies Allergies: Coded Allergies: Lidocaine (Verified Allergy, Unknown, 09/03/15) Home Meds Active Scripts Albuterol Sulfate (VENTOLIN MDI) 90 Mcg Ih, 90 MCG IN QIDPRN for 5 Days, #1 INH Prov:DILCIA KRUEGER MD 03/11/25 Promethazine-Dm (Promethazine Dm 6.25-15 mg/5Ml) 1 Alexa Alexa, 5 ML PO TID, #160 ML Prov:MARGE GARSIA 03/08/25 Azithromycin (Azithromycin) 500 Mg Tab, 1 TAB PO DAILY, #5 TAB Prov:MARGE GARSIA 03/08/25 Cephalexin (KEFLEX CAPSULE) 250 Mg Cp, 500 MG PO TID for 5 Days, #15 CAP Prov:JULIUS RILEY MD 11/11/24 Reported Medications Lisinopril (Lisinopril) 10 Mg Tab, 10 MG PO DAILY for 30 Days, MG 01/01/24 Levetiracetam (Keppra) 500 Mg Tab, 1000 MG PO BID for 30 Days, MG 05/11/17 Lamotrigine (Lamotrigine) 200 Mg Tab, 200 MG PO BID 03/16/12 Lacosamide (Vimpat) 100 Mg Tab, 100 MG PO BID 03/16/12 Discontinued Scripts Promethazine-Dm (Promethazine Dm 6.25-15 mg/5Ml) 1 Alexa Alexa, 5 ML PO TID, #160 ML Prov:MARGE GARSIA 03/08/25 Azithromycin (Azithromycin) 500 Mg Tab, 1 TAB PO DAILY, #5 TAB Prov:MARGE GARSIA 03/08/25 Information Source: Patient Mode of Arrival: Wheelchair Severity: Moderate Timing: Days Duration: Since onset Prehospital treatment: None Past Medical History PAST MEDICAL HISTORY: Anxiety, HTN, Seizures, UTI'S Past Medical History (Other): Vertigo Surgical History: Denies all surgeries MAINTAINER CENTRAL OFFICE History: Denies all MAINTAINER CENTRAL OFFICE Hx Family History Family History: Reviewed,noncontributory to illness Social History Smoker: Non-Smoker Alcohol: Denies ETOH Use Drugs: Denies Drug Use Lives In: Assisted Care Was a procedure done? Was a procedure done?: No Differential Dx Considerations may include: Differential diagnoses considered includebut arenot limited to acute Bronchitis, Asthma, COPD, Pneumothorax, PE, CHF, Pulmonary HTN, Anemia, CO Poisoning, Methemoglobinemia, Hyperventilation, Metabolic Acidosis, Pulmonary Edema, Pneumonia, ACS, Pericardial Tamponade, Anxiety, other X-Ray, Labs, Meds, VS Vital Signs Date Time Temp Pulse Resp B/P (MAP) Pulse Ox O2 Delivery O2 Flow Rate FiO2 03/11/25 22:42 18 97 Room Air* 0 21 03/11/25 21:11 99 18 98 Room Air* 0 21 03/11/25 21:05 99.2 99 18 115/80 (92) 95 99.2 03/11/25 19:17 98.9 99 20 153/99 97 98.9 Lab Test 03/11/25 21:52 03/11/25 21:06 03/11/25 19:56 Range/Units Urine Color Yellow Yellow Urine Clarity Clear Clear Urine pH 5.5 5.0-9.0 Urine Specific [place] 1.033 1.001-1.035 Urine Protein 1+ H Negative Urine Ketones 2+ H Negative Urine Blood 1+ H Negative /uL Urine Nitrite Negative Negative Urine Bilirubin Negative Negative Urine Urobilinogen Normal Negative mg/dL Urine Leukocyte Esterase 2+ Negative /uL Urine RBC 3 0 - 4 /hpf Urine Microscopic WBC 3 0-5 /HPF Urine Squamous Epithelial Cells Few <5 /hpf Urine Bacteria None seen None Seen /hpf Urine Mucus Few None Seen Urine Glucose Normal Normal mg/dL Influenza Type A Antigen Negative Negative Influenza Type B Antigen Negative Negative SARS-CoV-2 Antigen (Rapid) Negative NEGATIVE White Blood Count 6.9 4.4-10.8 10^3/uL Red Blood Count 4.44 4.0-5.20 10^6/uL Hemoglobin 14.3 12.2-16.2 g/dL Hematocrit 41.3 36.0-46.0 % Mean Corpuscular Volume 93.0 80.0-100.0 fL Mean Corpuscular Hemoglobin 32.3 H 28.0-32.0 pg Mean Corpuscular Hemoglobin Concent 34.7 32.0-36.0 g/dL Red Cell Distribution Width 13.0 11.8-14.3 % Platelet Count 315 140-450 10^3/uL Mean Platelet Volume 8.0 6.9-10.8 fL Neutrophils (%) (Auto) 60.0 37.0-80.0 % Lymphocytes (%) (Auto) 29.8 10.0-50.0 % Monocytes (%) (Auto) 5.4 0.0-12.0 % Eosinophils (%) (Auto) 4.1 0.0-7.0 % Basophils (%) (Auto) 0.7 0.0-2.0 % Neutrophils # (Auto) 4.1 1.6-8.6 10 ^3/uL Lymphocytes # (Auto) 2.1 0.4-5.4 10 ^3/uL Monocytes # (Auto) 0.4 0-1.3 10 ^3/uL Eosinophils # (Auto) 0.3 0-0.8 10 ^3/uL Basophils # (Auto) 0 0-0.2 10 ^3/uL Nucleated Red Blood Cells 0.2 % Sodium Level 141 136-145 mmol/L Potassium Level 3.5 3.5-5.1 mmol/L Chloride Level 105 98-107 mmol/L Carbon Dioxide Level 24 20-31 mmol/L Anion Gap 12 5-15 Blood Urea Nitrogen 8 L 9-23 mg/dL Creatinine 0.83 0.550-1.02 mg/dL Glomerular Filtration Rate Calc 79 >90 mL/min BUN/Creatinine Ratio 9.6 L 10.0-20.0 Serum Glucose 92 74-106 mg/dL Lactic Acid Level 0.9 0.4-2.0 mmol/L Calcium Level 9.5 8.7-10.4 mg/dL Total Bilirubin 0.7 0.2-1.0 mg/dL Aspartate Amino Transferase (AST) 19 13-40 U/L Alanine Aminotransferase (ALT) 15 7-40 U/L Alkaline Phosphatase 76 46-116 U/L Total Protein 8.1 5.7-8.2 g/dL Albumin 5.0 H 3.2-4.8 g/dL Current Medications Medications (Trade) Dose Ordered Sig/Octavio Route Start Time Stop Time Status Last Admin Guaifenesin/ Codeine Phosphate (Robitussin/ Codeine Liq) 5 ml ONCE ONCE PO 03/11/25 22:30 03/11/25 22:31 DC 03/11/25 22:36 Albuterol (Ventolin Medneb) 2.5 mg ONCE ONCE NEB 03/11/25 22:30 03/11/25 22:31 DC 03/11/25 22:42 [place] [id number] Ph: [phone] DIAGNOSTIC IMAGING Diagnostic Imaging Report : [id number] Signed PATIENT: OTTONIEL RIVERA ACCT: [id number] UNIT: [id number] : 1960 LOC: ER ROOM / BED: / AGE / SEX: 65 / F ADM STATUS: REG ER SERVICE 19 ORDERING PHYSICIAN: DILCIA KRUEGER MD PROCEDURE(s): CXR2 - CHEST TWO VIEWS ROUTINE REASON: COUGH, SHORTNESS OF BREATH ORDER NUMBER(s): [id number], ACCESSION NUMBER(s): [id number] XY CHEST TWO VIEWS ROUTINE INDICATION: COUGH, SHORTNESS OF BREATH TECHNIQUE: Two views of the chest COMPARISON: XY CHEST TWO VIEWS ROUTINE on DOS: 03/08/25 FINDINGS/IMPRESSION: LUNGS: No pleural effusion, consolidation, or pneumothorax. atelectasis in the left lung base. MEDIASTINUM: Unremarkable. BONES: No acute osseous abnormality. OTHER: None. ATED BY: MURRAY RUBALCAVA MD DICTATED DATE/TIME: 03/11/252143 SIGNED BY: MURRAY RUBALCAVA MD SIGNED DATE/TIME: 03/11/252143 CC: Time of 1ST Reevaluation: 21:00 Reevaluation 1ST: Unchanged Patient Education/Counseling: Treatment, Need For Follow Up Family Education/Counseling: No Family Present SEPSIS Sepsis Screen Date sepsis recognized/suspect: Mar 11, 2025 Time Sepsis recognized/suspect: 1920 Recent Procedure: No On Antibiotic Therapy: Yes Respiratory Rate >20: No Heart Rate >90: Yes Temp<36 C (96.8 F) or >38.3 C: No SBP <90 or MAP <65 mmHG: No New Acute Mental Status Change: No Is the patient on CPAP, BIPAP,: No Physician Orders Blood Culture (03/11/25 19:27) Chest Two Views Routine (03/11/25 21:20) Vital Signs Date Time Temp Pulse Resp B/P (MAP) Pulse Ox O2 Delivery O2 Flow Rate FiO2 03/11/25 22:42 18 97 Room Air* 0 21 03/11/25 21:11 99 18 98 Room Air* 0 21 03/11/25 21:05 99.2 99 18 115/80 (92) 95 99.2 03/11/25 19:17 98.9 99 20 153/99 97 98.9 Laboratory Tests Test 03/11/25 19:56 Lactic Acid Level 0.9 mmol/L (0.4-2.0) White Blood Count 6.9 10^3/uL (4.4-10.8) Medications Medications Dose Ordered Sig/Octavio Route Start Time Stop Time Status Last Admin Dose Admin Albuterol 2.5 mg ONCE ONCE NEB 03/11/25 22:30 03/11/25 22:31 DC 03/11/25 22:42 Guaifenesin/ Codeine Phosphate 5 ml ONCE ONCE PO 03/11/25 22:30 03/11/25 22:31 DC 03/11/25 22:36 Departure 1 Departure Time of Disposition: 22:25 Impression: Primary Impression: Cough Disposition: 01 HOME / SELF CARE / HOMELESS Condition: Stable Additional Instructions: ED DISCHARGE INSTRUCTIONS Instructions: Please read all instructions provided in this packet carefully. Although you have been discharged from the Emergency Department, this does not mean that you have a "clean bill of health". No definitive diagnosis for your symptoms has been made today. It is possible that you are in the process of developing a serious illness. This is why you must return to the ED without fail if any new or worsening symptoms (especially if your symptoms include chest pain, trouble breathing, abdominal pain, fever, headache, confusion, trouble seeing, or trouble walking) It is also very important that you see a primary care provider (PCP) within the next 3-5 days to follow up. If you are unable to get an appointment, return to the ED for re-evaluation. SHORTNESS OF BREATH EDUCATION Shortness of breath has many causes. Sometimes conditions such as anxiety can lead to shortness of breath. Some people get mild shortness of breath when they exercise. Trouble breathing also can be a symptom of a serious problem, such as asthma, lung disease, emphysema, heart problems, and pneumonia. If your shortness of breath continues, you may need tests and treatment. Watch for any changes in your breathing and other symptoms. Follow-up care is a jimenez part of your treatment and safety. Be sure to make and go to all appointments, and call your doctor if you are having problems. It's also a good idea to know your test results and keep a list of the medicines you take. How can you care for yourself at home? Do not smoke or allow others to smoke around you. If you need help quitting, talk to your doctor about stop-smoking programs and medicines. These can increase your chances of quitting for good. Get plenty of rest and sleep. Take your medicines exactly as prescribed. Call your doctor if you think you are having a problem with your medicine. Find healthy ways to deal with stress. Exercise daily. Get plenty of sleep. Eat regularly and well. When should you call for help? Call 911 anytime you think you may need emergency care. For example, call if: You have severe shortness of breath. You have symptoms of a heart attack. These may include: Chest pain or pressure, or a strange feeling in the chest. Sweating. Shortness of breath. Nausea or vomiting. Pain, pressure, or a strange feeling in the back, neck, jaw, or upper belly or in one or both shoulders or arms. Lightheadedness or sudden weakness. A fast or irregular heartbeat. After you call 911, the mononitrotoluene operator may tell you to chew 1 adult-strength or 2 to 4 low-dose aspirin. Wait for an ambulance. Do not try to drive yourself. Call your doctor now or seek immediate medical care if: Your shortness of breath gets worse or you start to wheeze. Wheezing is a high- pitched sound when you breathe. You wake up at night out of breath or have to prop your head up on several pillows to breathe. You are short of breath after only light activity or while at rest. Watch closely for changes in your health, and be sure to contact your doctor if: You do not get better over the next 1 to 2 days. Credits for Shortness of Breath: Care Instructions Current as of: December 15, 2023 Author: [employer] Staff e-Prescriptions Albuterol Sulfate (VENTOLIN MDI) 90 Mcg Ih 90 MCG IN QIDPRN for 5 Days, #1 INH Prov: DILCIA KRUEGER MD 03/11/25 Discharged With: Self Comments MDM: Patient well-appearing, nontoxic. Advised prompt follow-up with PCP, return to the ED with any new, worsening or concerning symptoms. Extensive evaluation was performed in attempt to identify or rule out: (See differential diagnosis section) The following tests were ordered, and results were reviewed by me and discussed with patient: (See diagnostic results section) The following test were independently interpreted by me: N/A I reviewed and agreed with the following test results read by other providers: Chest x-ray I reviewed the following notes from the pt's past medical encounters: March 08, 2025 encounter for acute pharyngitis Decision regarding hospitalization or escalation of hospital level of care: Risks and benefits of admission for further treatment of patient's condition was considered however due to patient's stable condition patient will be discharged to follow up closely or return to care for worsening of condition or inability to follow up. Critical Care Note Critical Care Time?: No Stability Stability form required: No Heart Score Heart Score: Heart Score Response (Comments) Value History N/A 0 EKG N/A 0 Age N/A 0 Risk Factors N/A 0 Troponin N/A 0 Total 0 I personally scribed for DILCIA KRUEGER MD ([employer]) on 03/11/25 at 20:50. Electronically submitted by Lee Mckeon ([email or web address]). I personally scribed for DILCIA KRUEGER MD ([employer]) on 03/11/25 at 22:24. Electronically submitted by Lee Mckeon ([email or web address]). DILCIA KRUEGER MD Mar 11, 2025 20:50
[2025-03-11 21:11] VITALS: PULSE 99; RESP 18; O2SAT 98
--- NOTE | 2025-03-11 21:46 | DVH ---
XY CHEST TWO VIEWS ROUTINE INDICATION: COUGH, SHORTNESS OF BREATH TECHNIQUE: Two views of the chest COMPARISON: XY CHEST TWO VIEWS ROUTINE on DOS: 03/08/25 FINDINGS/IMPRESSION: LUNGS: No pleural effusion, consolidation, or pneumothorax. atelectasis in the left lung base. MEDIASTINUM: Unremarkable. BONES: No acute osseous abnormality. OTHER: None.
[2025-03-11 22:11] LABS: COVID19 ANTIGEN SOFIA FIA NEGATIVE (NEGATIVE)
[2025-03-11 22:15] LABS: Urine Protein, UAD 1+ (Negative)
[2025-03-11] MEDS ORDERED: ALBUAER3 IN (22:26)
[2025-03-11] MEDS: guaiFENesin-CODEINE Liq 5 ML UD PO ONE (22:36)
[2025-03-11] MEDS: ALBUTEROL SULF 2.5 MG/0.5ML(0.5%) NEB SOLN NEB ONE (22:42)
[2025-03-12 01:00] VITALS: BP 140/95; PULSE 91; RESP 18; TEMP 98.5; O2SAT 96
== END 2025-03-12 01:16 | disposition home or self-care (01) ==
LOC: ER 19:15
DX: R05.9 Cough, unspecified (principal); R11.0 Nausea; R19.7 Diarrhea, unspecified; I10 Essential (primary) hypertension; F41.9 Anxiety disorder, unspecified; Z20.822 Contact with and (suspected) exposure to COVID-19; Z79.899 Other long term (current) drug therapy; Z87.440 Personal history of urinary (tract) infections
CPT/HCPCS: 36415; 71046; 80053; 81001; 83605; 85025; 87040; 87426; 87804; 94640